=== PATIENT | female | born 1965 | race African-American/Black ===

== ENCOUNTER → 2016-10-14 | Day surgery (SDC) | payer OTHER ==
[~2016-10-14] MED LIST: AMLO10TA2 PO; ASPI325T4 PO; CHOL500015 PO; CITA20TA5 PO; CYAN10005 PO; CYAN25008 PO; CYCL10TA2 PO; ESTR2TAB PO; FURO-69 PO; HYDR-2672 PO; HYDR12.58 PO; IV RINGERS,LACTATED 1000ML 1,000 ML IV SCH; LIDOCAINE 2% PF Vial for OR 5 ML VIAL. ONE; MELO-150 PO; MONT10TA9 PO; OMEP20TA63 PO; PREG150C PO; PROPOFOL 20 ML IV ONE; RAMI10CA28 PO; SOTA80TA PO; TIZA4CAP PO; TRAM50TA PO
[2016-10-14 17:02] VITALS: BP 179/94
== END | disposition home or self-care (01) ==
LOC: ENDOS 15:30 → MERGE 16:00
PROVIDERS: ATTEND Internal Medicine Gastroenterology
DX: Z98.0 Intestinal bypass and anastomosis status (principal); I10 Essential (primary) hypertension; I48.91 Unspecified atrial fibrillation; J45.909 Unspecified asthma, uncomplicated; J44.9 Chronic obstructive pulmonary disease, unspecified; K21.9 Gastro-esophageal reflux disease without esophagitis; F41.9 Anxiety disorder, unspecified; Z85.43 Personal history of malignant neoplasm of ovary; Z90.710 Acquired absence of both cervix and uterus
CPT/HCPCS: 43239; G0500; J2704

== ENCOUNTER → 2016-12-26 | Day surgery (SDC) | payer OTHER ==
[~2016-12-26] MED LIST changes: -ASPI325T4 PO; +ASPI325T8 PO; -CHOL500015 PO; +CHOL500045 PO; -CYAN10005 PO; +CYAN10005 SQ; -HYDR-2672 PO; +HYDR-2766 PO; -MELO-150 PO; +MELO15TA23 PO; +PROPOFOL 0 ML IV ONE; -RAMI10CA28 PO; +RAMI10CA34 PO; -SOTA80TA PO; +SOTA80TA48 PO
[2016-12-26 09:52] VITALS: BP 98/51
--- NOTE | 2016-12-27 05:25 | HP ---
ADMIT DATE: 12/26/2016 HISTORY OF PRESENT ILLNESS: This is a 51-year-old -[place] female whose past medical history is significant for hypertension, gastroesophageal reflux disease as well as fibromyalgia, renal insufficiency, history of uterine cancer, status post hysterectomy and gastric bypass surgery, seen with persistent ulcer. Has been avoiding NSAIDs and other anti-inflammatories for the past 2 months. Upper endoscopy confirmed healing since she has been on Carafate and Prilosec ____. PAST MEDICAL HISTORY: Hypertension, status post gastric bypass surgery, uterine cancer status post hysterectomy as well as fibromyalgia, renal insufficiency. ALLERGIES: INCLUDE ACETAMINOPHEN, LATEX AND PROPOXYPHENE. MEDICATIONS: Include amlodipine, vitamin D3, citalopram, cyclobenzaprine, estradiol, Lasix, hydrocodone, ____, ramipril, Prilosec, sotalol and tramadol. FAMILY AND SOCIAL HISTORY: Significant for colon cancer with 1 sibling, breast cancer with multiple aunts and maternal grandmothers as well as hypertension. REVIEW OF SYSTEMS: As per records. PHYSICAL EXAMINATION: GENERAL: Reveals a well-nourished, well-developed -[place] female. VITAL SIGNS: Temp is 97.5, pulse ____, respiratory rate is 18. HEENT: Reveals a normocephalic, atraumatic head. Pupils and extraocular muscles not tested. Sclerae anicteric. NECK: Supple. LUNGS: Clear. CARDIOVASCULAR: Reveals an S1, S2 without S3, S4 or appreciable murmur. ABDOMEN: Reveals a soft abdomen, normal bowel sounds, without appreciable hepatosplenomegaly. EXTREMITIES: Reveals no cyanosis, clubbing or edema. IMPRESSION: Gastric ulcer. Surveillance exam is recommended today to confirm healing. Risks and benefits of the procedure including the risk of hemorrhage or perforation discussed with the patient who is willing to proceed at this time. TRUDI STRONG MD DR: LIO/meenu JOB#: [id number] / [id number]
== END | disposition home or self-care (01) ==
LOC: ENDOS 08:13
PROVIDERS: ATTEND Internal Medicine Gastroenterology
DX: K25.7 Chronic gastric ulcer without hemorrhage or perforation (principal); Z98.0 Intestinal bypass and anastomosis status; I48.91 Unspecified atrial fibrillation; J44.9 Chronic obstructive pulmonary disease, unspecified; J45.909 Unspecified asthma, uncomplicated; K21.9 Gastro-esophageal reflux disease without esophagitis; Z90.710 Acquired absence of both cervix and uterus; Z85.42 Personal history of malignant neoplasm of other parts of uterus; Z85.43 Personal history of malignant neoplasm of ovary; Z87.39 Personal history of other diseases of the musculoskeletal system and connective tissue; F41.9 Anxiety disorder, unspecified; I12.9 Hypertensive chronic kidney disease with stage 1 through stage 4 chronic kidney disease, or unspecified chronic kidney disease; N18.9 Chronic kidney disease, unspecified; Z88.6 Allergy status to analgesic agent; Z91.040 Latex allergy status; Z91.048 Other nonmedicinal substance allergy status
CPT/HCPCS: 43235; J2704

== ENCOUNTER → 2018-04-05 | Outpatient (CLI) | payer OTHER ==
[2016-12-26 09:52] VITALS: BP 98/51
[~2018-04-05] MED LIST changes: -AMLO10TA2 PO; +AMLO10TA6 PO; +ASPI81TA50 PO; -CITA20TA5 PO; +CITA20TA6 PO; +DULO20CA PO; +FLUT1DIS5 IH; -IV RINGERS,LACTATED 1000ML 1,000 ML IV SCH; -LIDOCAINE 2% PF Vial for OR 5 ML VIAL. ONE; +LOSA100T7 PO; +NAPR-677 PO; -PROPOFOL 0 ML IV ONE; -PROPOFOL 20 ML IV ONE; +PROVENTIL HFA6.7 GM IH; +ROFL500T7 PO
--- NOTE | 2018-04-05 15:30 | EKG ---
[facility] [address] [place] [address] Test Date: 2018-04-05 Test Time: 14:35:41 Pat Name: NICK MCADAMS Department: Room: Gender: F Utility Clerk: ABRAHAM Carrasquillo : 1965 Requested By: RICO JOHNSON Order Number: [id number] Reading MD: Hal Stephens MD Measurements Intervals [place] Rate: 69 P: 41 HI: 168 QRS: 10 QRSD: 78 T: 16 QT: 432 QTc: 465 Interpretive Statements SINUS RHYTHM Electronically Signed On 04-06-2018 10:07:57 CDT by Hal Stephens MD
--- NOTE | 2018-04-05 17:36 | RAD ---
Chest, 2 views, 04/05/2018: HISTORY: Preop evaluation The heart size and pulmonary vascularity are normal. There is mild linear scarring or atelectasis in the left lung laterally. No pulmonary consolidation is seen. There is no evidence of pleural fluid. There is a mild thoracolumbar scoliosis. IMPRESSION: Minimal linear scarring or atelectasis on the left. Electronically signed by: Rayshawn Palumbo MD (04/05/2018 5:32 PM) [facility]
== END | disposition home or self-care (01) ==
LOC: SURGPAT 14:17
PROVIDERS: ATTEND Neurological Surgery
DX: Z01.818 Encounter for other preprocedural examination (principal); M41.85 Other forms of scoliosis, thoracolumbar region; I12.9 Hypertensive chronic kidney disease with stage 1 through stage 4 chronic kidney disease, or unspecified chronic kidney disease; N18.9 Chronic kidney disease, unspecified; J44.9 Chronic obstructive pulmonary disease, unspecified; M17.12 Unilateral primary osteoarthritis, left knee; K21.9 Gastro-esophageal reflux disease without esophagitis; I48.91 Unspecified atrial fibrillation; Z85.43 Personal history of malignant neoplasm of ovary; Z85.42 Personal history of malignant neoplasm of other parts of uterus; Z87.39 Personal history of other diseases of the musculoskeletal system and connective tissue; Z90.710 Acquired absence of both cervix and uterus; Z88.6 Allergy status to analgesic agent; Z88.8 Allergy status to other drugs, medicaments and biological substances
CPT/HCPCS: 71046; 87641; 93005

== ENCOUNTER → 2018-04-06 | Day surgery (SDC) | payer OTHER ==
[~2018-04-06] VITALS: Ht 149.9 cm; Wt 118.8 kg
[~2018-04-06] MED LIST changes: +BACITRACIN 50,000 UNIT in IV NORMAL SALINE 1000ML BAG 1,000 ML IRR ONE; +BUPIVAC MPF-EPI 0.5%-1:200000 30 ML VIAL. ONE; +GELATIN SPONGE SIZE 100. ONE; +HYDROmorphone 2 MG/ML VIAL IV PRN; +IV NORMAL SALINE 1000ML BAG 1,000 ML IV SCH; +IV RINGERS,LACTATED 1000ML 1,000 ML IV SCH; +LIDOCAINE 1% PF 2 ML VIAL. ID PRN; +MIDAZOLAM HCL/PF 2 MG/2 ML VIAL. ONE; +MORPHINE SULFATE 2 MG/ML VIAL. IV PRN; +ONDANSETRON PF 4 MG/2 ML VIAL. IV PRN; +PROCHLORPERAZINE 10 MG/2 ML VIAL. IV PRN; +PROPOFOL 0 ML IV ONE; +PROPOFOL 50 ML IV ONE; +REMIFENTANIL 2 MG VIAL. IV ONE; +ROCURONIUM 50 MG/5 ML VIAL. ONE; +THROMBIN TOPICAL 20,000 UNIT SPRAY.SYRN KIT TP ONE; +fentaNYL PF VIAL 100 MCG/2 ML VIAL IV PRN; +fentaNYL PF VIAL 100 MCG/2 ML VIAL ONE
[2018-04-06 10:56] VITALS: BP 127/70
[2018-04-06 11:32] LABS: BASO % 0 % (0-3); EOS # 0.2 x10^3/uL (0.0-0.7); EOS % 3 % (0-3); HEMATOCRIT 34.3 % (36.0-47.0); HEMOGLOBIN 11.2 g/dL (12.0-15.5); LYMPH # 1.5 x10^3/uL (1.0-4.8); LYMPH % 22 % (24-48); MEAN CORPUSCULAR HEMOGLOBIN 27 pg (25-35); MEAN CORPUSCULAR HGB CONC 33 g/dL (31-37); MEAN CORPUSCULAR VOLUME 82 fL (79-100); MONO # 0.7 x10^3/uL (0.0-1.1); MONO % 9 % (0-9); NEUT # 4.6 x10^3uL (1.8-7.7); NEUT % 66 % (31-73); PLATELET COUNT 365 x10^3/uL (140-400); RED BLOOD COUNT 4.18 x10^6/uL (3.50-5.40); RED CELL DISTRIBUTION WIDTH 16.9 % (11.5-14.5)
[2018-04-06 11:40] LABS: PROTHROMBIN TIME PATIENT 12.8 SEC (11.7-14.0)
[2018-04-06 11:44] LABS: CALCIUM 9.5 mg/dL (8.5-10.1); CREATININE 1.1 mg/dL (0.6-1.0); GFR 62.6; POTASSIUM 4.2 mmol/L (3.5-5.1)
[2018-04-06 11:51] LABS: ALBUMIN 2.9 g/dL (3.4-5.0); ALBUMIN/GLOBULIN RATIO 0.6 (1.0-1.7); TOTAL BILIRUBIN 0.4 mg/dL (0.2-1.0); TOTAL PROTEIN 7.7 g/dL (6.4-8.2)
== END | disposition home or self-care (01) ==
LOC: SURG 10:19
PROVIDERS: ATTEND Neurological Surgery
DX: N88.2 Stricture and stenosis of cervix uteri (principal); Z53.8 Procedure and treatment not carried out for other reasons; Z88.6 Allergy status to analgesic agent; Z88.8 Allergy status to other drugs, medicaments and biological substances; Z91.040 Latex allergy status; Z91.048 Other nonmedicinal substance allergy status
CPT/HCPCS: 36415; 80053; 85025; 85610; J0690; J2704; J3490; J2250; J3010; J7030

== ENCOUNTER 2018-04-13 06:41 | Observation (INO) | payer OTHER ==
[~2018-04-13] VITALS: Ht 149.9 cm; Wt 118.8 kg
[2018-04-13] VITALS (10 sets, daily range): BP systolic 120–157; BP diastolic 74–96
[~2018-04-13 06:41] MED LIST changes: +BUPIVAC MPF-EPI 0.5%-1:200000 30 ML VIAL. INJ ONE; -BUPIVAC MPF-EPI 0.5%-1:200000 30 ML VIAL. ONE; -GELATIN SPONGE SIZE 100. ONE; -HYDROmorphone 2 MG/ML VIAL IV PRN; -IV NORMAL SALINE 1000ML BAG 1,000 ML IV SCH; -IV RINGERS,LACTATED 1000ML 1,000 ML IV SCH; -LIDOCAINE 1% PF 2 ML VIAL. ID PRN; -MIDAZOLAM HCL/PF 2 MG/2 ML VIAL. ONE; -MORPHINE SULFATE 2 MG/ML VIAL. IV PRN; -ONDANSETRON PF 4 MG/2 ML VIAL. IV PRN; -PROCHLORPERAZINE 10 MG/2 ML VIAL. IV PRN; -PROPOFOL 0 ML IV ONE; -PROPOFOL 50 ML IV ONE; -REMIFENTANIL 2 MG VIAL. IV ONE; -ROCURONIUM 50 MG/5 ML VIAL. ONE; -THROMBIN TOPICAL 20,000 UNIT SPRAY.SYRN KIT TP ONE; -fentaNYL PF VIAL 100 MCG/2 ML VIAL IV PRN; -fentaNYL PF VIAL 100 MCG/2 ML VIAL ONE
[2018-04-13] MEDS ORDERED: fentaNYL PF VIAL 100 MCG/2 ML VIAL IV PRN ×2 (07:00→13:30)
[2018-04-13] MEDS ORDERED: HYDROmorphone 2 MG/ML VIAL IV PRN (07:00)
[2018-04-13] MEDS ORDERED: MORPHINE SULFATE 2 MG/ML VIAL. IV PRN (07:00)
[2018-04-13] MEDS ORDERED: LIDOCAINE 1% PF 2 ML VIAL. ID PRN (07:00)
[2018-04-13] MEDS ORDERED: PROCHLORPERAZINE 10 MG/2 ML VIAL. IV PRN (07:00)
[2018-04-13] MEDS ORDERED: IV RINGERS,LACTATED 1000ML 1,000 ML IV SCH (07:00)
[2018-04-13] MEDS ORDERED: GELATIN SPONGE SIZE 100. ONE (07:52)
[2018-04-13] MEDS ORDERED: THROMBIN TOPICAL 20,000 UNIT SPRAY.SYRN KIT TP ONE (07:52)
[2018-04-13] MEDS ORDERED: PROPOFOL 20 ML IV ONE ×2 (07:59→09:36)
[2018-04-13] MEDS ORDERED: PROPOFOL 50 ML IV ONE ×4 (07:59→10:06)
[2018-04-13] MEDS ORDERED: DEXAMETHASONE SOD PHOS 20 MG/5 ML VIAL. ONE (07:59)
[2018-04-13] MEDS ORDERED: MIDAZOLAM HCL/PF 2 MG/2 ML VIAL. ONE (08:00)
[2018-04-13] MEDS ORDERED: ROCURONIUM 50 MG/5 ML VIAL. ONE (08:00)
[2018-04-13] MEDS ORDERED: fentaNYL PF VIAL 100 MCG/2 ML VIAL ONE ×3 (08:00→13:00)
[2018-04-13] MEDS ORDERED: PHENYLEPHRINE 10 MG/ML VIAL. ONE (08:01)
[2018-04-13] MEDS ORDERED: REMIFENTANIL 2 MG VIAL. IV ONE (08:01)
[2018-04-13] MEDS ORDERED: GLYCOPYRROLATE 1 MG/5 ML VIAL. ONE (09:11)
[2018-04-13] MEDS ORDERED: NEOSTIGMINE METHYLSULFATE 5 MG/5 ML SYRINGE. ONE (09:12)
[2018-04-13] MEDS ORDERED: PROPOFOL 100 ML IV ONE ×2 (09:13→10:40)
[2018-04-13] MEDS ORDERED: ePHEDrine PF IN SALINE 50 MG/5 ML DISP.SYRIN IV ONE (09:23)
[2018-04-13] MEDS ORDERED: REMIFENTANIL 1 MG VIAL. IV ONE ×3 (09:30→09:31)
[2018-04-13] MEDS ORDERED: DESFLURANE > 120 MINUTES IH ONE (12:20)
[2018-04-13] MEDS ORDERED: MAG HYDROX/ALUMINUM HYD/SIMETH 30 ML ORAL.SUSP PO PRN (12:30)
[2018-04-13] MEDS ORDERED: NALOXONE 0.4 MG/ML VIAL. IV PRN (12:30)
[2018-04-13] MEDS ORDERED: ONDANSETRON PF 4 MG/2 ML VIAL. IV PRN (12:30)
[2018-04-13] MEDS ORDERED: CALCIUM CARBONATE 500 MG TAB.CHEW PO PRN (12:30)
[2018-04-13] MEDS ORDERED: 0.9 % SODIUM CHLORIDE 10 ML DISP.SYRIN. IV PRN (12:30)
[2018-04-13] MEDS ORDERED: oxyCODONE IR 5 MG TABLET PO PRN (12:30)
[2018-04-13] MEDS ORDERED: ZOLPIDEM 5 MG TABLET. PO PRN (12:30)
[2018-04-13] MEDS ORDERED: MAGNESIUM HYDROXIDE 2,400 MG/30 ML ORAL.SUSP. PO PRN (12:30)
--- NOTE | 2018-04-13 12:44 | PDOC ---
BRIEF OPERATIVE NOTE Date: Apr 13, 2018 Pre-Op Diagnosis cervical disk herniations C4-5 and C5-6 with radiculopathy and weakness Post-Op Diagnosis same Procedure Performed ACDF 4-5, 5-6 Surgeon Monse Anesthesiologist Oscar Anesthesia Type: General Blood Loss 25mL Specimens Obtained cervical disk Findings prominent stenosis, motor potentials decreased on left at beginning of procedure and markedly improved at end of procedure Complications none apparent RICO JOHNSON MD Apr 13, 2018 12:44
[2018-04-13] MEDS ORDERED: NON FORMULARY ITEM (Albuterol Sulfate (Proventil Hfa Inhaler) 1 PUFF) IH PRN (12:45)
--- NOTE | 2018-04-13 13:07 | PDOC ---
Date and Time Patient had a documented episode of malignant hyperthermia in 1994. She has 2 immediate family members that also have had documented episodes. Halothane caffeine contraction test on muscle biopsy positive. Uneventful non triggering anesthetic. ETCO2 and temperature continuously monitored throughout OR. No changes ocurred. Awake and stable in PACU. She can be monitored on postop floor. See orders Current Medications Current Medications Fentanyl Citrate (Fentanyl 2ml Vial) 25 mcg PRN Q5MIN PRN IV MILD PAIN; Start 04/13/18 at 07:00; Stop 04/14/18 at 06:59 Fentanyl Citrate (Fentanyl 2ml Vial) 50 mcg PRN Q5MIN PRN IV MODERATE TO SEVERE PAIN; Start 04/13/18 at 07:00; Stop 04/14/18 at 06:59 Morphine Sulfate (Morphine Sulfate) 1 mg PRN Q10MIN PRN IV SEVERE PAIN; Start 04/13/18 at 07:00; Stop 04/14/18 at 06:59 Ringer's Solution 1,000 ml @ 30 mls/hr Q24H IV ; Start 04/13/18 at 07:00; Stop 04/13/18 at 18:59 Lidocaine HCl (Xylocaine-Mpf 1% 2ml Vial) 2 ml PRN 1X PRN ID IV START; Start 04/13/18 at 07:00; Stop 04/14/18 at 06:59 Hydromorphone HCl (Dilaudid) 0.5 mg PRN Q10MIN PRN IV SEV PAIN, Second choice; Start 04/13/18 at 07:00; Stop 04/14/18 at 06:59 Prochlorperazine Edisylate (Compazine) 5 mg PACU PRN PRN IV NAUSEA, MRX1; Start 04/13/18 at 07:00; Stop 04/14/18 at 06:59 Bacitracin 56686 unit/Sodium Chloride 1,000 ml @ 1,000 mls/hr 1X ONCE IRR Last administered on 04/13/18at 09:33; Start 04/13/18 at 06:00; Stop 04/13/18 at 06:59; Status DC Bupivacaine HCl/ Epinephrine Bitart (Sensorcain-Mpf Epi 0.5%-1:319108) 30 ml 1X ONCE INJ Last administered on 04/13/18at 09:33; Start 04/13/18 at 06:00; Stop 04/13/18 at 06:01; Status DC Cefazolin Sodium/ Dextrose 50 ml @ As Directed STK-MED ONCE IV ; Start 04/13/18 at 07:49; Stop 04/13/18 at 07:50; Status DC Propofol 20 ml @ As Directed STK-MED ONCE IV ; Start 04/13/18 at 07:59; Stop at 08:00; Status DC Dexamethasone Sodium Phosphate (Decadron) 20 mg STK-MED ONCE .ROUTE ; Start 04/13/18 at 07:59; Stop 04/13/18 at 08:00; Status DC Propofol 50 ml @ As Directed STK-MED ONCE IV ; Start 04/13/18 at 07:59; Stop at 08:00; Status DC Fentanyl Citrate (Fentanyl 2ml Vial) 100 mcg STK-MED ONCE .ROUTE ; Start at 08:00; Stop 04/13/18 at 08:02; Status DC Rocuronium Warner (Zemuron) 50 mg STK-MED ONCE .ROUTE ; Start 04/13/18 at 08:00 ; Stop 04/13/18 at 08:02; Status DC Midazolam HCl (Versed) 2 mg STK-MED ONCE .ROUTE ; Start 04/13/18 at 08:00; Stop 04/13/18 at 08:02; Status DC Remifentanil HCl (Ultiva) 2 mg STK-MED ONCE IV ; Start 04/13/18 at 08:01; Stop 04/13/18 at 08:02; Status DC Phenylephrine HCl (Issac-Synephrine Inj) 10 mg STK-MED ONCE .ROUTE ; Start at 08:01; Stop 04/13/18 at 08:02; Status DC Gelatin (Gelfoam Size 100) 1 each STK-MED ONCE .ROUTE Last administered on 04/13/18at 09:33; Start 04/13/18 at 07:52; Stop 04/13/18 at 08:53; Status DC Thrombin 20,000 unit STK-MED ONCE TP Last administered on 04/13/18at 09:33; Start 04/13/18 at 07:52; Stop 04/13/18 at 08:53; Status DC Glycopyrrolate (Robinul) 1 mg STK-MED ONCE .ROUTE ; Start 04/13/18 at 09:11; Stop 04/13/18 at 09:12; Status DC Neostigmine Methylsulfate (Neostigmine Methylsulfate) 5 mg STK-MED ONCE .ROUTE ; Start 04/13/18 at 09:12; Stop 04/13/18 at 09:13; Status DC Ephedrine Sulfate (ePHEDrine PF IN SALINE SYRINGE) 50 mg STK-MED ONCE IV ; Start 04/13/18 at 09:23; Stop 04/13/18 at 09:24; Status DC Remifentanil HCl (Ultiva) 1 mg STK-MED ONCE IV ; Start 04/13/18 at 09:30; Stop 04/13/18 at 09:31; Status DC Remifentanil HCl (Ultiva) 1 mg STK-MED ONCE IV ; Start 04/13/18 at 09:31; Stop 04/13/18 at 09:32; Status DC Remifentanil HCl (Ultiva) 1 mg STK-MED ONCE IV ; Start 04/13/18 at 09:31; Stop 04/13/18 at 09:32; Status DC Propofol 20 ml @ As Directed STK-MED ONCE IV ; Start 04/13/18 at 09:36; Stop at 09:37; Status DC Propofol 50 ml @ As Directed STK-MED ONCE IV ; Start 04/13/18 at 09:36; Stop at 09:37; Status DC Propofol 50 ml @ As Directed STK-MED ONCE IV ; Start 04/13/18 at 10:06; Stop at 10:07; Status DC Propofol 50 ml @ As Directed STK-MED ONCE IV ; Start 04/13/18 at 10:06; Stop at 10:07; Status DC Propofol 100 ml @ As Directed STK-MED ONCE IV ; Start 04/13/18 at 09:13; Stop 04/13/18 at 10:13; Status DC Propofol 100 ml @ As Directed STK-MED ONCE IV ; Start 04/13/18 at 10:40; Stop 04/13/18 at 11:41; Status DC Fentanyl Citrate (Fentanyl 2ml Vial) 100 mcg STK-MED ONCE .ROUTE ; Start at 12:19; Stop 04/13/18 at 12:20; Status DC Desflurane (Suprane) 90 ml STK-MED ONCE IH ; Start 04/13/18 at 12:20; Stop 04/13 at 12:21; Status DC Multivitamins (Thera M Plus) 1 tab DAILY PO ; Start 04/14/18 at 09:00; Status UNV Calcium/Vitamin D (Oscal D 500mg/ 200uts) 1 tab BIDWMEALS PO ; Start 04/13/18 at 17:00; Status UNV Ferrous Sulfate (Feosol) 325 mg BIDWMEALS PO ; Start 04/13/18 at 17:00; Status UNV Al Hydroxide/Mg Hydroxide (Mylanta Plus Xs) 30 ml PRN Q3HRS PRN PO HEARTBURN / GAS; Start 04/13/18 at 12:30; Status UNV Calcium Carbonate/ Glycine (Tums) 500 mg PRN Q3HRS PRN PO INDIGESTION; Start 04/13/18 at 12:30; Status UNV Diphenhydramine HCl (Benadryl) 25 mg PRN Q6HRS PRN PO ITCHING; Start 04/13/18 at 12:30; Status UNV Zolpidem Tartrate (Ambien) 5 mg PRN QHS PRN PO INSOMNIA, MAY REPEAT IN 1HR; Start 04/13/18 at 12:30; Status UNV Naloxone HCl (Narcan) 0.1 mg PRN Q2MIN PRN IV ADMIN; Start 04/13/18 at 12:30; Status UNV Sodium Chloride (Normal Saline Flush) 3 ml QSHIFT PRN IV AFTER MEDS AND BLOOD DRAWS; Start 04/13/18 at 12:30; Status UNV Oxycodone HCl (Roxicodone) 5 mg PRN Q4HRS PRN PO MILD PAIN, 1ST CHOICE; Start 04/13/18 at 12:30; Status UNV Oxycodone HCl (Roxicodone) 10 mg PRN Q4HRS PRN PO MODERATE PAIN, SEVERE PAIN; Start 04/13/18 at 12:30; Status UNV Methocarbamol (Robaxin) 750 mg TID PO ; Start 04/13/18 at 14:00; Status UNV Senna/Docusate Sodium (Senna Plus) 1 tab BID PO ; Start 04/13/18 at 21:00; Status UNV Docusate Sodium (Colace) 100 mg BID PO ; Start 04/13/18 at 21:00; Status UNV Magnesium Hydroxide (Milk Of Magnesia) 2,400 mg PRN Q12HR PRN PO CONSTIPATION; Start 04/13/18 at 12:30; Status UNV Ondansetron HCl (Zofran) 4 mg PRN Q6HRS PRN IV NAUESA, 1ST CHOICE; Start at 12:30; Status UNV Amlodipine Besylate (Norvasc) 10 mg DAILY PO ; Start 04/14/18 at 09:00; Status UNV Furosemide (Lasix) 10 mg DAILY PO ; Start 04/14/18 at 09:00; Status UNV Non-Formulary Medication (Albuterol Sulfate (Proventil Hfa Inhaler)) 1 puff PRN Q4HRS PRN IH FOR ASTHMA; Start 04/13/18 at 12:45; Status UNV Non-Formulary Medication (Cholecalciferol (Vitamin D3) (Vitamin D)) 50,000 unit WEEKLY PO ; Start 04/20/18 at 09:00; Status UNV Non-Formulary Medication (Duloxetine Hcl (Cymbalta)) 20 mg DAILY PO ; Start 04/22 at 09:00; Status UNV Non-Formulary Medication (Fluticasone/ Salmeterol (Advair 500-50 Diskus)) 1 inh BID IH ; Start 04/13/18 at 21:00; Status UNV Non-Formulary Medication (Losartan Potassium ) 100 mg DAILY PO ; Start at 09:00; Status UNV Non-Formulary Medication (Montelukast Sodium (Montelukast Sodium Tablet)) 10 mg HS PO ; Start 04/13/18 at 21:00; Status UNV Non-Formulary Medication (Omeprazole Magnesium (Prilosec Otc)) 1 tab DAILY PO ; Start 04/14/18 at 09:00; Status UNV Non-Formulary Medication (Pregabalin (Lyrica)) 200 mg BID PO ; Start 04/13/18 at 21:00; Status UNV Non-Formulary Medication (Sotalol Hcl (Sotalol)) 120 mg BID PO ; Start 04/13/18 at 21:00; Status UNV Fentanyl Citrate (Fentanyl 2ml Vial) 100 mcg STK-MED ONCE .ROUTE ; Start at 13:00; Stop 04/13/18 at 13:01; Status DC Active Scripts Active Reported Proventil Hfa Inhaler (Albuterol Sulfate) 6.7 Gm Hfa.aer.ad 1 Puff IH PRN Q4HRS PRN Advair 500-50 Diskus (Fluticasone/Salmeterol) 1 Each Disk.w.dev 1 Inh IH BID Daliresp (Roflumilast) 500 Mcg Tablet 500 Mcg PO Aspir-Low (Aspirin) 81 Mg Tablet. 81 Mg PO Cymbalta (Duloxetine Hcl) 20 Mg Capsule. 20 Mg PO DAILY Naproxen Sodium 550 Mg Tablet 550 Mg PO Losartan Potassium 100 Mg Tablet 100 Mg PO DAILY Amlodipine Besylate 10 Mg Tablet 10 Mg PO DAILY Lasix (Furosemide) 20 Mg Tablet 10 Mg PO DAILY Montelukast Sodium Tablet (Montelukast Sodium) 10 Mg Tablet 10 Mg PO HS Prilosec Otc (Omeprazole Magnesium) 20 Mg Tablet. 1 Tab PO DAILY Cyclobenzaprine Hcl 10 Mg Tablet 10 Mg PO TID Vitamin D (Cholecalciferol (Vitamin D3)) 5,000 Unit Tablet 50,000 Unit PO WEEKLY Estradiol 2 Mg Tablet 2 Mg PO Lyrica (Pregabalin) 150 Mg Capsule 200 Mg PO BID 30 Days Sotalol (Sotalol Hcl) 80 Mg Tablet 120 Mg PO BID Vitamin B-12 (Cyanocobalamin (Vitamin B-12)) 1,000 Mcg Tablet 1,000 Mcg SQ Q4WK Hydrocodone-Apap 10-325 (Hydrocodone Bit/Acetaminophen) 1 Each Tablet 1 Tab PO PRN Q6HRS PRN LAST VITALS Vital Signs Date Time Temp Pulse Resp B/P (MAP) Pulse Ox O2 Delivery O2 Flow Rate FiO2 04/13/18 07:33 97.3 76 18 140/82 98 Room Air 97.3 ALEXA HA MD Apr 13, 2018 13:07
[2018-04-13] MEDS: fentaNYL PF VIAL 100 MCG/2 ML VIAL IV PRN ×6 (13:13→23:29)
[2018-04-13] MEDS ORDERED: ALBUTEROL SULFATE 2.5 MG/3 ML NEBU. NEB PRN (13:45)
[2018-04-13] MEDS: METHOCARBAMOL 750 MG TABLET PO SCH ×2 (14:00→21:29)
[2018-04-13] MEDS: FERROUS SULFATE 325 MG TABLET. PO SCH (17:12)
[2018-04-13] MEDS: CALCIUM CARB/VIT D3 500/200 TABLET. PO SCH (17:12)
[2018-04-13] MEDS: diphenhydrAMINE HCL 25 MG CAPSULE PO PRN (17:12)
[2018-04-13] MEDS: BUDESONIDE 0.5 MG/2 ML NEBU. NEB SCH (19:22)
[2018-04-13] MEDS: ALBUTEROL SULFATE 2.5 MG/3 ML NEBU. NEB SCH (19:22)
[2018-04-13] MEDS ORDERED: MONTELUKAST SODIUM 10 MG TABLET. PO SCH (21:00)
[2018-04-13] MEDS ORDERED: NON FORMULARY ITEM (Fluticasone/Salmeterol (Advair 500-50 Diskus) 1 INH) IH SCH (21:00)
[2018-04-13] MEDS: DOCUSATE SODIUM 100 MG CAPSULE. PO SCH (21:29)
[2018-04-13] MEDS: PREGABALIN 50 MG CAPSULE PO SCH (21:29)
[2018-04-13] MEDS: SENNOSIDES/DOCUSATE 8.6/50MG TABLET. PO SCH (21:30)
[2018-04-13] MEDS: SOTALOL 80 MG TABLET. PO SCH (21:33)
[2018-04-14] VITALS (7 sets, daily range): BP systolic 112–163; BP diastolic 64–88
[2018-04-14] MEDS: oxyCODONE IR 5 MG TABLET PO PRN ×4 (04:10→18:06)
[2018-04-14] MEDS: ALBUTEROL SULFATE 2.5 MG/3 ML NEBU. NEB SCH ×3 (06:59→15:42)
[2018-04-14] MEDS: BUDESONIDE 0.5 MG/2 ML NEBU. NEB SCH (06:59)
[2018-04-14] MEDS ORDERED: PANTOPRAZOLE 40 MG TABLET.DR. PO SCH (07:30)
[2018-04-14] MEDS: SENNOSIDES/DOCUSATE 8.6/50MG TABLET. PO SCH (08:34)
[2018-04-14] MEDS: DOCUSATE SODIUM 100 MG CAPSULE. PO SCH (08:34)
[2018-04-14] MEDS: CALCIUM CARB/VIT D3 500/200 TABLET. PO SCH ×2 (08:34→18:06)
[2018-04-14] MEDS: FERROUS SULFATE 325 MG TABLET. PO SCH ×2 (08:34→18:06)
[2018-04-14] MEDS: METHOCARBAMOL 750 MG TABLET PO SCH ×3 (08:34→18:06)
[2018-04-14] MEDS: diphenhydrAMINE HCL 25 MG CAPSULE PO PRN (08:35)
[2018-04-14] MEDS: PREGABALIN 50 MG CAPSULE PO SCH (08:36)
[2018-04-14] MEDS: SOTALOL 80 MG TABLET. PO SCH (08:37)
--- NOTE | 2018-04-14 08:52 | PDOC ---
PROGRESS NOTES Subjective Subjective Reports significant improvement of left shoulder weakness and resolution of upper extremity paresthesias. Objective Objective Vital Signs Date Time Temp Pulse Resp B/P (MAP) Pulse Ox O2 Delivery O2 Flow Rate FiO2 04/14/18 08:41 90 20 152/88 (109) Room Air 04/14/18 07:02 100 2.0 04/14/18 06:07 98.2 98.2 Intake and Output 04/14/18 07:00 Intake Total 2570 ml Output Total 2375 ml Balance 195 ml Intake Oral 1270 ml IV Total 1300 ml Output Urine Total 2350 ml Estimated Blood Loss 25 ml Physical Exam Physical Exam AAOx4, NAD, speech fluent with good phonation, eating solid breakfast, MELENDREZ 5/5, except left shoulder abduction now 4-/5 compared to 2-/5 prior to surgery, sensation intact LT Assessment Assessment POD 1 C4-5, 5-6 ACDF Plan Plan of Care Overall, appears to be recovering well thus far. Mobilize with PT/OT, standard precautions. Home health services likely be beneficial as she will be home alone after couple days. Anticipate d/c soon/today. Comment Review of Relevant I have reviewed the following items samira (where applicable) has been applied. Medications Current Medications Fentanyl Citrate (Fentanyl 2ml Vial) 25 mcg PRN Q5MIN PRN IV MILD PAIN; Start 04/13/18 at 07:00; Stop 04/14/18 at 06:59; Status DC Fentanyl Citrate (Fentanyl 2ml Vial) 50 mcg PRN Q5MIN PRN IV MODERATE TO SEVERE PAIN Last administered on 04/13/18at 13:57; Start 04/13/18 at 07:00; Stop 04/14/18 at 06:59; Status DC Morphine Sulfate (Morphine Sulfate) 1 mg PRN Q10MIN PRN IV SEVERE PAIN; Start 04/13/18 at 07:00; Stop 04/14/18 at 06:59; Status DC Ringer's Solution 1,000 ml @ 30 mls/hr Q24H IV ; Start 04/13/18 at 07:00; Stop 04/13/18 at 18:59; Status DC Lidocaine HCl (Xylocaine-Mpf 1% 2ml Vial) 2 ml PRN 1X PRN ID IV START; Start 04/13/18 at 07:00; Stop 04/14/18 at 06:59; Status DC Hydromorphone HCl (Dilaudid) 0.5 mg PRN Q10MIN PRN IV SEV PAIN, Second choice; Start 04/13/18 at 07:00; Stop 04/14/18 at 06:59; Status DC Prochlorperazine Edisylate (Compazine) 5 mg PACU PRN PRN IV NAUSEA, MRX1; Start 04/13/18 at 07:00; Stop 04/14/18 at 06:59; Status DC Bacitracin 72257 unit/Sodium Chloride 1,000 ml @ 1,000 mls/hr 1X ONCE IRR Last administered on 04/13/18at 09:33; Start 04/13/18 at 06:00; Stop 04/13/18 at 06:59; Status DC Bupivacaine HCl/ Epinephrine Bitart (Sensorcain-Mpf Epi 0.5%-1:074491) 30 ml 1X ONCE INJ Last administered on 04/13/18at 09:33; Start 04/13/18 at 06:00; Stop 04/13/18 at 06:01; Status DC Cefazolin Sodium/ Dextrose 50 ml @ As Directed STK-MED ONCE IV ; Start 04/13/18 at 07:49; Stop 04/13/18 at 07:50; Status DC Propofol 20 ml @ As Directed STK-MED ONCE IV ; Start 04/13/18 at 07:59; Stop at 08:00; Status DC Dexamethasone Sodium Phosphate (Decadron) 20 mg STK-MED ONCE .ROUTE ; Start 04/13/18 at 07:59; Stop 04/13/18 at 08:00; Status DC Propofol 50 ml @ As Directed STK-MED ONCE IV ; Start 04/13/18 at 07:59; Stop at 08:00; Status DC Fentanyl Citrate (Fentanyl 2ml Vial) 100 mcg STK-MED ONCE .ROUTE ; Start at 08:00; Stop 04/13/18 at 08:02; Status DC Rocuronium [place] (Zemuron) 50 mg STK-MED ONCE .ROUTE ; Start 04/13/18 at 08:00 ; Stop 04/13/18 at 08:02; Status DC Midazolam HCl (Versed) 2 mg STK-MED ONCE .ROUTE ; Start 04/13/18 at 08:00; Stop 04/13/18 at 08:02; Status DC Remifentanil HCl (Ultiva) 2 mg STK-MED ONCE IV ; Start 04/13/18 at 08:01; Stop 04/13/18 at 08:02; Status DC Phenylephrine HCl (Issac-Synephrine Inj) 10 mg STK-MED ONCE .ROUTE ; Start at 08:01; Stop 04/13/18 at 08:02; Status DC Gelatin (Gelfoam Size 100) 1 each STK-MED ONCE .ROUTE Last administered on 04/13/18at 09:33; Start 04/13/18 at 07:52; Stop 04/13/18 at 08:53; Status DC Thrombin 20,000 unit STK-MED ONCE TP Last administered on 04/13/18at 09:33; Start 04/13/18 at 07:52; Stop 04/13/18 at 08:53; Status DC Glycopyrrolate (Robinul) 1 mg STK-MED ONCE .ROUTE ; Start 04/13/18 at 09:11; Stop 04/13/18 at 09:12; Status DC Neostigmine Methylsulfate (Neostigmine Methylsulfate) 5 mg STK-MED ONCE .ROUTE ; Start 04/13/18 at 09:12; Stop 04/13/18 at 09:13; Status DC Ephedrine Sulfate (ePHEDrine PF IN SALINE SYRINGE) 50 mg STK-MED ONCE IV ; Start 04/13/18 at 09:23; Stop 04/13/18 at 09:24; Status DC Remifentanil HCl (Ultiva) 1 mg STK-MED ONCE IV ; Start 04/13/18 at 09:30; Stop 04/13/18 at 09:31; Status DC Remifentanil HCl (Ultiva) 1 mg STK-MED ONCE IV ; Start 04/13/18 at 09:31; Stop 04/13/18 at 09:32; Status DC Remifentanil HCl (Ultiva) 1 mg STK-MED ONCE IV ; Start 04/13/18 at 09:31; Stop 04/13/18 at 09:32; Status DC Propofol 20 ml @ As Directed STK-MED ONCE IV ; Start 04/13/18 at 09:36; Stop at 09:37; Status DC Propofol 50 ml @ As Directed STK-MED ONCE IV ; Start 04/13/18 at 09:36; Stop at 09:37; Status DC Propofol 50 ml @ As Directed STK-MED ONCE IV ; Start 04/13/18 at 10:06; Stop at 10:07; Status DC Propofol 50 ml @ As Directed STK-MED ONCE IV ; Start 04/13/18 at 10:06; Stop at 10:07; Status DC Propofol 100 ml @ As Directed STK-MED ONCE IV ; Start 04/13/18 at 09:13; Stop 04/13/18 at 10:13; Status DC Propofol 100 ml @ As Directed STK-MED ONCE IV ; Start 04/13/18 at 10:40; Stop 04/13/18 at 11:41; Status DC Fentanyl Citrate (Fentanyl 2ml Vial) 100 mcg STK-MED ONCE .ROUTE ; Start at 12:19; Stop 04/13/18 at 12:20; Status DC Desflurane (Suprane) 90 ml STK-MED ONCE IH ; Start 04/13/18 at 12:20; Stop 04/13 at 12:21; Status DC Multivitamins (Thera M Plus) 1 tab DAILY PO Last administered on 04/14/18at 08: 34; Start 04/14/18 at 09:00 Calcium/Vitamin D (Oscal D 500mg/ 200uts) 1 tab BIDWMEALS PO Last administered on 04/14/18at 08:34; Start 04/13/18 at 17:00 Ferrous Sulfate (Feosol) 325 mg BIDWMEALS PO Last administered on 04/14/18at 08 :34; Start 04/13/18 at 17:00 Al Hydroxide/Mg Hydroxide (Mylanta Plus Xs) 30 ml PRN Q3HRS PRN PO HEARTBURN / GAS; Start 04/13/18 at 12:30 Calcium Carbonate/ Glycine (Tums) 500 mg PRN Q3HRS PRN PO INDIGESTION; Start 04/13/18 at 12:30 Diphenhydramine HCl (Benadryl) 25 mg PRN Q6HRS PRN PO ITCHING Last administered on 04/14/18at 08:35; Start 04/13/18 at 12:30 Zolpidem Tartrate (Ambien) 5 mg PRN QHS PRN PO INSOMNIA, MAY REPEAT IN 1HR; Start 04/13/18 at 12:30 Naloxone HCl (Narcan) 0.1 mg PRN Q2MIN PRN IV ADMIN; Start 04/13/18 at 12:30 Sodium Chloride (Normal Saline Flush) 3 ml QSHIFT PRN IV AFTER MEDS AND BLOOD DRAWS; Start 04/13/18 at 12:30 Oxycodone HCl (Roxicodone) 5 mg PRN Q4HRS PRN PO MILD PAIN, 1ST CHOICE Last administered on 04/13/18at 17:13; Start 04/13/18 at 12:30 Oxycodone HCl (Roxicodone) 10 mg PRN Q4HRS PRN PO MODERATE PAIN, SEVERE PAIN Last administered on 04/14/18at 04:10; Start 04/13/18 at 12:30 Methocarbamol (Robaxin) 750 mg TID PO Last administered on 04/14/18at 08:34; Start 04/13/18 at 14:00 Senna/Docusate Sodium (Senna Plus) 1 tab BID PO Last administered on at 08:34; Start 04/13/18 at 21:00 Docusate Sodium (Colace) 100 mg BID PO Last administered on 04/14/18at 08:34; Start 04/13/18 at 21:00 Magnesium Hydroxide (Milk Of Magnesia) 2,400 mg PRN Q12HR PRN PO CONSTIPATION; Start 04/13/18 at 12:30 Ondansetron HCl (Zofran) 4 mg PRN Q6HRS PRN IV NAUESA, 1ST CHOICE; Start at 12:30 Amlodipine Besylate (Norvasc) 10 mg DAILY PO Last administered on 04/14/18at 08 :40; Start 04/14/18 at 09:00 Furosemide (Lasix) 10 mg DAILY PO Last administered on 04/14/18at 08:38; Start 04/14/18 at 09:00 Non-Formulary Medication (Albuterol Sulfate (Proventil Hfa Inhaler)) 1 puff PRN Q4HRS PRN IH FOR ASTHMA; Start 04/13/18 at 12:45; Status UNV Non-Formulary Medication (Cholecalciferol (Vitamin D3) (Vitamin D)) 50,000 unit WEEKLY PO ; Start 04/20/18 at 09:00 Duloxetine HCl (Cymbalta) 20 mg DAILY PO Last administered on 04/14/18at 08:34 ; Start 04/14/18 at 09:00 Non-Formulary Medication (Fluticasone/ Salmeterol (Advair 500-50 Diskus)) 1 inh BID IH ; Start 04/13/18 at 21:00; Status UNV Losartan Potassium (Cozaar) 100 mg DAILY PO Last administered on 04/14/18at 08: 39; Start 04/14/18 at 09:00 Montelukast Sodium (Singulair) 10 mg QHS PO Last administered on 04/13/18at 21: 30; Start 04/13/18 at 21:00 Pantoprazole Sodium (Protonix) 40 mg DAILYAC PO Last administered on at 07:09; Start 04/14/18 at 07:30 Pregabalin (Lyrica) 200 mg BID PO Last administered on 04/14/18at 08:36; Start 04/13/18 at 21:00 Sotalol HCl (Betapace) 120 mg BID PO Last administered on 04/14/18at 08:37; Start 04/13/18 at 21:00 Fentanyl Citrate (Fentanyl 2ml Vial) 100 mcg STK-MED ONCE .ROUTE ; Start at 13:00; Stop 04/13/18 at 13:01; Status DC Fentanyl Citrate (Fentanyl 2ml Vial) 25 mcg PRN Q1HR PRN IV Pain; Start at 13:30 Fentanyl Citrate (Fentanyl 2ml Vial) 50 mcg PRN Q1HR PRN IV Pain Last administered on 04/13/18at 23:29; Start 04/13/18 at 13:45 Albuterol Sulfate (Ventolin Neb Soln) 2.5 mg RTQID NEB Last administered on 04/22at 06:59; Start 04/13/18 at 16:00 Albuterol Sulfate (Ventolin Neb Soln) 2.5 mg PRN Q6HRS PRN NEB SHORTNESS OF BREATH; Start 04/13/18 at 13:45 Budesonide (Pulmicort) 0.5 mg RTBID NEB Last administered on 04/14/18at 06:59; Start 04/13/18 at 20:00 Cefazolin Sodium/ Dextrose 50 ml @ 100 mls/hr 1X ONCE IV Last administered on 04/13/18at 09:05; Start 04/13/18 at 14:30; Stop 04/13/18 at 14:59; Status DC Active Scripts Active Reported Proventil Hfa Inhaler (Albuterol Sulfate) 6.7 Gm Hfa.aer.ad 1 Puff IH PRN Q4HRS PRN Advair 500-50 Diskus (Fluticasone/Salmeterol) 1 Each Disk.w.dev 1 Inh IH BID Daliresp (Roflumilast) 500 Mcg Tablet 500 Mcg PO Aspir-Low (Aspirin) 81 Mg Tablet. 81 Mg PO Cymbalta (Duloxetine Hcl) 20 Mg Capsule. 20 Mg PO DAILY Naproxen Sodium 550 Mg Tablet 550 Mg PO Losartan Potassium 100 Mg Tablet 100 Mg PO DAILY Amlodipine Besylate 10 Mg Tablet 10 Mg PO DAILY Lasix (Furosemide) 20 Mg Tablet 10 Mg PO DAILY Montelukast Sodium Tablet (Montelukast Sodium) 10 Mg Tablet 10 Mg PO HS Prilosec Otc (Omeprazole Magnesium) 20 Mg Tablet. 1 Tab PO DAILY Cyclobenzaprine Hcl 10 Mg Tablet 10 Mg PO TID Vitamin D (Cholecalciferol (Vitamin D3)) 5,000 Unit Tablet 50,000 Unit PO WEEKLY Estradiol 2 Mg Tablet 2 Mg PO Lyrica (Pregabalin) 150 Mg Capsule 200 Mg PO BID 30 Days Sotalol (Sotalol Hcl) 80 Mg Tablet 120 Mg PO BID Vitamin B-12 (Cyanocobalamin (Vitamin B-12)) 1,000 Mcg Tablet 1,000 Mcg SQ Q4WK Hydrocodone-Apap 10-325 (Hydrocodone Bit/Acetaminophen) 1 Each Tablet 1 Tab PO PRN Q6HRS PRN Vitals/I & O Vital Sign - Last 24 Hours 04/13/18 04/13/18 04/13/18 04/13/18 12:43 12:43 12:58 13:13 Temp 97.4 97.4 97.4 97.4 Pulse 74 84 Resp 18 18 16 B/P (MAP) 120/57 145/71 Pulse Ox 96 99 99 O2 Delivery Simple Mask Mask Simple Mask Simple Mask O2 Flow Rate 10 10 10 10.0 04/13/18 04/13/18 04/13/18 04/13/18 13:13 13:23 13:28 13:37 Temp 97.3 97.4 97.3 97.4 Pulse 74 74 Resp 16 14 18 16 B/P (MAP) 145/75 130/70 Pulse Ox 98 99 95 96 O2 Delivery Nasal Cannula Room Air Nasal Cannula Nasal Cannula O2 Flow Rate 2 2 2.0 04/13/18 04/13/18 04/13/18 04/13/18 13:43 13:57 13:58 14:13 Temp 97.5 97.5 97.5 97.5 97.5 97.5 Pulse 72 72 70 Resp 16 18 16 16 B/P (MAP) 144/71 144/71 142/68 Pulse Ox 96 95 96 98 O2 Delivery Nasal Cannula Nasal Cannula Nasal Cannula Nasal Cannula O2 Flow Rate 2 2.0 2 2 04/13/18 04/13/18 04/13/18 04/13/18 14:14 14:20 14:20 14:21 Temp 98.3 98.3 Pulse 74 72 B/P (MAP) 120/85 (97) 130/89 (103) Pulse Ox 95 98 O2 Delivery Mask Nasal Cannula Nasal Cannula O2 Flow Rate 2 2.0 2.0 2.0 04/13/18 04/13/18 04/13/18 04/13/18 14:30 14:50 15:20 15:50 Temp 98.0 97.9 98.0 97.9 Pulse 70 72 77 B/P (MAP) 134/96 (109) 149/ 149/91 (110) Pulse Ox 95 94 96 96 O2 Delivery Nasal Cannula Room Air Room Air 04/13/18 04/13/18 04/13/18 04/13/18 15:50 16:50 17:13 17:50 Temp 98.5 98.0 98.5 98.0 Pulse 84 79 B/P (MAP) 154/87 (109) 157/87 (110) Pulse Ox 96 93 94 O2 Delivery Room Air Room Air Room Air Nasal Cannula O2 Flow Rate 2.0 04/13/18 04/13/18 04/13/18 04/13/18 18:15 18:50 19:22 20:00 Temp 98.4 98.3 98.4 98.3 Pulse Ox 93 95 O2 Delivery Nasal Cannula Nasal Cannula O2 Flow Rate 2.0 2.0 04/13/18 04/13/18 04/13/18 04/13/18 20:00 20:01 20:15 21:15 Temp 98.2 98.3 98.2 98.3 Pulse 70 72 Resp 20 20 20 B/P (MAP) 150/90 (110) 152/92 (112) Pulse Ox 94 93 99 O2 Delivery Nasal Cannula Nasal Cannula Nasal Cannula Nasal Cannula O2 Flow Rate 2.0 2.0 2.0 2.0 04/13/18 04/13/18 04/13/18 04/13/18 21:33 23:00 23:29 23:59 Temp 98.2 98.2 Pulse 72 72 Resp 20 20 18 B/P (MAP) 152/92 136/74 (94) Pulse Ox 95 95 95 O2 Delivery Nasal Cannula Nasal Cannula Nasal Cannula O2 Flow Rate 2.0 2.0 2.0 04/14/18 04/14/18 04/14/18 04/14/18 02:39 04:10 05:15 06:07 Temp 98.0 98.2 98.0 98.2 Pulse 77 71 Resp 20 20 20 B/P (MAP) 149/79 (102) 157/76 (103) Pulse Ox 95 99 O2 Delivery Nasal Cannula Nasal Cannula Nasal Cannula Nasal Cannula O2 Flow Rate 2.0 2.0 2.0 2.0 04/14/18 04/14/18 04/14/18 04/14/18 06:08 07:02 08:37 08:39 Pulse 74 90 90 B/P (MAP) 131/76 (94) 152/88 152/88 Pulse Ox 100 O2 Delivery Nasal Cannula O2 Flow Rate 2.0 04/14/18 04/14/18 08:40 08:41 Pulse 90 90 Resp 20 B/P (MAP) 152/88 152/88 (109) O2 Delivery Room Air Intake and Output 04/13/18 04/13/18 04/14/18 15:00 23:00 07:00 Intake Total 1320 ml 700 ml 550 ml Output Total 25 ml 1650 ml 700 ml Balance 1295 ml -950 ml -150 ml RICO JOHNSON MD Apr 14, 2018 08:52
[2018-04-14] MEDS ORDERED: DULoxetine HCL 20 MG CAPSULE.DR PO SCH (09:00)
[2018-04-14] MEDS ORDERED: amLODIPine BESYLATE 10 MG TABLET PO SCH (09:00)
[2018-04-14] MEDS ORDERED: FUROSEMIDE 20 MG TABLET PO SCH (09:00)
[2018-04-14] MEDS ORDERED: MULTIVITAMIN with MINERAL TABLET. PO SCH (09:00)
[2018-04-14] MEDS ORDERED: LOSARTAN POTASSIUM 50 MG TABLET. PO SCH (09:00)
[2018-04-14] MEDS ORDERED: METH-38 PO (17:17)
[2018-04-14] MEDS ORDERED: OXYC5TAB95 PO (17:18)
[2018-04-14] MEDS ORDERED: SENN1TAB8 PO (17:19)
--- NOTE | 2018-04-14 19:08 | PATHOLOGY ---
[facility] Accession Number: [id number] . 01 Material submitted: . CERVICAL DISC . 01 Clinician provided ICD-10: M50.20 . 01 Clinical history: . Herniated cervical disc . 02 Diagnosis: Segments of fibrous and cartilaginous tissue and bone, cervical disc: - Degenerative changes of cartilaginous tissue. . (JPM/at;04/14/2018) QTA/04/14/2018 . 02 Comment: There is no evidence of an acute inflammatory process or malignancy. . 02 Electronically signed: . Leobardo Hayes MD, Pathologist NPI- [id number] . 01 Gross description: . Received in formalin labeled "Griffinforrester, Radha, cervical disc," are multiple segments of guzman rubbery and gritty tissue measuring 2.5 x 3.1 x 0.4 cm and aggregate dimensions, containing small fragments of possible bone. The tissue is filtered and submitted entirely in cassette A1, followi decalcification. (TSD; 04/13/2018) TOB/TOB . 02 Pathologist provided ICD-10: M50.30 . 02 CPT . 154945, [id number] Specimen Comment: A courtesy copy of this report has been sent to Specimen Comment: [phone]. Specimen Comment: Report sent to / DR MCCRACKEN Performed at: 01 [facility] [address], [place] [id number] MD Juanjose Richard MD Phone: [phone] Performed at: 02 [facility] [address] [place], [place] [id number] MD Leobardo Hayes MD Phone: [phone]
[2018-04-20] MEDS ORDERED: NON FORMULARY ITEM (Cholecalciferol (Vitamin D3) (Vitamin D) 50,000 UNIT) PO SCH (09:00)
--- NOTE | 2018-04-20 17:55 | OP ---
DATE OF SURGERY: 04/13/2018 SURGEON: Jovany Johnson MD. GREASE REFINING SUPERVISOR: None. PREOPERATIVE DIAGNOSES: Cervical stenosis with cervical radiculopathy, weakness , and cervical disk herniation. POSTOPERATIVE DIAGNOSES: Cervical stenosis with cervical radiculopathy, weakness, and cervical disk herniation. PROCEDURE: Anterior cervical discectomy and fusion of cervical 4-5 and cervical 5-6 utilizing Amendia anterior instrumentation and structural allograft interbody spacers at 4-5 and 5-6. ANESTHESIA: General. COMPLICATIONS: None intraprocedurally. INDICATIONS FOR THE PROCEDURE: The patient is a 52-year-old female who has developed upper extremity pain and paresthesia with weakness localized to herniated disks at cervical 4-5 and cervical 5-6. Please refer to the patient chart for additional detail. DESCRIPTION OF PROCEDURE: After informed consent was obtained, the patient was brought into the operating room. She was placed under general anesthesia. She was placed in the supine position. Neuromonitoring was instituted and baseline potentials were obtained. A shoulder bump was placed under the shoulders and the head was placed in the midline position in very slight extension. Fluoroscopy was utilized to localize an appropriate incision location. The anterior neck was then prepped and draped in usual sterile fashion. A horizontal incision centered over the region of cervical 4, 5 and 6 and was made with a scalpel. Blunt was carried out to undermine the soft tissues, and the platysma was sharply divided in the plane of the incision. A blunt plane was developed between the trachea and the esophagus medially and the carotid sheath laterally to approach the anterior cervical spine. The prevertebral fascia was taken down with a Kittner and the longus colli muscles were gently cauterized to serve as protection of the adjacent structures from the retractors. Self-retaining retractors were instituted and the appropriate levels were verified with fluoroscopy. Discectomy was performed at cervical 4-5 and cervical 5-6 at both locations by utilizing an 11 blade to incise the annulus and by removing disk material from both locations with a pituitary rongeur. The anterior osteophytes were taken down with a drill as well as a Kerrison rongeur and this bone was utilized as an autograft from the same incision with the structural allograft spacers as a fusion construct. Upon completion of both discectomies, the posterior longitudinal ligament was divided and removed with a Kerrison rongeur. Significant amount of herniated disk material was removed from the epidural space at both levels. Disk material was sent to pathology for permanent section. To further facilitate this discectomy at both locations, pins were instituted in the anterior vertebral bodies with attachment of distractors. Once discectomy was complete at both locations, the thecal sac was noted to be very well decompressed. This was verified with direct visualization as well as gentle palpation with a blunt micronerve hook. It was also noted that upon completion of the discectomy, motor potentials were significantly improved compared to baseline. Structural allograft spacers were instituted at cervical 4-5 and cervical 5-6. These were previously soaked in saline with the autograft powder, which was obtained from the osteophytes with the drill and captured with a Lukens trap and suction. Once the spacers were in place, the distraction pins were removed. Pristine hemostasis was achieved with some use of bipolar electrocautery as well as bone wax and FloSeal and cottonoids. The anterior cervical plate was instituted with 2 screws in each vertebral body at cervical 4 and cervical 5 and cervical 6. These were tightened with good purchase and locked according to the proposal editor's specifications. Fluoroscopy was utilized to verify the appropriate position of the grafts and instrumentation. The retractors were removed prior to the final imaging. Once this was complete, the wound was generously irrigated with antibiotic irrigation. Hemostasis was again achieved with FloSeal, cottonoids and some minimal use of bipolar cautery as well as generous irrigation. The platysma was reapproximated with 2-0 Vicryl in a simple interrupted fashion. Subcutaneous tissues were reapproximated with 2-0 Vicryl in interrupted inverted fashion. Skin was reapproximated with 4-0 Vicryl in a running subcuticular fashion. Mastisol and Steri-Strips were applied. The wound was dressed with Telfa and Tegaderm. At the end of the procedure, all needle and sponge counts were correct x 2. The patient was extubated in the operating room and taken to recovery in stable condition. Neuro monitoring potentials, particularly motor potentials, were significantly improved compared to baseline at the completion of the procedure. There were no intraprocedural complications apparent. JOVANY JOHNSON MD DR: PRINCESS/meenu JOB#: [id number] / [id number] KEISHA
== END 2018-04-14 18:50 | disposition home health service (06) ==
LOC: SURG 06:41 → 4 SOUTHEST 13:05
PROVIDERS: ADMIT Neurological Surgery; ATTEND Neurological Surgery
DX: M48.02 Spinal stenosis, cervical region (principal); M50.122 Cervical disc disorder at C5-C6 level with radiculopathy; M50.121 Cervical disc disorder at C4-C5 level with radiculopathy; N18.9 Chronic kidney disease, unspecified; J44.9 Chronic obstructive pulmonary disease, unspecified; K21.9 Gastro-esophageal reflux disease without esophagitis; I12.9 Hypertensive chronic kidney disease with stage 1 through stage 4 chronic kidney disease, or unspecified chronic kidney disease; M19.90 Unspecified osteoarthritis, unspecified site; I48.91 Unspecified atrial fibrillation
CPT/HCPCS: 20931; 22551; 22552; 22846; 76000; 88304; 88311; 94640; 96374; 96376; 97110; 97116; 97162; 97165; 97530; A7015; C1713; G0378; G0379; G8978; G8979; G8987; G8988; J0690; J1100; J2250; J2704; J2710; J3010; J3490; J7030; J7613; J7626; Q0163

== ENCOUNTER 2019-04-04 00:06 | Inpatient (IN) | payer MEDICARE, OTHER ==
[2019-04-03 23:45] VITALS: BP 85/66
[~2019-04-04] VITALS: Ht 152.4 cm; Wt 127.1 kg
[~2019-04-04 00:06] MED LIST changes: -AMLO10TA6 PO; +AMLO10TA8 PO; -BACITRACIN 50,000 UNIT in IV NORMAL SALINE 1000ML BAG 1,000 ML IRR ONE; -BUPIVAC MPF-EPI 0.5%-1:200000 30 ML VIAL. INJ ONE; +CYAN-25 SQ; -CYAN10005 SQ; -HYDR-2766 PO; +HYDR-2769 PO; +LOSA100T14 PO; -LOSA100T7 PO; +METH-38 PO; +MONT10TA49 PO; -MONT10TA9 PO; +OXYC5TAB4 PO; +SENN-161 PO
[2019-04-04 02:30] VITALS: BP 120/56
[2019-04-04] MEDS ORDERED: ESTR1TAB15 PO (04:28)
[2019-04-04] MEDS ORDERED: BREO ELLIPTA 21 EACH IH (04:28)
[2019-04-04] MEDS ORDERED: FURO40TA4 PO (04:28)
[2019-04-04] MEDS ORDERED: NYST15PO9 TP (04:28)
[2019-04-04] MEDS ORDERED: CHLO500T14 PO (04:28)
[2019-04-04] MEDS ORDERED: DULO60CA6 PO (04:28)
[2019-04-04] MEDS ORDERED: GABA600T7 PO (04:28)
[2019-04-04] MEDS ORDERED: OMEP40CA45 PO (04:28)
[2019-04-04] MEDS ORDERED: TIZA4CAP PO (04:28)
[2019-04-04] MEDS ORDERED: MORP-15 PO (04:28)
[2019-04-04] MEDS ORDERED: ALEN70TA6 PO (04:28)
[2019-04-04] MEDS ORDERED: NALO4SPR NS (04:28)
[2019-04-04] MEDS ORDERED: NYST100054 PO (04:28)
[2019-04-04] MEDS ORDERED: HYDR200T5 PO (04:28)
[2019-04-04] MEDS ORDERED: BUPR1PAT8 TP (04:28)
[2019-04-04] MEDS ORDERED: FERR325T14 PO (04:28)
[2019-04-04] MEDS ORDERED: CALC-98 PO (04:28)
[2019-04-04] MEDS ORDERED: HYDR50CA2 PO (04:28)
[2019-04-04] MEDS ORDERED: LEVO5TAB2 PO (04:28)
[2019-04-04] MEDS ORDERED: ALBUTEROL SULFATE 2.5 MG/3 ML NEBU. NEB PRN (04:45)
[2019-04-04 07:00] VITALS: BP 105/57
[2019-04-04 07:08] LABS: CALCIUM 7.9 mg/dL (8.5-10.1); GFR 14.1; POTASSIUM 3.8 mmol/L (3.5-5.1)
[2019-04-04 07:09] LABS: BASO % 0 % (0-3); EOS # 0.1 x10^3/uL (0.0-0.7); EOS % 1 % (0-3); HEMATOCRIT 32.7 % (36.0-47.0); HEMOGLOBIN 10.3 g/dL (12.0-15.5); LYMPH # 1.1 x10^3/uL (1.0-4.8); LYMPH % 9 % (24-48); MEAN CORPUSCULAR HEMOGLOBIN 28 pg (25-35); MEAN CORPUSCULAR HGB CONC 32 g/dL (31-37); MEAN CORPUSCULAR VOLUME 88 fL (79-100); MONO # 1.2 x10^3/uL (0.0-1.1); MONO % 10 % (0-9); NEUT # 9.3 x10^3/uL (1.8-7.7); NEUT % 79 % (31-73); PLATELET COUNT 233 x10^3/uL (140-400); RED BLOOD COUNT 3.72 x10^6/uL (3.50-5.40); RED CELL DISTRIBUTION WIDTH 18.1 % (11.5-14.5); WHITE BLOOD COUNT 11.8 x10^3/uL (4.0-11.0)
[2019-04-04] MEDS: IPRATRPIUM/ALBUTEROL 0.5/2.5MG 3 ML NEBU. NEB SCH ×4 (08:15→20:24)
[2019-04-04] MEDS ORDERED: INFLUENZA VAX SCREEN BY RX. MC PRN (09:00)
[2019-04-04] MEDS ORDERED: AZITHRMYCN 500MG IVPB FOR OMNI 250 ML IV SCH (09:00)
--- NOTE | 2019-04-04 09:32 | HP ---
ADMIT DATE: 04/04/2019 HISTORY OF PRESENT ILLNESS: The patient is a 53-year-old -Ira[place] female patient who was brought to the Emergency Room with altered mental status, generalized weakness. Her last known normal was 2 days ago. She states that she had nausea, vomiting, had difficulty keeping oral intake. She stated that she feels dehydrated. She takes chronic narcotic medication. On arrival, she was mildly hypotensive that has improved. She takes morphine twice a day as well as breakthrough pain medication. Did complain of left upper chest pain, shortness of breath. Denied any headache or visual changes. She was apparently investigated in the Emergency Room and has had a chest x-ray, which showed that there is a prominent infiltrate at the left hemothorax, other than some sparing of the apex. She also has some infiltrate in the right perihilar region and medial right lung base. No pneumothorax identified. The pericardial cardiac silhouette is somewhat poorly distinguished on the left due to infiltrate, may be degree of volume loss with left hemithorax. Because of altered mental status, the patient has had a CT scan of the head without contrast, which showed there is appearance of some loss of avendaño-white differentiation of the temporal lobes bilaterally. 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 Her other lab work showed a white cell count 17,200, hemoglobin 12, hematocrit 38, MCV 88, and platelet count 306,000. Her blood gases showed a pH of 7.33, a pCO2 of 41, pO2 of 70, and bicarbonate 22. An oxygen saturation of 93% on FiO2 of 28%. Her chemistry showed that her serum sodium was low at 126, potassium 4.2, chloride 90, bicarbonate 21, anion gap of 15, BUN 59, creatinine 4.8, estimated GFR was 11.4. Her glucose was 81, calcium was 8.4. Total bilirubin is normal. AST, ALT, alkaline phosphatase slightly elevated. Her troponin was less than 0.017. Total protein was 6.9, albumin 2.8. Urinalysis was essentially unremarkable, and her D-dimer was high at 1.4-6 mg/dL. Apparently, she was given 2 liters normal saline, was given acyclovir, Zithromax and ceftriaxone. We have consulted Infectious Disease specialist, the neurologist, as well as the air traffic controller center. PAST MEDICAL HISTORY: Significant for hypertension, atrial fibrillation, chronic kidney disease, morbid obesity, obstructive sleep apnea, bronchial asthma, osteoarthritis, fibromyalgia. She had an episode of malignant hyperthermia. She also had severe left neck pain radiating to the left upper extremity on previous admissions. PAST SURGICAL HISTORY: Significant for gastric bypass surgery in 2004. At that time, she lost about 135 pounds. She underwent a , laparoscopy, total abdominal hysterectomy, bilateral salpingo-oophorectomy, back surgery twice. She has also had left knee arthroscopic surgery. ALLERGIES: SHE IS ALLERGIC TO DARVOCET, LATEX, ADHESIVE TAPE, ALL ADHESIVES IN GENERAL. FAMILY HISTORY: She has 4 brothers and 4 sisters, all of her siblings have hypertension. Her father is alive at age of 88 and is known to have hypertension and diabetes. Mother is alive at age of 86 and is known to have hypertension. SOCIAL HISTORY: She is , lives on her own. She has 1 son who lives with her for 1 week and with his father 1 week. She never smoked, does not drink alcohol, or use any recreational drugs. 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 She is currently on disability. PHYSICAL EXAMINATION: GENERAL: On arrival to the hospital, she was somewhat lethargic, hypotensive, pale, but no jaundice, cyanosis, or thyromegaly. No jugular venous distention. No limb edema. VITAL SIGNS: Her heart rate was 75, blood pressure was 85/66, temperature was 97.9, respiratory rate was 22, and oxygen saturation was 91% on 3 liters of oxygen. HEAD, EYES, EARS, NOSE, AND THROAT: Showed normocephalic, atraumatic. NECK: Supple. HEART: Showed normal first and second heart sounds. No gallop or murmur. CHEST: Clear to auscultation. No crepitation or rhonchi. ABDOMEN: Distended, soft, nontender. NEUROLOGIC: She is lethargic, but arousable. All cranial nerves intact. EXTREMITIES: She moves extremities without difficulty. ADMISSION DIAGNOSES: 1. Community-acquired pneumonia. 2. 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 We will continue with IV ceftriaxone, continue with IV Zithromax. Continue with her BiPAP machine as she has morbid obesity with obstructive sleep apnea. We will continue with acyclovir as per Pharmacy to adjust the dose. We have already consulted the Infectious Disease, the air traffic controller center, as well as neurologist. DANNA COBB MD DR: PETERSON/meenu JOB#: [id number] / [id number]
--- NOTE | 2019-04-04 09:37 | NUR ---
PT, OT, ST request for orders Per RN, pt with possible cerebral edema. Please order PT, OT, and bedside swallow if physician agrees. Kathleen Mosqueda, SPT
--- NOTE | 2019-04-04 09:51 | PN ---
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 She was started on ceftriaxone, Zithromax, as well as acyclovir. She received 1 dose. Her creatinine is 4 and I did consult the Pharmacy to adjust the dose of acyclovir. I have consulted Infectious Disease, the neurologist, as well as the pathology technician. When I saw her this morning, she continued to be somewhat lethargic, but arousable. Continued to complain of shortness of breath, but denied any headache, nausea, or vomiting. OBJECTIVE: GENERAL: When I examined her, she was pale, but no jaundice, cyanosis, or thyromegaly. No jugular venous distention. No limb edema. VITAL SIGNS: Her heart rate was 75, blood pressure was 105/57, temperature was 97.4, respiratory rate was 20, and oxygen saturation was 100%. HEAD, EYES, EARS, NOSE, AND THROAT: Showed normocephalic, atraumatic. NECK: Supple. HEART: Showed normal first and second heart sounds. No gallop or murmur. CHEST: Shows central trachea, equal bilateral chest expansion, air entry, vesicular sounds. I could not really appreciate any crepitation or rhonchi. ABDOMEN: Distended, soft, nontender. NEUROLOGIC: She is awake, somewhat lethargic, but arousable. All cranial nerves are intact. He moves extremities without difficulty. LABORATORY DATA: Her lab work this morning showed a white cell count of 11,800, hemoglobin 10, hematocrit 32, MCV 88, and platelet count 233,000. Serum sodium is up from 126 to 130, potassium 3.8, chloride 96, bicarbonate 23, anion gap of 11, BUN 56, creatinine 4, estimated GFR was 49 mL per minute. Her glucose was 80, calcium was 7.9. Beta natriuretic peptide was 1535. ASSESSMENT: The patient was admitted with community-acquired pneumonia, for which she continued to be on IV Zithromax and ceftriaxone; questionable herpes simplex encephalitis and was continued to have IV acyclovir. I will arrange for her to have an MRI. I did consult the neurologist, pathology technician, as well as Infectious Disease and we will decide the further management accordingly. DANNA COBB MD DR: Makayla JOB#: [id number] / [id number]
--- NOTE | 2019-04-04 10:26 | RAD ---
PORTABLE CHEST 1V History: Pneumonia Comparison: April 05, 2018. Findings: Multifocal patchy pulmonary opacities within the left midlung and bilateral lower lungs. No pleural effusion. Normal heart size. Lower cervical postoperative changes. Impression: 1. Multifocal pulmonary opacities, may represent pneumonia given history. Recommend follow-up to ensure resolution. Electronically signed by: Servando Frazier DO (04/04/2019 10:23 AM) [id number]
[2019-04-04] MEDS: cefTRIAXone IV Push 1 GM VIAL. IVP SCH (10:32)
[2019-04-04] MEDS: AZITHROMYCIN 500 MG in IV NORMAL SALINE 250ML 250 ML IV SCH (10:34)
[2019-04-04 11:00] VITALS: BP 126/71
[2019-04-04 11:13] LABS: AMPHETAMINE/METHAMPHETAMINE NEG (NEG); BARBITURATES NEG (NEG); BENZODIAZEPINES NEG (NEG); CANNABINOIDS NEG (NEG); COCAINE NEG (NEG); METHADONE NEG (NEG); OPIATES POS (NEG); PHENCYCLIDINE NEG (NEG)
--- NOTE | 2019-04-04 11:25 | PDOC2 ---
CONSULT Date of Consult Date of Consult DATE: 04/04/19 TIME: 10:56 Reason for Consult Reason for Consult: Acute on chronic renal failure History of Present Illness Reason for Visit: Pt is a 53-year-old -Monegasque female patient who was brought to the Emergency Room with altered mental status,generalized weakness. She had nausea, vomiting, had difficulty keeping oral intake She is on chronic narcotics for pain- morphine twice a day as well for breakthrough pain medication. . On arrival, she was mildly hypotensive that has improved. Did complain of left upper chest pain, shortness of breath. Chest x-ray in ER prominent infiltrate at the left hemothorax, infiltrate in the right perihilar region and medial right lung base. status. CT head done as well, based on findings of CT head and CxR as she was given a dose of acyclovir , Abx and was transferred to [facility] to consult the Infectious Disease, neurologist. She states her mouth is feeling dry. Denies any urinary complaints . No CP or SOB. Denies any NSAID's or any OTC supplements She is on lasix 20 mg QD and Losartan at home Lab work - sodium 126, BUN 59, creatinine 4.8. Current Medications Current Medications Current Medications Info (FLU VACCINE SCREEN per RX) 1 each PRN DAILY PRN UNABLE TO RESPOND; Start 04/04/19 at 09:00 Albuterol/ Ipratropium (Duoneb) 3 ml RTQID NEB Last administered on 04/04/19at 08:15; Start 04/04/19 at 08:00 Albuterol Sulfate (Ventolin Neb Soln) 2.5 mg PRN Q4HRS PRN NEB SHORTNESS OF BREATH; Start 04/04/19 at 04:45 Ceftriaxone Sodium (Rocephin) 1 gm Q24H IVP Last administered on 04/04/19at 10:32; Start 04/04/19 at 10:00 Azithromycin 250 ml @ 250 mls/hr DAILY IV ; Start 04/04/19 at 09:00; Status UNV Azithromycin 500 mg/Sodium Chloride 250 ml @ 250 mls/hr Q24H IV Last administered on 04/04/19at 10:34; Start 04/04/19 at 10:00 Acyclovir Sodium 500 mg/Dextrose 110 ml @ 110 mls/hr Q24H IV ; Start 04/04/19 at 12:00 Active Scripts Active Reported Butrans (Buprenorphine) 1 Each Patch.tdwk 1 Patch TP WEEKLY Narcan (Naloxone HCl) 4 Mg [place] 4 Mg NS PRN PRN Breo Ellipta 200-25 Mcg INH (Fluticasone/Vilanterol) 1 Each Blst.w.dev 1 Puff IH DAILY Tizanidine Hcl 4 Mg Capsule 4 Mg PO TID PRN Cymbalta (Duloxetine Hcl) 60 Mg Capsule.dr 1 Cap PO DAILY Furosemide 40 Mg Tablet 1 Tab PO DAILY Levocetirizine Dihydrochloride 5 Mg Tablet 1 Tab PO QHS Hydroxychloroquine Sulfate 200 Mg Tablet 200 Mg PO DAILY Omeprazole 40 Mg Capsule.dr 1 Cap PO DAILY Chlorzoxazone 500 Mg Tablet 500 Mg PO PRN TID PRN Estradiol 1 Mg Tablet 1 Tab PO DAILY Hydroxyzine Pamoate 50 Mg Capsule 50 Mg PO DAILY Calcium + Vitamin D Tablet (Calcium Carbonate/Vitamin D3) 1 Each Tablet 1 Each PO DAILY Alendronate Sodium 70 Mg Tablet 1 Tab PO WEEKLY Ferrous Sulfate 325 Mg Tablet 1 Tab PO DAILY Nystatin 100,000 Unit/1 Ml Oral.susp 5 Ml PO QID Nystatin 15 Gm Powder 1 Pat TP QID PRN Morphine Sulfate Er (Morphine Sulfate) 15 Mg Tablet.er 1 Tab PO BID Gabapentin 600 Mg Tablet 600 Mg PO BID Senna-Docusate Sodium Tablet (Sennosides/Docusate Sodium) 1 Each Tablet 1 Each PO BID Proventil Hfa Inhaler (Albuterol Sulfate) 6.7 Gm Hfa.aer.ad 1 Puff IH PRN Q4HRS PRN Aspir-Low (Aspirin) 81 Mg Tablet. 81 Mg PO Losartan Potassium 100 Mg Tablet 100 Mg PO DAILY Amlodipine Besylate 10 Mg Tablet 10 Mg PO DAILY Montelukast Sodium Tablet (Montelukast Sodium) 10 Mg Tablet 10 Mg PO HS Vitamin D (Cholecalciferol (Vitamin D3)) 5,000 Unit Tablet 50,000 Unit PO WEEKLY Sotalol (Sotalol Hcl) 80 Mg Tablet 120 Mg PO BID Allergies Allergies: Coded Allergies: acetaminophen (Verified Allergy, Intermediate, RASH, FEVER, 04/05/18) adhesive tape (Verified Allergy, Intermediate, 04/04/19) latex (Verified Allergy, Intermediate, 04/05/18) propoxyphene (Verified Allergy, Intermediate, RASH, FEVER, 04/05/18) baclofen (Verified Adverse Reaction, Severe, HALLUCINATIONS, 04/05/18) ROS Review of System Per HPI Physical Exam Physical Exam GENERAL: NAD HEEN-O2 by NC NECK: Supple. LUNGS CTA, decreased at bases HEART: RRR ABDOMEN: Obese, Non tender NEUROLOGIC: Alert and oriented EXTREMITIES: Edema 1-2+ since last week per patient - Zepeda + , No CVA or SP tenderness SKIN- No rash Vital Signs Vital Signs Date Time Temp Pulse Resp B/P (MAP) Pulse Ox O2 Delivery O2 Flow Rate FiO2 04/04/19 08:16 98 BiPAP/CPAP 04/04/19 07:00 97.4 75 20 105/57 (73) 30.0 97.4 Assessment & Plan NAY - Vasomotor/ ATN 2/2 Dehydration Hx of Vomiting Renal function improving Cr 4.8--> 4.0 E-Lytes and acid base stable, Currently No Indication fro Emergent HD Supportive care,IVF, UA , Strict I/O, Monitor CKD stage 3- baseline in 2017 (last seen in our office ) 1.1 HypoNa- Improving 126--> 130 Hypertension On losartan and Lasix per Home med list Hypotensive at initial presentation Hold both Lasix and Losartan Abnormal CT scan head - Neurology following DW Pt and RN at bedside Labs Labs Laboratory Tests Test 04/04/19 06:35 White Blood Count 11.8 x10^3/uL (4.0-11.0) Red Blood Count 3.72 x10^6/uL (3.50-5.40) Hemoglobin 10.3 g/dL (12.0-15.5) Hematocrit 32.7 % (36.0-47.0) Mean Corpuscular Volume 88 fL (79-100) Mean Corpuscular Hemoglobin 28 pg (25-35) Mean Corpuscular Hemoglobin Concent 32 g/dL (31-37) Red Cell Distribution Width 18.1 % (11.5-14.5) Platelet Count 233 x10^3/uL (140-400) Neutrophils (%) (Auto) 79 % (31-73) Lymphocytes (%) (Auto) 9 % (24-48) Monocytes (%) (Auto) 10 % (0-9) Eosinophils (%) (Auto) 1 % (0-3) Basophils (%) (Auto) 0 % (0-3) Neutrophils # (Auto) 9.3 x10^3/uL (1.8-7.7) Lymphocytes # (Auto) 1.1 x10^3/uL (1.0-4.8) Monocytes # (Auto) 1.2 x10^3/uL (0.0-1.1) Eosinophils # (Auto) 0.1 x10^3/uL (0.0-0.7) Basophils # (Auto) 0.0 x10^3/uL (0.0-0.2) Sodium Level 130 mmol/L (136-145) Potassium Level 3.8 mmol/L (3.5-5.1) Chloride Level 96 mmol/L (98-107) Carbon Dioxide Level 23 mmol/L (21-32) Anion Gap 11 (6-14) Blood Urea Nitrogen 56 mg/dL (7-20) Creatinine 4.0 mg/dL (0.6-1.0) Estimated GFR (Cockcroft-Gault) 14.1 Glucose Level 80 mg/dL (70-99) Calcium Level 7.9 mg/dL (8.5-10.1) OV-Lkm-E-Type Natriuretic Peptide 1535 pg/mL (0-124) Laboratory Tests Test 04/04/19 06:35 White Blood Count 11.8 x10^3/uL (4.0-11.0) Red Blood Count 3.72 x10^6/uL (3.50-5.40) Hemoglobin 10.3 g/dL (12.0-15.5) Hematocrit 32.7 % (36.0-47.0) Mean Corpuscular Volume 88 fL (79-100) Mean Corpuscular Hemoglobin 28 pg (25-35) Mean Corpuscular Hemoglobin Concent 32 g/dL (31-37) Red Cell Distribution Width 18.1 % (11.5-14.5) Platelet Count 233 x10^3/uL (140-400) Neutrophils (%) (Auto) 79 % (31-73) Lymphocytes (%) (Auto) 9 % (24-48) Monocytes (%) (Auto) 10 % (0-9) Eosinophils (%) (Auto) 1 % (0-3) Basophils (%) (Auto) 0 % (0-3) Neutrophils # (Auto) 9.3 x10^3/uL (1.8-7.7) Lymphocytes # (Auto) 1.1 x10^3/uL (1.0-4.8) Monocytes # (Auto) 1.2 x10^3/uL (0.0-1.1) Eosinophils # (Auto) 0.1 x10^3/uL (0.0-0.7) Basophils # (Auto) 0.0 x10^3/uL (0.0-0.2) Sodium Level 130 mmol/L (136-145) Potassium Level 3.8 mmol/L (3.5-5.1) Chloride Level 96 mmol/L (98-107) Carbon Dioxide Level 23 mmol/L (21-32) Anion Gap 11 (6-14) Blood Urea Nitrogen 56 mg/dL (7-20) Creatinine 4.0 mg/dL (0.6-1.0) Estimated GFR (Cockcroft-Gault) 14.1 Glucose Level 80 mg/dL (70-99) Calcium Level 7.9 mg/dL (8.5-10.1) TB-Hcg-D-Type Natriuretic Peptide 1535 pg/mL (0-124) Review All relevant outside records, renal labs, imaging studies, telemetry/EKG's were reviewed. Images Images 1. Multifocal pulmonary opacities, may represent pneumonia given history. Recommend follow-up to ensure resolution. CT head -- CT scan of the head without contrast, which showed there is appearance of some loss of avendaño-white differentiation of the temporal lobes bilaterally. Scanning may be due to underlying edema, sequelae of encephalitis including herpes encephalitis would be in the differential consideration if there is a true finding; sequelae of ischemia considered atypical given the pattern of the involvement SAGE LENZ MD Apr 04, 2019 11:25
[2019-04-04] MEDS ORDERED: ACYCLOVIR SODIUM 500 MG in IV DEXTROSE 5% 100ML 100 ML IV SCH (12:00)
--- NOTE | 2019-04-04 12:29 | CONS ---
DATE OF CONSULTATION: 04/04/2019 PULMONARY CONSULTATION ATTENDING PHYSICIAN: Dr. Garrido. REASON FOR CONSULTATION: Hypoxia, abnormal chest x-ray. HISTORY OF PRESENT ILLNESS: The patient is a 53-year-old female with a BMI of 58 and is morbidly obese. She has history of sleep apnea for which she is on CPAP. She was brought into the Emergency Room with altered mental status and generalized weakness. She has some nausea. She said she had some pain in the left upper arm. She felt like somebody bit her. She has put on 25 pounds in the last 3-4 weeks. She has lower extremity edema. She has increased shortness of breath. She said she did not have a cough, no fever. No chest pain. No dysuria, no focal weakness. I reviewed the patient's chest x-ray, which showed multifocal interstitial infiltrates in the left mid lung as well as in the lower lobes. I have been asked to see her for further evaluation. PAST MEDICAL HISTORY: Significant for history of hypertension, atrial fibrillation, history of CKD, history of morbid obesity, history of obstructive sleep apnea, history of asthma, osteoarthritis, fibromyalgia, history of malignant hyperthermia. SURGERIES: Gastric bypass surgery in 2004, lost 135 pounds, but she has gained 25 pounds in the last 3 weeks. History of and other surgeries as per Dr. Garrido's note. ALLERGIES: ACETAMINOPHEN, BACLOFEN, LATEX, and PROPOXYPHENE. MEDICATIONS: Reviewed as listed in the MRAD including azithromycin and DuoNebs and acyclovir. REVIEW OF SYSTEMS: Twelve-point system obtained. Pertinent positives discussed in my history of present illness, otherwise noncontributory. All systems that were negative were reviewed as well. SOCIAL HISTORY: No recent tobacco use. No recreational drug use. PHYSICAL EXAMINATION: VITAL SIGNS: Reviewed, afebrile, blood pressure 126/71, pulse ox 97% on 3 liters. NECK: Supple. LUNGS: With diminished breath sounds. CARDIOVASCULAR: With a regular rate and rhythm. ABDOMEN: Soft, markedly obese. EXTREMITIES: With pitting edema bilaterally. LABORATORY DATA: Reviewed. White cell count 11.8, hemoglobin 10.3, platelets are 233. BUN 56 and a creatinine of 4.0. ProBNP is 1535. TSH 0.5. IMPRESSION: 1. Acute hypoxic respiratory failure secondary to bilateral infiltrates, etiology could be related to right heart failure versus possible pneumonia. 2. Abnormal chest x-ray with bilateral infiltrates. Clinically, she lacks symptoms of pneumonia. However, we will obtain procalcitonin level. It is certainly possible that it could be right heart failure from her underlying obesity, hypoventilation syndrome. We will do a noncontrast CT chest for further evaluation. 3. No significant tobacco history. 4. Chronic kidney disease could be an acute component. 5. 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 ID has been consulted. 6. Underlying obstructive sleep apnea, on CPAP with good compliance at home. RECOMMENDATIONS: 1. Continue with present oxygen. 2. Antibiotics per Infectious Disease. 3. DuoNeb. 4. Noncontrast CT chest for further evaluation of her parenchymal infiltrates, rule out pneumonia versus CHF. 5. Obtain echocardiogram. 6. DVT prophylaxis. 7. Further recommendations to follow. Discussed with RN. CHANTAL CABALLERO MD DR: LOUIS/meenu JOB#: [id number] / [id number]
--- NOTE | 2019-04-04 12:44 | NUR ---
SS following for discharge planning. SS reviewed pt chart. Pt is from home and is currently requiring oxygen. SS will continue to follow for discharge planning.
--- NOTE | 2019-04-04 13:51 | EEG ---
DATE OF SERVICE: 04/04/2019 EEG NUMBER: [id number]. OBJECTIVE: This is a 53-year-old -[place] female patient with history of mental status changes and confusion for [address] showed bilateral temporal edema. EEG was requested to help rule out seizure. METHODS: Twenty electrodes were applied according to the international 10-20 electrode placement system. EKG monitoring, hyperventilation, intermittent photic stimulation, monopolar and bipolar montages are routinely utilized. The record was obtained on a digital system with video monitoring. FINDINGS: 1. Background: The patient was recorded in the awake, drowsy, and sleep states. The overall background amplitude is 10-25 microvolts. A posterior dominant rhythm of 8 Hz is observed. 2. Abnormalities: No specific epileptiform discharge or electrographic seizure is seen. No diffuse slowing. 3. Activation: Hyperventilation was performed with fair efforts and normal response. Intermittent photic stimulation was performed with photic driving. IMPRESSION: This EEG is within the broad normal limits for the awake, drowsy, and sleep states. No focal, lateralizing, specific epileptiform discharge or electrographic seizure is seen. JO CORNEJO MD DR: AMMON/meenu JOB#: [id number] / [id number]
--- NOTE | 2019-04-04 14:02 | PDOC ---
Infectious Disease Note Vital Sign Vital Signs Vital Signs Date Time Temp Pulse Resp B/P (MAP) Pulse Ox O2 Delivery O2 Flow Rate FiO2 04/04/19 11:00 97.7 76 16 126/71 (89) 97 Nasal Cannula 3.0 97.7 Labs Lab Laboratory Tests Test 04/04/19 06:35 04/04/19 10:50 White Blood Count 11.8 x10^3/uL (4.0-11.0) Red Blood Count 3.72 x10^6/uL (3.50-5.40) Hemoglobin 10.3 g/dL (12.0-15.5) Hematocrit 32.7 % (36.0-47.0) Mean Corpuscular Volume 88 fL (79-100) Mean Corpuscular Hemoglobin 28 pg (25-35) Mean Corpuscular Hemoglobin Concent 32 g/dL (31-37) Red Cell Distribution Width 18.1 % (11.5-14.5) Platelet Count 233 x10^3/uL (140-400) Neutrophils (%) (Auto) 79 % (31-73) Lymphocytes (%) (Auto) 9 % (24-48) Monocytes (%) (Auto) 10 % (0-9) Eosinophils (%) (Auto) 1 % (0-3) Basophils (%) (Auto) 0 % (0-3) Neutrophils # (Auto) 9.3 x10^3/uL (1.8-7.7) Lymphocytes # (Auto) 1.1 x10^3/uL (1.0-4.8) Monocytes # (Auto) 1.2 x10^3/uL (0.0-1.1) Eosinophils # (Auto) 0.1 x10^3/uL (0.0-0.7) Basophils # (Auto) 0.0 x10^3/uL (0.0-0.2) Sodium Level 130 mmol/L (136-145) Potassium Level 3.8 mmol/L (3.5-5.1) Chloride Level 96 mmol/L (98-107) Carbon Dioxide Level 23 mmol/L (21-32) Anion Gap 11 (6-14) Blood Urea Nitrogen 56 mg/dL (7-20) Creatinine 4.0 mg/dL (0.6-1.0) Estimated GFR (Cockcroft-Gault) 14.1 Glucose Level 80 mg/dL (70-99) Calcium Level 7.9 mg/dL (8.5-10.1) EW-Klt-S-Type Natriuretic Peptide 1535 pg/mL (0-124) Thyroid Stimulating Hormone (TSH) 0.560 uIU/mL (0.358-3.74) Urine Opiates Screen Pos (NEG) Urine Methadone Screen Neg (NEG) Urine Barbiturates Neg (NEG) Urine Phencyclidine Screen Neg (NEG) Urine Amphetamine/Methamphetamine Neg (NEG) Urine Benzodiazepines Screen Neg (NEG) Urine Cocaine Screen Neg (NEG) Urine Cannabinoids Screen Neg (NEG) Urine Ethyl Alcohol Neg (NEG) Objective Assessment Acute encephalopathy and abnormal CT head concerning for herpetic encephalitis Multifocal pulmonary infiltrates, pneumonia cannot be ruled out. CT chest pending Leukocytosis - improved Oral ulcer NAY on CKD Hyponatremia (NA 126) Involuntary jerking. 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 The chart was reviewed. The case was discussed. Agree with the plan of care. Attending Co-Sign Attending Co-Sign The patient was seen and interviewed as well as examined at the bedside. The chart was reviewed. The case was discussed. Agree with the plan of care. CATARINA RAZA APRN Apr 04, 2019 14:02 ORLY LINDSEY MD Apr 04, 2019 15:50
[2019-04-04] MEDS: IV NORMAL SALINE 1000ML BAG 1,000 ML IV SCH ×2 (14:44→22:06)
[2019-04-04 15:00] VITALS: BP 97/71
--- NOTE | 2019-04-04 15:43 | RAD ---
EXAM: Left upper extremity venous Doppler sonogram. HISTORY: Pain and swelling. TECHNIQUE: Chaney scale and color Doppler sonographic evaluation of the left upper extremity veins with spectral waveform analysis was performed. FINDINGS: There is normal color flow, normal compressibility and there are normal spectral waveforms in the left upper extremity veins. IMPRESSION: No Doppler evidence of left upper extremity deep venous thrombosis. Electronically signed by: Cait Weiner MD (04/04/2019 3:40 PM) [place] [id number]
--- NOTE | 2019-04-04 15:50 | PDOC2 ---
NEUROLOGY CONSULT Date of Admission Date of Admission DATE: 04/04/19 TIME: 15:35 Reason for Consult Reason for Consult: IMPRESSION: Abnormal HCT finding. Confusion. Generalized weakness Metabolic encephalopathy. AFib. Pneumonia? HTN. Renal failure. Morbid obesity. RECOMMENDATIONS/PLAN: Brain MRI wo contrast. Due to renal failure, contrast not given. Lab: see orders. LP maybe considered pending MRI findings. Treat medical diseases. EEG on 04/04/19: Within normal. HISTORY OF THE PRESENT ILLNESS: This is a 53-y-old AA female patient with above medical diseases has been having mental status changes, confusion and generalized weakness for about 1 week. She was seen in [facility] ER and her HCT was reported questionable bilateral temporal lobe edema, so she was transferred to [facility] for further evaluation. Patient denied recent acute illness. No focalized sensory or motor deficits except generalized weakness. PAST MEDICAL HISTORY: Hypertension, atrial fibrillation, history of CKD, history of morbid obesity, history of obstructive sleep apnea, history of asthma, osteoarthritis, fibromyalgia, history of malignant hyperthermia. PAST SURGERY HISTORY: Gastric bypass surgery in 2004, lost 135 pounds, but she has gained 25 pounds in the last 3 weeks. . ALLERGIES: ACETAMINOPHEN, BACLOFEN, LATEX, and PROPOXYPHENE. MEDICATIONS: Refer to [facility] REVIEW OF SYSTEMS: Constitutional: Morbid obesity.. Head: No traumatic brain or head injury. Skin: No edema, or rash. Ear: No infection, tinnitus. Eyes: No vision loss or color blindness. Nose: No bleeding or purulent discharges. Hearing: No hearing decrease. Neck: No injury. Breast: No history of cancer, masses,or discharges. Cardiac: AFib, HTN. Pulmonary: No COPD. GI: No GI ulcer, GI bleeding. Urinary/genital: UTI. Endocrinologic: Diabetes Mellitus. Skeletomuscular: Generalized weakness. Neurological: see HP. Psychiatric: Denies drug use/abuse. Otherwise, not [id number] review of systems. PHYSICAL EXAMINATION: General appearance is in subacute distress. HEENT: Normocephalic and nontraumatic. Eyes, nose, ears, and throat are unremarkable. Neck is supple. No lymphadenopathy. No crepitus. Cardiovascular: S1, S2, regular rate and rhythm. Pulmonary: decreased to auscultation bilaterally. Abdomen: Bowel sounds are positive. Extremities: No rash, lesions, or edema. No restriction of range of motion NEUROLOGICAL EXAMINATION: Awake. Oriented to time, place and person. PERRL. EOMI. CN: no focal findings. Muscle tone: within normal. Muscle strength: 4 due to obesity. DTR: 0-1 due to obesity. Plantar reflex: Flexor response bilaterally Gait: not examined in bed. Sensory exam: no abnormal findings. No cerebellar signs elicited. F-T-N test accurate. Current Medications Current Medications Current Medications Info (FLU VACCINE SCREEN per RX) 1 each PRN DAILY PRN UNABLE TO RESPOND; Start 04/04/19 at 09:00; Status Cancel Albuterol/ Ipratropium (Duoneb) 3 ml RTQID NEB Last administered on 04/04/19at 08:15; Start 04/04/19 at 08:00 Albuterol Sulfate (Ventolin Neb Soln) 2.5 mg PRN Q4HRS PRN NEB SHORTNESS OF BREATH; Start 04/04/19 at 04:45 Ceftriaxone Sodium (Rocephin) 1 gm Q24H IVP Last administered on 04/04/19at 10:32; Start 04/04/19 at 10:00 Azithromycin 250 ml @ 250 mls/hr DAILY IV ; Start 04/04/19 at 09:00; Status UNV Azithromycin 500 mg/Sodium Chloride 250 ml @ 250 mls/hr Q24H IV Last administered on 04/04/19at 10:34; Start 04/04/19 at 10:00 Acyclovir Sodium 500 mg/Dextrose 110 ml @ 110 mls/hr Q24H IV Last administered on 04/04/19at 14:39; Start 04/04/19 at 12:00 Sodium Chloride 1,000 ml @ 100 mls/hr Q10H IV Last administered on 04/04/19at 14:44; Start 04/04/19 at 11:30 Influenza Virus Vaccine Quadrival (Afluria Quad 2019-20 (3yr Up) Syringe) 0.5 ml ONCE ONCE VAX IM ; Start 04/05/19 at 09:00; Stop 04/05/19 at 09:01 Lactobacillus Rhamnosus (Culturelle) 1 cap BID PO ; Start 04/04/19 at 21:00 Active Scripts Active Reported Butrans (Buprenorphine) 1 Each Patch.tdwk 1 Patch TP WEEKLY Narcan (Naloxone HCl) 4 Mg [place]and 4 Mg NS PRN PRN Breo Ellipta 200-25 Mcg INH (Fluticasone/Vilanterol) 1 Each Blst.w.dev 1 Puff IH DAILY Tizanidine Hcl 4 Mg Capsule 4 Mg PO TID PRN Cymbalta (Duloxetine Hcl) 60 Mg Capsule.dr 1 Cap PO DAILY Furosemide 40 Mg Tablet 1 Tab PO DAILY Levocetirizine Dihydrochloride 5 Mg Tablet 1 Tab PO QHS Hydroxychloroquine Sulfate 200 Mg Tablet 200 Mg PO DAILY Omeprazole 40 Mg Capsule.dr 1 Cap PO DAILY Chlorzoxazone 500 Mg Tablet 500 Mg PO PRN TID PRN Estradiol 1 Mg Tablet 1 Tab PO DAILY Hydroxyzine Pamoate 50 Mg Capsule 50 Mg PO DAILY Calcium + Vitamin D Tablet (Calcium Carbonate/Vitamin D3) 1 Each Tablet 1 Each PO DAILY Alendronate Sodium 70 Mg Tablet 1 Tab PO WEEKLY Ferrous Sulfate 325 Mg Tablet 1 Tab PO DAILY Nystatin 100,000 Unit/1 Ml Oral.susp 5 Ml PO QID Nystatin 15 Gm Powder 1 Pat TP QID PRN Morphine Sulfate Er (Morphine Sulfate) 15 Mg Tablet.er 1 Tab PO BID Gabapentin 600 Mg Tablet 600 Mg PO BID Senna-Docusate Sodium Tablet (Sennosides/Docusate Sodium) 1 Each Tablet 1 Each PO BID Proventil Hfa Inhaler (Albuterol Sulfate) 6.7 Gm Hfa.aer.ad 1 Puff IH PRN Q4HRS PRN Aspir-Low (Aspirin) 81 Mg Tablet. 81 Mg PO Losartan Potassium 100 Mg Tablet 100 Mg PO DAILY Amlodipine Besylate 10 Mg Tablet 10 Mg PO DAILY Montelukast Sodium Tablet (Montelukast Sodium) 10 Mg Tablet 10 Mg PO HS Vitamin D (Cholecalciferol (Vitamin D3)) 5,000 Unit Tablet 50,000 Unit PO WEEKLY Sotalol (Sotalol Hcl) 80 Mg Tablet 120 Mg PO BID Allergies Allergies: Allergies Coded Allergies Type Severity Reaction Last Updated Verified acetaminophen Allergy Intermediate RASH, FEVER 04/05/18 Yes adhesive tape Allergy Intermediate 04/04/19 Yes latex Allergy Intermediate 04/05/18 Yes propoxyphene Allergy Intermediate RASH, FEVER 04/05/18 Yes baclofen Adverse Reaction Severe HALLUCINATIONS 04/05/18 Yes ROS Review of System The patient denies any associated fevers, chills, headache, ear pain, rhinorrhea, sore throat, stiff neck, productive cough, chest pain, shortness of breath, back or flank pain, abdominal pain, nausea, vomiting, diarrhea, constipation, dysuria, rash, numbness, weakness, tingling, incontinence, difficulty ambulating, or diaphoresis. Physical Exam Physical Exam General: Well developed, well nourished, no acute distress, well appearing HEENT: Pupils equally round and reactive to light, EOMI, no discharge, normal conjunctiva Neck: Supple, no nuchal rigidity, no JVD, trachea midline, no tenderness Cardiac: RRR, no murmurs, no gallops, no rubs Chest/Lungs: CTAB, no wheeze, no rhonchi, no crackles Abdomen: soft, non-distended, no guarding, no peritoneal signs, non-tender Back: No tenderness Extremities: no edema, pulses intact, non-tender,capillary refill <3 sec bilateral upper and lower extremities, Neuro: Alert and oriented x 4, no focal deficits, normal speech Vitals Vitals: Vital Signs Date Time Temp Pulse Resp B/P (MAP) Pulse Ox O2 Delivery O2 Flow Rate FiO2 04/04/19 15:00 97.8 81 18 97/71 (80) 94 Nasal Cannula 3.0 97.8 Labs Labs Laboratory Tests Test 04/04/19 06:35 04/04/19 10:50 White Blood Count 11.8 x10^3/uL (4.0-11.0) Red Blood Count 3.72 x10^6/uL (3.50-5.40) Hemoglobin 10.3 g/dL (12.0-15.5) Hematocrit 32.7 % (36.0-47.0) Mean Corpuscular Volume 88 fL (79-100) Mean Corpuscular Hemoglobin 28 pg (25-35) Mean Corpuscular Hemoglobin Concent 32 g/dL (31-37) Red Cell Distribution Width 18.1 % (11.5-14.5) Platelet Count 233 x10^3/uL (140-400) Neutrophils (%) (Auto) 79 % (31-73) Lymphocytes (%) (Auto) 9 % (24-48) Monocytes (%) (Auto) 10 % (0-9) Eosinophils (%) (Auto) 1 % (0-3) Basophils (%) (Auto) 0 % (0-3) Neutrophils # (Auto) 9.3 x10^3/uL (1.8-7.7) Lymphocytes # (Auto) 1.1 x10^3/uL (1.0-4.8) Monocytes # (Auto) 1.2 x10^3/uL (0.0-1.1) Eosinophils # (Auto) 0.1 x10^3/uL (0.0-0.7) Basophils # (Auto) 0.0 x10^3/uL (0.0-0.2) Sodium Level 130 mmol/L (136-145) Potassium Level 3.8 mmol/L (3.5-5.1) Chloride Level 96 mmol/L (98-107) Carbon Dioxide Level 23 mmol/L (21-32) Anion Gap 11 (6-14) Blood Urea Nitrogen 56 mg/dL (7-20) Creatinine 4.0 mg/dL (0.6-1.0) Estimated GFR (Cockcroft-Gault) 14.1 Glucose Level 80 mg/dL (70-99) Calcium Level 7.9 mg/dL (8.5-10.1) GX-Kur-L-Type Natriuretic Peptide 1535 pg/mL (0-124) Thyroid Stimulating Hormone (TSH) 0.560 uIU/mL (0.358-3.74) Urine Opiates Screen Pos (NEG) Urine Methadone Screen Neg (NEG) Urine Barbiturates Neg (NEG) Urine Phencyclidine Screen Neg (NEG) Urine Amphetamine/Methamphetamine Neg (NEG) Urine Benzodiazepines Screen Neg (NEG) Urine Cocaine Screen Neg (NEG) Urine Cannabinoids Screen Neg (NEG) Urine Ethyl Alcohol Neg (NEG) Laboratory Tests Test 04/04/19 06:35 04/04/19 10:50 White Blood Count 11.8 x10^3/uL (4.0-11.0) Red Blood Count 3.72 x10^6/uL (3.50-5.40) Hemoglobin 10.3 g/dL (12.0-15.5) Hematocrit 32.7 % (36.0-47.0) Mean Corpuscular Volume 88 fL (79-100) Mean Corpuscular Hemoglobin 28 pg (25-35) Mean Corpuscular Hemoglobin Concent 32 g/dL (31-37) Red Cell Distribution Width 18.1 % (11.5-14.5) Platelet Count 233 x10^3/uL (140-400) Neutrophils (%) (Auto) 79 % (31-73) Lymphocytes (%) (Auto) 9 % (24-48) Monocytes (%) (Auto) 10 % (0-9) Eosinophils (%) (Auto) 1 % (0-3) Basophils (%) (Auto) 0 % (0-3) Neutrophils # (Auto) 9.3 x10^3/uL (1.8-7.7) Lymphocytes # (Auto) 1.1 x10^3/uL (1.0-4.8) Monocytes # (Auto) 1.2 x10^3/uL (0.0-1.1) Eosinophils # (Auto) 0.1 x10^3/uL (0.0-0.7) Basophils # (Auto) 0.0 x10^3/uL (0.0-0.2) Sodium Level 130 mmol/L (136-145) Potassium Level 3.8 mmol/L (3.5-5.1) Chloride Level 96 mmol/L (98-107) Carbon Dioxide Level 23 mmol/L (21-32) Anion Gap 11 (6-14) Blood Urea Nitrogen 56 mg/dL (7-20) Creatinine 4.0 mg/dL (0.6-1.0) Estimated GFR (Cockcroft-Gault) 14.1 Glucose Level 80 mg/dL (70-99) Calcium Level 7.9 mg/dL (8.5-10.1) CY-Jhb-H-Type Natriuretic Peptide 1535 pg/mL (0-124) Thyroid Stimulating Hormone (TSH) 0.560 uIU/mL (0.358-3.74) Urine Opiates Screen Pos (NEG) Urine Methadone Screen Neg (NEG) Urine Barbiturates Neg (NEG) Urine Phencyclidine Screen Neg (NEG) Urine Amphetamine/Methamphetamine Neg (NEG) Urine Benzodiazepines Screen Neg (NEG) Urine Cocaine Screen Neg (NEG) Urine Cannabinoids Screen Neg (NEG) Urine Ethyl Alcohol Neg (NEG) JO CORNEJO MD Apr 04, 2019 15:50
[2019-04-04] MEDS: MICAFUNGIN 100 MG in IV DEXTROSE 5% 100ML 100 ML IV SCH (16:04)
[2019-04-04 16:30] LABS: BILIRUBIN,URINE NEGATIVE (NEG); CLARITY,URINE CLEAR; COLOR,URINE YELLOW; NITRITE,URINE NEGATIVE (NEG); PROTEIN,URINE NEGATIVE (NEG-TRACE)
[2019-04-04 16:39] LABS: BACTERIA,URINE FEW /HPF (0-FEW); SQUAMOUS EPITHELIAL CELL,UR OCC /LPF
--- NOTE | 2019-04-04 17:22 | RAD ---
Examination: CT chest without contrast HISTORY: History of congestive heart failure, pneumonia COMPARISON: None available TECHNIQUE: Axial CT images of chest were performed without contrast. Coronal and sagittal reformats are performed. Exposure: One or more of the following individualized dose reduction techniques were utilized for this examination: 1. Automated exposure control 2. Adjustment of the mA and/or kV according to patient size 3. Use of iterative reconstruction technique FINDINGS: The central airways are patent. The heart size grossly appears unremarkable. The caliber of the aorta grossly appears unremarkable. Examination limited lack of IV contrast. There are patchy airspace opacities identified in the left upper lobe of the lung and in the right lower lobe of the lung with air bronchograms particularly in the right lower lobe of the lung likely pneumonia. Few patchy airspace opacities identified in the left lower lobe of the lung. No evidence of pleural effusion or pneumothorax. The noncontrasted liver, spleen, adrenals grossly appears unremarkable. Surgical changes identified in the stomach. Mild degenerative changes thoracic spine. IMPRESSION: Patchy airspace opacities identified in the left upper lobe of the lung, left lower lobe of the lung with consolidation changes identified in the right lower lobe of lung likely pneumonia. Follow-up to resolution. Electronically signed by: Landon Moe MD (04/04/2019 5:19 PM) [id number]
--- NOTE | 2019-04-04 17:50 | RAD ---
MRI of the brain without contrast 04/04/2019 Clinical History: Altered mental status. Technique: Unenhanced T1-weighted sagittal and axial, T2-weighted axial and coronal and FLAIR, gradient echo and diffusion-weighted axial images of the brain were obtained. Findings: Comparison is made to patient's CT scan of the head dated 03/24/2018. Patient reportedly had an CT scan of the head performed earlier today at outside institution which is unavailable for comparison. Images from the study are degraded by patient motion. There is mild generalized parenchymal atrophy. Patchy, confluent and multiple small focal areas of increased signal intensity are seen within the periventricular and subcortical white matter of both cerebral hemispheres on the FLAIR and T2-weighted images consistent most likely with areas of small vessel ischemic disease. No acute parenchymal abnormality is seen. No extra-axial fluid collection is seen. There is no MRI evidence of acute ischemia/infarction. Mild mucosal thickening in seen scattered throughout the paranasal sinuses. Normal flow voids are seen within the major vascular structures surrounding the brain parenchyma. Impression: No acute parenchymal abnormality is seen. Electronically signed by: Sunny Harrington MD (04/04/2019 5:47 PM) [facility]
--- NOTE | 2019-04-04 17:59 | CONS ---
DATE OF CONSULTATION: Tim Mills NP dictating for Dr. Orly Lindsey, Infectious Disease. She had EEG earlier today and a brain MRI is pending. HISTORY OF PRESENT ILLNESS: The patient recalls not feeling well for the past 3 weeks and over the last couple of days, she has felt that her thinking was not quite straight. She was having visual hallucinations and forgetfulness. Her son apparently felt that she was behaving not herself. She says her vision seemed blurry and bright lights are. She feels weak, especially in her legs and unable to walk. She noticed having involuntary jerking of all her extremities intermittently. She denies headache, neck stiffness, fevers or chills. She has a productive cough. Denies shortness of air or chest discomfort. She is requiring supplemental oxygen of 2 liters. She complains of chronic lower back pain, a little bit worse than usual, along with left arm pain. She has been having some urinary urgency with little urine output amounts. Denies nausea, vomiting, diarrhea or cramps. She feels a little constipated. She believes she may have been bitten by some sort of bugs on her thigh, right hand, and left arm causing a small rash and itching that seems to be going away. She has had a history of syphilis with treatment in the past. She reports painful vaginal lesions like pimples off and on. She has a history of chickenpox. Denies history of shingles. PAST MEDICAL HISTORY: Chronic kidney disease, morbid obesity, sleep apnea and uses a CPAP uterine cancer, history of uterine cancer, hypertension, osteoarthritis, fibromyalgia episode of malignant hyperthermia. PAST SURGICAL HISTORY: Hysterectomy, anterior cervical diskectomy and fusion of cervical C4-C5 and C5-C6 in 04/2018, gastric bypass surgery in 2004, , laparoscopy, total abdominal hysterectomy, bilateral salpingo-oophorectomy, back surgery, left knee arthroscopic surgery, history of atrial fibrillation. SOCIAL HISTORY: The patient lives at home with her son. Nonsmoker. She is and disabled. 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 ALLERGIES: ACETAMINOPHEN, ADHESIVE TAPE, BACLOFEN, LATEX AND PROPOXYPHENE. CURRENT MEDICATIONS: Ceftriaxone, azithromycin, acyclovir, albuterol, DuoNeb, probiotics. REVIEW OF SYSTEMS: Per HPI, otherwise all other review of systems are negative. PHYSICAL EXAMINATION: VITAL SIGNS: Temperature is 97.7, blood pressure 126/71, heart rate 76, respiratory rate 16, pulse oximetry 97% on 3 liters oxygen, BMI 58. GENERAL: The patient is propped up in bed, alert, and eating. HEENT: Pupils equally round, reactive. Normal conjunctivae. Oropharynx pink and moist. Small ulcer, lateral left side of tongue. NECK: Supple, no nuchal rigidity. LUNGS: Clear to auscultation. HEART: S1 and S2. ABDOMEN: Obese, soft, nontender with bowel sounds present. GENITOURINARY: Zepeda in place. Vulva excoriated with vaginal thick white discharge. No lesions noted. EXTREMITIES: Trace edema in lower extremities bilaterally. No cyanosis. SKIN: Warm to touch. No signs of rash. NEUROLOGIC: Alert, answering questions appropriately, moving all extremities. The lower extremities are weak. Extraocular movements intact. LABORATORY DATA: Today's WBC 11.8 from 17.2, hemoglobin 10.3, platelets 233,000. Sodium 130, potassium 3.8, creatinine 4.0, BUN 56, glucose 80, TSH 0.560. Urine toxicology positive for opiates. Urinalysis positive for wbc's, occasional squamous epithelial cells and few bacteria. Blood cultures from [facility] 04/03/2019, pending. CT head per HPI. Brain MRI pending. Left upper extremity venous Doppler sonogram showed no evidence of DVT. Today's chest x-ray showed multifocal pulmonary opacities. CT chest pending. IMPRESSION: 1. Acute encephalopathy and abnormal CT head concerning for herpetic encephalitis. 2. Multifocal pulmonary infiltrates, pneumonia cannot be ruled out. CT chest pending. 3. Leukocytosis, improved. 4. Oral ulcer. 5. Vulvovaginitis. 6. Acute kidney injury on chronic kidney disease. 7. Hyponatremia. 8. Involuntary jerking. 9. Morbid obesity. 10. Hypertension. 11. History of syphilis with treatment. 12. History of atrial fibrillation. PLAN: 1. Continue the ceftriaxone and azithromycin for community-acquired pneumonia. 2. Continue the acyclovir, renally dosed. 3. We will check a RPR titer, add micafungin x 2 doses and nystatin cream. May need lumbar puncture. Awaiting Neurology evaluation and MRI results. Thank you, Dr. Garrido, for asking us to participate in this patient's care. Should you have further questions or concerns, please call. The patient seen and examined, and plan of care implemented by Dr. Orly Lindsey. ORLY LINDSEY MD DR: TONNY/meenu JOB#: [id number] / [id number]
[2019-04-04 19:15] VITALS: BP 106/58
[2019-04-04] MEDS: LACTOBACILLUS RHAMNOSUS GG 1 CAPSULE. PO SCH (20:30)
[2019-04-04] MEDS: NYSTATIN 100,000 UNIT/GM TOPICAL CREAM 15GM TUBE. TP SCH (20:30)
--- NOTE | 2019-04-04 22:46 | CONS ---
DATE OF CONSULTATION: 04/04/2019 REFERRING PHYSICIAN: Dr. Garrido. REASON FOR CONSULTATION: Questionable herpes encephalitis. HISTORY OF PRESENT ILLNESS: The patient is a 53-year-old -[place] female who was brought to [facility] Emergency Room via EMS yesterday for evaluation of altered mental status and generalized weakness. She was found to have elevated WBC count of 17,200, creatinine 4.8, BUN 56, and a sodium level of 126. Urinalysis was unremarkable for infection. Blood cultures were ordered. A chest x-ray showed pulmonary infiltrates and a CT head showed some loss of avendaño-white differentiation of the temporal lobes bilaterally concerning for herpetic encephalitis. She was dosed with ceftriaxone and azithromycin as well as acyclovir, and transferred to [facility] for further evaluation. She had an EGD done earlier in [facility] ORLY LINDSEY MD DR: COLLEEN/meenu JOB#: [id number] / [id number]
[2019-04-04 22:50] VITALS: BP 125/58
[2019-04-05 03:15] VITALS: BP 119/63
[2019-04-05 05:20] LABS: ALBUMIN 2.5 g/dL (3.4-5.0); ALBUMIN/GLOBULIN RATIO 0.6 (1.0-1.7); CALCIUM 8.1 mg/dL (8.5-10.1); CREATININE 2.3 mg/dL (0.6-1.0); GFR 26.6; POTASSIUM 4.2 mmol/L (3.5-5.1); TOTAL BILIRUBIN 0.3 mg/dL (0.2-1.0); TOTAL PROTEIN 6.9 g/dL (6.4-8.2)
[2019-04-05 05:27] LABS: HEMATOCRIT 31.4 % (36.0-47.0); HEMOGLOBIN 10.3 g/dL (12.0-15.5); RED BLOOD COUNT 3.66 x10^6/uL (3.50-5.40); RED CELL DISTRIBUTION WIDTH 18.2 % (11.5-14.5); WHITE BLOOD COUNT 7.5 x10^3/uL (4.0-11.0)
[2019-04-05 07:00] VITALS: BP 138/69
[2019-04-05] MEDS: IV NORMAL SALINE 1000ML BAG 1,000 ML IV SCH ×2 (07:30→17:25)
[2019-04-05] MEDS: IPRATRPIUM/ALBUTEROL 0.5/2.5MG 3 ML NEBU. NEB SCH ×4 (08:15→19:42)
[2019-04-05] MEDS: LACTOBACILLUS RHAMNOSUS GG 1 CAPSULE. PO SCH ×2 (08:30→21:20)
[2019-04-05] MEDS: NYSTATIN 100,000 UNIT/GM TOPICAL CREAM 15GM TUBE. TP SCH ×2 (08:30→21:19)
[2019-04-05] MEDS: AZITHROMYCIN 500 MG in IV NORMAL SALINE 250ML 250 ML IV SCH (08:30)
[2019-04-05] MEDS: cefTRIAXone IV Push 1 GM VIAL. IVP SCH (08:31)
[2019-04-05] MEDS ORDERED: FLU VAX QS 2019-20 (36MOS+)/PF 0.5 ML SYRINGE. VAX IM ONE (09:00)
--- NOTE | 2019-04-05 09:28 | CARD ---
MR#: [id number] Date of Study: 04/04/2019 Ordering Physician: CHANTAL CABALLERO, Referring Physician: CHANTAL CABALLERO, Tech: Emily Ware APPROVED REPORT EXAM: Two-dimensional and M-mode echocardiogram with Doppler and color Doppler. Other Information Quality : AverageHR: 80bpm Technically limited study due to body habitus. INDICATION Congestive Heart Failure 2D DIMENSIONS RVDd3.3 (2.9-3.5cm)Left Atrium(2D)2.9 (1.6-4.0cm) IVSd2.3 (0.7-1.1cm)Aortic Root(2D)2.6 (2.0-3.7cm) LVDd3.7 (3.9-5.9cm)LVOT Diameter1.9 (1.8-2.4cm) PWd0.9 (0.7-1.1cm)LVDs2.2 (2.5-4.0cm) FS (%) 39.4 %SV40.7 ml LVEF(%)70.8 (>50%) Aortic Valve AoV Peak Umer.177.3cm/sAoV VTI37.0cm AO Peak GR.12.6mmHgLVOT VTI 27.80cm AO Mean GR.7mmHg Mitral Valve MV E Wodxzsen48.7cm/sMV DECEL [id number] MV A Tfseqvdb44.3cm/sE/A Ratio1.3 TDI Lateral E' P. V10.81cm/sMedial E' P. V11.26cm/s E/Lateral E'8.4E/Medial E'8.1 Tricuspid Valve TR P. Yajnpdhp517ac/sRAP [id number] TR Peak Gr.[id number] Pulmonary Vein S1 Bxyuxyoh53.2cm/sS2 Geyhpqiv09.59cm/s D2 Leycorgh87.6cm/sPVa [id number] LEFT VENTRICLE The left ventricle is normal size. There is normal left ventricular wall thickness. The left ventricu lar systolic function is normal. The Ejection Fraction is 60-65%. There is normal LV segmental wall m otion. The left ventricular diastolic function and filling is normal for age. RIGHT VENTRICLE The right ventricle is normal size. There is normal right ventricular wall thickness. The right ventr icular systolic function is normal. ATRIA The left atrium size is normal. The right atrium size is normal. The interatrial septum is intact wit h no evidence for an atrial septal defect or patent foramen ovale as noted on 2-D or Doppler imaging. AORTIC VALVE The aortic valve is normal in structure and function. Doppler and Color Flow revealed no significant aortic regurgitation. There is no significant aortic valvular stenosis. MITRAL VALVE The mitral valve is normal in structure and function. There is no evidence of mitral valve prolapse. There is no mitral valve stenosis. Doppler and Color Flow revealed no mitral valve regurgitation note d. TRICUSPID VALVE The tricuspid valve is normal in structure and function. Doppler and Color Flow revealed trace tricus pid regurgitation with an estimated PAP of 40 mmHg. There is no tricuspid valve prolapse or vegetatio n. There is no tricuspid valve stenosis. PULMONIC VALVE The pulmonary valve is normal in structure and function. Doppler and Color Flow revealed no pulmonic valvular regurgitation. GREAT VESSELS The aortic root is normal in size. The IVC is normal in size and collapses >50% with inspiration. PERICARDIAL EFFUSION There is no evidence of significant pericardial effusion. Critical Notification Critical Value: No <Conclusion> The left ventricular systolic function is normal. The Ejection Fraction is 60-65%. There is normal LV segmental wall motion. Trace tricuspid regurgitation with an estimated PAP of 40 mmHg. There is no evidence of significant pericardial effusion. Signed by : Pedro Pablo Sethi, Electronically Approved : 04/05/2019 09:27:42
--- NOTE | 2019-04-05 09:41 | CONS ---
DATE OF CONSULTATION: 04/04/2019 Tim Mills NP dictating for Dr. Orly Lindsey, Infectious Disease. REFERRING PHYSICIAN: Dr. Garrido. REASON FOR CONSULTATION: Questionable herpes encephalitis. HISTORY OF PRESENT ILLNESS: The patient is a 53-year-old -[place] female who was brought to [facility] Emergency Room via EMS yesterday for evaluation of altered mental status and generalized weakness. She was found to have elevated WBC count of 17,200, creatinine 4.8, BUN 56, and a sodium level of 126. Urinalysis was unremarkable for infection. Blood cultures were ordered. A chest x-ray showed pulmonary infiltrates and a CT head showed some loss of avendaño-white differentiation of the temporal lobes bilaterally concerning for herpetic encephalitis. She was dosed with ceftriaxone and azithromycin as well as acyclovir, and transferred to [facility] for further evaluation. She had EEG earlier today and a brain MRI is pending. The patient recalls not feeling well for the past 3 weeks and over the last couple of days, she has felt that her thinking was not quite straight. She was having visual hallucinations and forgetfulness. Her son apparently felt that she was behaving not herself. She says her vision seemed blurry and bright lights are. She feels weak, especially in her legs and unable to walk. She noticed having involuntary jerking of all her extremities intermittently. She denies headache, neck stiffness, fevers or chills. She has a productive cough. Denies shortness of air or chest discomfort. She is requiring supplemental oxygen of 2 liters. She complains of chronic lower back pain, a little bit worse than usual, along with left arm pain. She has been having some urinary urgency with little urine output amounts. Denies nausea, vomiting, diarrhea or cramps. She feels a little constipated. She believes she may have been bitten by some sort of bugs on her thigh, right hand, and left arm causing a small rash and itching that seems to be going away. She has had a history of syphilis with treatment in the past. She reports painful vaginal lesions like pimples off and on. She has a history of chickenpox. Denies history of shingles. PAST MEDICAL HISTORY: Chronic kidney disease, morbid obesity, sleep apnea and uses a CPAP uterine cancer, history of uterine cancer, hypertension, osteoarthritis, fibromyalgia episode of malignant hyperthermia. PAST SURGICAL HISTORY: Hysterectomy, anterior cervical diskectomy and fusion of cervical C4-C5 and C5-C6 in 04/2018, gastric bypass surgery in 2004, , laparoscopy, total abdominal hysterectomy, bilateral salpingo-oophorectomy, back surgery, left knee arthroscopic surgery, history of atrial fibrillation. SOCIAL HISTORY: The patient lives at home with her son. Nonsmoker. She is and disabled. 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 ALLERGIES: ACETAMINOPHEN, ADHESIVE TAPE, BACLOFEN, LATEX AND PROPOXYPHENE. CURRENT MEDICATIONS: Ceftriaxone, azithromycin, acyclovir, albuterol, DuoNeb, probiotics. REVIEW OF SYSTEMS: Per HPI, otherwise all other review of systems are negative. PHYSICAL EXAMINATION: VITAL SIGNS: Temperature is 97.7, blood pressure 126/71, heart rate 76, respiratory rate 16, pulse oximetry 97% on 3 liters oxygen, BMI 58. GENERAL: The patient is propped up in bed, alert, and eating. HEENT: Pupils equally round, reactive. Normal conjunctivae. Oropharynx pink and moist. Small ulcer, lateral left side of tongue. NECK: Supple, no nuchal rigidity. LUNGS: Clear to auscultation. HEART: S1 and S2. ABDOMEN: Obese, soft, nontender with bowel sounds present. GENITOURINARY: Zepeda in place. Vulva excoriated with vaginal thick white discharge. No lesions noted. EXTREMITIES: Trace edema in lower extremities bilaterally. No cyanosis. SKIN: Warm to touch. No signs of rash. NEUROLOGIC: Alert, answering questions appropriately, moving all extremities. The lower extremities are weak. Extraocular movements intact. LABORATORY DATA: Today's WBC 11.8 from 17.2, hemoglobin 10.3, platelets 233,000. Sodium 130, potassium 3.8, creatinine 4.0, BUN 56, glucose 80, TSH 0.560. Urine toxicology positive for opiates. Urinalysis positive for wbc's, occasional squamous epithelial cells and few bacteria. [facility] cultures from [facility] 04/03/2019, pending. CT head per HPI. Brain MRI pending. Left upper extremity venous Doppler sonogram showed no evidence of DVT. Today's chest x-ray showed multifocal pulmonary opacities. CT chest pending. IMPRESSION: 1. Acute encephalopathy and abnormal CT head concerning for herpetic encephalitis. 2. Multifocal pulmonary infiltrates, pneumonia cannot be ruled out. CT chest pending. 3. Leukocytosis, improved. 4. Oral ulcer. 5. Vulvovaginitis. 6. Acute kidney injury on chronic kidney disease. 7. Hyponatremia. 8. Involuntary jerking. 9. Morbid obesity. 10. Hypertension. 11. History of syphilis with treatment. 12. History of atrial fibrillation. PLAN: 1. Continue the ceftriaxone and azithromycin for community-acquired pneumonia. 2. Continue the acyclovir, renally dosed. 3. We will check a RPR titer, add micafungin x 2 doses and nystatin cream. May need lumbar puncture. Awaiting Neurology evaluation and MRI results. Thank you, Dr. Garrido, for asking us to participate in this patient's care. Should you have further questions or concerns, please call. The patient seen and examined, and plan of care implemented by Dr. Orly Lindsey. ORLY LINDSEY MD DR: COLLEEN/meenu JOB#: [id number] / [id number]
--- NOTE | 2019-04-05 09:46 | PDOC ---
SUBJECTIVE ROS Stable, No complaints this am OBJECTIVE Vital Signs Vital Signs Date Time Temp Pulse Resp B/P (MAP) Pulse Ox O2 Delivery O2 Flow Rate FiO2 04/05/19 08:15 98 Nasal Cannula 2.0 04/05/19 07:00 97.8 95 20 138/69 (92) 97.8 I & 0 Intake and Output 04/05/19 06:59 Intake Total 100 ml Output Total 2150 ml Balance -2050 ml Intake Oral 100 ml Output Urine Total 2150 ml PHYSICAL EXAM Physical Exam GENERAL: NAD HEEN-O2 by NC NECK: Supple. LUNGS CTA, decreased at bases HEART: RRR ABDOMEN: Obese, Non tender NEUROLOGIC: Alert and oriented EXTREMITIES: Edema 1+ since last week per patient - Zepeda + , No CVA or SP tenderness SKIN- No rash DIAGNOSIS/ASSESSMENT Assessment & Plan NAY - Vasomotor/ ATN 2/2 Dehydration Hx of Vomiting Renal function improving E-Lytes and acid base stable, Currently No Indication fro Emergent HD Supportive care,UA , Strict I/O, Monitor UA WBC's +, No Nitrites per primary CKD stage 3- baseline in 2017 (last seen in our office ) 1.1 HypoNa- Improving 126--> 130 Hypertension On losartan and Lasix per Home med list Hypotensive at initial presentation Hold both Lasix and Losartan Abnormal CT scan head - Neurology following COMMENT/RELEVANT DATA Meds Current Medications Medications (Trade) Dose Ordered Sig/Afshin Start Time Stop Time Status Last Admin Dose Admin Acyclovir Sodium 500 mg/Dextrose 110 ml @ 110 mls/hr Q24H 04/04/19 12:00 04/04/19 14:39 110 MLS/HR Albuterol Sulfate (Ventolin Neb Soln) 2.5 mg PRN Q4HRS PRN 04/04/19 04:45 Albuterol/ Ipratropium (Duoneb) 3 ml RTQID 04/04/19 08:00 04/05/19 08:15 3 ML Azithromycin 250 ml @ 250 mls/hr DAILY 04/04/19 09:00 UNV Azithromycin 500 mg/Sodium Chloride 250 ml @ 250 mls/hr Q24H 04/04/19 10:00 04/05/19 08:30 250 MLS/HR Ceftriaxone Sodium (Rocephin) 1 gm Q24H 04/04/19 10:00 04/05/19 08:31 1 GM Influenza Virus Vaccine Quadrival (Afluria Quad 2019-20 (3yr Up) Syringe) 0.5 ml ONCE ONCE 04/05/19 09:00 04/05/19 09:01 DC Info (FLU VACCINE SCREEN per RX) 1 each PRN DAILY PRN 04/04/19 09:00 Cancel Lactobacillus Rhamnosus (Culturelle) 1 cap BID 04/04/19 21:00 04/05/19 08:30 1 CAP Micafungin Sodium 100 mg/Dextrose 100 ml @ 100 mls/hr Q24H 04/04/19 16:00 04/06/19 15:59 04/04/19 16:04 100 MLS/HR Nystatin (Mycostatin) 1 gene BID 04/04/19 21:00 04/05/19 08:30 1 GENE Sodium Chloride 1,000 ml @ 100 mls/hr Q10H 04/04/19 11:30 04/04/19 22:06 100 MLS/HR Lab Laboratory Tests Test 04/04/19 10:50 04/04/19 15:00 04/05/19 03:30 04/05/19 04:30 Urine Color Yellow Urine Clarity Clear Urine pH 5.0 Urine Specific [place] 1.010 Urine Protein Negative mg/dL (NEG-TRACE) Urine Glucose (UA) Negative mg/dL (NEG) Urine Ketones (Stick) Negative mg/dL (NEG) Urine Blood Moderate (NEG) Urine Nitrite Negative (NEG) Urine Bilirubin Negative (NEG) Urine Urobilinogen Dipstick 1.0 mg/dL (0.2 mg/dL) Urine Leukocyte Esterase Trace (NEG) Urine RBC 3-5 /HPF (0-2) Urine WBC 11-20 /HPF (0-4) Urine Squamous Epithelial Cells Occ /LPF Urine Bacteria Few /HPF (0-FEW) Urine Mucus Mod /LPF Urine Opiates Screen Pos (NEG) Urine Methadone Screen Neg (NEG) Urine Barbiturates Neg (NEG) Urine Phencyclidine Screen Neg (NEG) Urine Amphetamine/Methamphetamine Neg (NEG) Urine Benzodiazepines Screen Neg (NEG) Urine Cocaine Screen Neg (NEG) Urine Cannabinoids Screen Neg (NEG) Urine Ethyl Alcohol Neg (NEG) Vitamin B12 Level > 2000 pg/mL (247-911) Rapid Plasma Reagin Non reactive (Non Reactive) Sodium Level 135 mmol/L (136-145) Potassium Level 4.2 mmol/L (3.5-5.1) Chloride Level 100 mmol/L (98-107) Carbon Dioxide Level 17 mmol/L (21-32) Anion Gap 18 (6-14) Blood Urea Nitrogen 45 mg/dL (7-20) Creatinine 2.3 mg/dL (0.6-1.0) Estimated GFR (Cockcroft-Gault) 26.6 BUN/Creatinine Ratio 20 (6-20) Glucose Level 76 mg/dL (70-99) Calcium Level 8.1 mg/dL (8.5-10.1) Total Bilirubin 0.3 mg/dL (0.2-1.0) Aspartate Amino Transf (AST/SGOT) 34 U/L (15-37) Alanine Aminotransferase (ALT/SGPT) 20 U/L (14-59) Alkaline Phosphatase 123 U/L (46-116) Total Protein 6.9 g/dL (6.4-8.2) Albumin 2.5 g/dL (3.4-5.0) Albumin/Globulin Ratio 0.6 (1.0-1.7) White Blood Count 7.5 x10^3/uL (4.0-11.0) Red Blood Count 3.66 x10^6/uL (3.50-5.40) Hemoglobin 10.3 g/dL (12.0-15.5) Hematocrit 31.4 % (36.0-47.0) Mean Corpuscular Volume 86 fL (79-100) Mean Corpuscular Hemoglobin 28 pg (25-35) Mean Corpuscular Hemoglobin Concent 33 g/dL (31-37) Red Cell Distribution Width 18.2 % (11.5-14.5) Platelet Count 302 x10^3/uL (140-400) Results All relevant outside records, renal labs, imaging studies, telemetry/EKG's were reviewed. Other CT chest- Patchy airspace opacities identified in the left upper lobe of the lung, left lower lobe of the lung with consolidation changes identified in the right lower lobe of lung likely pneumonia. Follow-up to resolution. SAGE LENZ MD Apr 05, 2019 09:46
--- NOTE | 2019-04-05 09:50 | PDOC ---
PULMONARY PROGRESS NOTES Subjective feels better cough with yellow sputum Vitals Vital Signs Date Time Temp Pulse Resp B/P (MAP) Pulse Ox O2 Delivery O2 Flow Rate FiO2 04/05/19 08:15 98 Nasal Cannula 2.0 04/05/19 07:00 97.8 95 20 138/69 (92) 97.8 ROS: No Chest Pain, No Increase Cough General: Alert, No acute distress Lungs: Other (few rhonchi ant) Cardiovascular: S1 Abdomen: Soft, Non-tender, Other (obese) Neuro Exam: Alert Extremities: Other (trace edema) Labs Laboratory Tests Test 04/04/19 06:35 04/04/19 10:50 04/04/19 15:00 04/05/19 03:30 White Blood Count 11.8 x10^3/uL (4.0-11.0) Red Blood Count 3.72 x10^6/uL (3.50-5.40) Hemoglobin 10.3 g/dL (12.0-15.5) Hematocrit 32.7 % (36.0-47.0) Mean Corpuscular Volume 88 fL (79-100) Mean Corpuscular Hemoglobin 28 pg (25-35) Mean Corpuscular Hemoglobin Concent 32 g/dL (31-37) Red Cell Distribution Width 18.1 % (11.5-14.5) Platelet Count 233 x10^3/uL (140-400) Neutrophils (%) (Auto) 79 % (31-73) Lymphocytes (%) (Auto) 9 % (24-48) Monocytes (%) (Auto) 10 % (0-9) Eosinophils (%) (Auto) 1 % (0-3) Basophils (%) (Auto) 0 % (0-3) Neutrophils # (Auto) 9.3 x10^3/uL (1.8-7.7) Lymphocytes # (Auto) 1.1 x10^3/uL (1.0-4.8) Monocytes # (Auto) 1.2 x10^3/uL (0.0-1.1) Eosinophils # (Auto) 0.1 x10^3/uL (0.0-0.7) Basophils # (Auto) 0.0 x10^3/uL (0.0-0.2) Sodium Level 130 mmol/L (136-145) 135 mmol/L (136-145) Potassium Level 3.8 mmol/L (3.5-5.1) 4.2 mmol/L (3.5-5.1) Chloride Level 96 mmol/L (98-107) 100 mmol/L (98-107) Carbon Dioxide Level 23 mmol/L (21-32) 17 mmol/L (21-32) Anion Gap 11 (6-14) 18 (6-14) Blood Urea Nitrogen 56 mg/dL (7-20) 45 mg/dL (7-20) Creatinine 4.0 mg/dL (0.6-1.0) 2.3 mg/dL (0.6-1.0) Estimated GFR (Cockcroft-Gault) 14.1 26.6 Glucose Level 80 mg/dL (70-99) 76 mg/dL (70-99) Calcium Level 7.9 mg/dL (8.5-10.1) 8.1 mg/dL (8.5-10.1) YD-Ofw-Q-Type Natriuretic Peptide 1535 pg/mL (0-124) Thyroid Stimulating Hormone (TSH) 0.560 uIU/mL (0.358-3.74) Urine Color Yellow Urine Clarity Clear Urine pH 5.0 Urine Specific [place] 1.010 Urine Protein Negative mg/dL (NEG-TRACE) Urine Glucose (UA) Negative mg/dL (NEG) Urine Ketones (Stick) Negative mg/dL (NEG) Urine Blood Moderate (NEG) Urine Nitrite Negative (NEG) Urine Bilirubin Negative (NEG) Urine Urobilinogen Dipstick 1.0 mg/dL (0.2 mg/dL) Urine Leukocyte Esterase Trace (NEG) Urine RBC 3-5 /HPF (0-2) Urine WBC 11-20 /HPF (0-4) Urine Squamous Epithelial Cells Occ /LPF Urine Bacteria Few /HPF (0-FEW) Urine Mucus Mod /LPF Urine Opiates Screen Pos (NEG) Urine Methadone Screen Neg (NEG) Urine Barbiturates Neg (NEG) Urine Phencyclidine Screen Neg (NEG) Urine Amphetamine/Methamphetamine Neg (NEG) Urine Benzodiazepines Screen Neg (NEG) Urine Cocaine Screen Neg (NEG) Urine Cannabinoids Screen Neg (NEG) Urine Ethyl Alcohol Neg (NEG) Vitamin B12 Level > 2000 pg/mL (247-911) Rapid Plasma Reagin Non reactive (Non Reactive) BUN/Creatinine Ratio 20 (6-20) Total Bilirubin 0.3 mg/dL (0.2-1.0) Aspartate Amino Transf (AST/SGOT) 34 U/L (15-37) Alanine Aminotransferase (ALT/SGPT) 20 U/L (14-59) Alkaline Phosphatase 123 U/L (46-116) Total Protein 6.9 g/dL (6.4-8.2) Albumin 2.5 g/dL (3.4-5.0) Albumin/Globulin Ratio 0.6 (1.0-1.7) Test 04/05/19 04:30 White Blood Count 7.5 x10^3/uL (4.0-11.0) Red Blood Count 3.66 x10^6/uL (3.50-5.40) Hemoglobin 10.3 g/dL (12.0-15.5) Hematocrit 31.4 % (36.0-47.0) Mean Corpuscular Volume 86 fL (79-100) Mean Corpuscular Hemoglobin 28 pg (25-35) Mean Corpuscular Hemoglobin Concent 33 g/dL (31-37) Red Cell Distribution Width 18.2 % (11.5-14.5) Platelet Count 302 x10^3/uL (140-400) Laboratory Tests Test 04/04/19 10:50 04/04/19 15:00 04/05/19 03:30 04/05/19 04:30 Urine Color Yellow Urine Clarity Clear Urine pH 5.0 Urine Specific [place] 1.010 Urine Protein Negative mg/dL (NEG-TRACE) Urine Glucose (UA) Negative mg/dL (NEG) Urine Ketones (Stick) Negative mg/dL (NEG) Urine Blood Moderate (NEG) Urine Nitrite Negative (NEG) Urine Bilirubin Negative (NEG) Urine Urobilinogen Dipstick 1.0 mg/dL (0.2 mg/dL) Urine Leukocyte Esterase Trace (NEG) Urine RBC 3-5 /HPF (0-2) Urine WBC 11-20 /HPF (0-4) Urine Squamous Epithelial Cells Occ /LPF Urine Bacteria Few /HPF (0-FEW) Urine Mucus Mod /LPF Urine Opiates Screen Pos (NEG) Urine Methadone Screen Neg (NEG) Urine Barbiturates Neg (NEG) Urine Phencyclidine Screen Neg (NEG) Urine Amphetamine/Methamphetamine Neg (NEG) Urine Benzodiazepines Screen Neg (NEG) Urine Cocaine Screen Neg (NEG) Urine Cannabinoids Screen Neg (NEG) Urine Ethyl Alcohol Neg (NEG) Vitamin B12 Level > 2000 pg/mL (247-911) Rapid Plasma Reagin Non reactive (Non Reactive) Sodium Level 135 mmol/L (136-145) Potassium Level 4.2 mmol/L (3.5-5.1) Chloride Level 100 mmol/L (98-107) Carbon Dioxide Level 17 mmol/L (21-32) Anion Gap 18 (6-14) Blood Urea Nitrogen 45 mg/dL (7-20) Creatinine 2.3 mg/dL (0.6-1.0) Estimated GFR (Cockcroft-Gault) 26.6 BUN/Creatinine Ratio 20 (6-20) Glucose Level 76 mg/dL (70-99) Calcium Level 8.1 mg/dL (8.5-10.1) Total Bilirubin 0.3 mg/dL (0.2-1.0) Aspartate Amino Transf (AST/SGOT) 34 U/L (15-37) Alanine Aminotransferase (ALT/SGPT) 20 U/L (14-59) Alkaline Phosphatase 123 U/L (46-116) Total Protein 6.9 g/dL (6.4-8.2) Albumin 2.5 g/dL (3.4-5.0) Albumin/Globulin Ratio 0.6 (1.0-1.7) White Blood Count 7.5 x10^3/uL (4.0-11.0) Red Blood Count 3.66 x10^6/uL (3.50-5.40) Hemoglobin 10.3 g/dL (12.0-15.5) Hematocrit 31.4 % (36.0-47.0) Mean Corpuscular Volume 86 fL (79-100) Mean Corpuscular Hemoglobin 28 pg (25-35) Mean Corpuscular Hemoglobin Concent 33 g/dL (31-37) Red Cell Distribution Width 18.2 % (11.5-14.5) Platelet Count 302 x10^3/uL (140-400) Medications Active Scripts Medications Dose Route/Sig Max Daily Dose Days Date Category Butrans (Buprenorphine) 1 Each Patch.tdwk 1 Patch TP WEEKLY 04/04/19 Reported Narcan (Naloxone HCl) 4 Mg [place] 4 Mg NS PRN PRN 04/04/19 Reported Breo Ellipta 200-25 Mcg INH (Fluticasone/Vilanterol) 1 Each Blst.w.dev 1 Puff IH DAILY 04/04/19 Reported Tizanidine Hcl 4 Mg Capsule 4 Mg PO TID PRN 04/04/19 Reported Cymbalta (Duloxetine Hcl) 60 Mg Capsule.dr 1 Cap PO DAILY 04/04/19 Reported Furosemide 40 Mg Tablet 1 Tab PO DAILY 04/04/19 Reported Levocetirizine Dihydrochloride 5 Mg Tablet 1 Tab PO QHS 04/04/19 Reported Hydroxychloroquine Sulfate 200 Mg Tablet 200 Mg PO DAILY 04/04/19 Reported Omeprazole 40 Mg Capsule.dr 1 Cap PO DAILY 04/04/19 Reported Chlorzoxazone 500 Mg Tablet 500 Mg PO PRN TID PRN 04/04/19 Reported Estradiol 1 Mg Tablet 1 Tab PO DAILY 04/04/19 Reported Hydroxyzine Pamoate 50 Mg Capsule 50 Mg PO DAILY 04/04/19 Reported Calcium + Vitamin D Tablet (Calcium Carbonate/Vitamin D3) 1 Each Tablet 1 Each PO DAILY 04/04/19 Reported Alendronate Sodium 70 Mg Tablet 1 Tab PO WEEKLY 04/04/19 Reported Ferrous Sulfate 325 Mg Tablet 1 Tab PO DAILY 04/04/19 Reported Nystatin 100,000 Unit/1 Ml Oral.susp 5 Ml PO QID 04/04/19 Reported Nystatin 15 Gm Powder 1 Pat TP QID PRN 04/04/19 Reported Morphine Sulfate Er (Morphine Sulfate) 15 Mg Tablet.er 1 Tab PO BID 04/04/19 Reported Gabapentin 600 Mg Tablet 600 Mg PO BID 04/04/19 Reported Senna-Docusate Sodium Tablet (Sennosides/Docusate Sodium) 1 Each Tablet 1 Each PO BID 04/14/18 Reported Proventil Hfa Inhaler (Albuterol Sulfate) 6.7 Gm Hfa.aer.ad 1 Puff IH PRN Q4HRS PRN 04/05/18 Reported Aspir-Low (Aspirin) 81 Mg Tablet. 81 Mg PO 04/05/18 Reported Losartan Potassium 100 Mg Tablet 100 Mg PO DAILY 04/05/18 Reported Amlodipine Besylate 10 Mg Tablet 10 Mg PO DAILY 10/14/16 Reported Montelukast Sodium Tablet (Montelukast Sodium) 10 Mg Tablet 10 Mg PO HS 10/14/16 Reported Vitamin D (Cholecalciferol (Vitamin D3)) 5,000 Unit Tablet 50,000 Unit PO WEEKLY 10/30/15 Reported Sotalol (Sotalol Hcl) 80 Mg Tablet 120 Mg PO BID 10/30/[address] CHEST MULTI-LOBAR PNEUMONIA Impression . 1. Acute hypoxic respiratory failure secondary to bilateral infiltrates due to pneumonia. 2. Abnormal ct chest c/w multi-lobar pneumonia 3. No significant tobacco history. 4. Chronic kidney disease could be an acute component. 5. 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 ID following 6. Underlying obstructive sleep apnea, on CPAP with good compliance at home. Plan . 1. Continue with present oxygen. 2. Antibiotics per Infectious Disease. 3. DuoNeb. 4. Noncontrast CT reviewed. c/w pneumonia/ multi-lobar 5. echocardiogram with normal EF 6. DVT prophylaxis. 7. Discussed with RN. 8. Home CPAP [facility] CHANTAL CABALLERO MD Apr 05, 2019 09:50
--- NOTE | 2019-04-05 09:52 | PDOC ---
PROGRESS NOTES Subjective Subjective awake and less confused Objective Objective Vital Signs Date Time Temp Pulse Resp B/P (MAP) Pulse Ox O2 Delivery O2 Flow Rate FiO2 04/05/19 08:15 98 Nasal Cannula 2.0 04/05/19 07:00 97.8 95 20 138/69 (92) 97.8 Intake and Output 04/05/19 07:00 Intake Total 100 ml Output Total 2150 ml Balance -2050 ml Intake Oral 100 ml Output Urine Total 2150 ml Physical Exam Abdomen: Normal bowel sounds, Soft Heart: Regular rate, Normal S1, Normal S2 Extremities: No clubbing HEENT: Atraumatic Lungs: Normal air movement Neck: Supple Neuro: Normal speech Psych/Mental Status: Mood NL Skin: No breakdown Assessment Assessment IMPRESSION: 1. Acute encephalopathy and abnormal CT head concerning for herpetic encephalitis. 2. Multifocal pulmonary infiltrates, pneumonia cannot be ruled out. CT chest pending. 3. Leukocytosis, improved. 4. Oral ulcer. 5. Vulvovaginitis. 6. Acute kidney injury on chronic kidney disease. 7. Hyponatremia. 8. Involuntary jerking. 9. Morbid obesity. 10. Hypertension. 11. History of syphilis with treatment. 12. History of atrial fibrillation. PLAN:MRI -neg RPR neg cr 2.3 trending down clinically improving. 1. Continue the ceftriaxone and azithromycin for community-acquired pneumonia. 2. Continue the acyclovir, renally dosed. 3. We will check a RPR titer, add micafungin x 2 doses and nystatin cream. May need lumbar puncture. Awaiting Neurology evaluation and MRI results. Comment Review of Relevant I have reviewed the following items samira (where applicable) has been applied. Labs Laboratory Tests Test 04/04/19 10:50 04/04/19 15:00 04/05/19 03:30 04/05/19 04:30 Urine Color Yellow Urine Clarity Clear Urine pH 5.0 Urine Specific Damon 1.010 Urine Protein Negative mg/dL (NEG-TRACE) Urine Glucose (UA) Negative mg/dL (NEG) Urine Ketones (Stick) Negative mg/dL (NEG) Urine Blood Moderate (NEG) Urine Nitrite Negative (NEG) Urine Bilirubin Negative (NEG) Urine Urobilinogen Dipstick 1.0 mg/dL (0.2 mg/dL) Urine Leukocyte Esterase Trace (NEG) Urine RBC 3-5 /HPF (0-2) Urine WBC 11-20 /HPF (0-4) Urine Squamous Epithelial Cells Occ /LPF Urine Bacteria Few /HPF (0-FEW) Urine Mucus Mod /LPF Urine Opiates Screen Pos (NEG) Urine Methadone Screen Neg (NEG) Urine Barbiturates Neg (NEG) Urine Phencyclidine Screen Neg (NEG) Urine Amphetamine/Methamphetamine Neg (NEG) Urine Benzodiazepines Screen Neg (NEG) Urine Cocaine Screen Neg (NEG) Urine Cannabinoids Screen Neg (NEG) Urine Ethyl Alcohol Neg (NEG) Vitamin B12 Level > 2000 pg/mL (247-911) Rapid Plasma Reagin Non reactive (Non Reactive) Sodium Level 135 mmol/L (136-145) Potassium Level 4.2 mmol/L (3.5-5.1) Chloride Level 100 mmol/L (98-107) Carbon Dioxide Level 17 mmol/L (21-32) Anion Gap 18 (6-14) Blood Urea Nitrogen 45 mg/dL (7-20) Creatinine 2.3 mg/dL (0.6-1.0) Estimated GFR (Cockcroft-Gault) 26.6 BUN/Creatinine Ratio 20 (6-20) Glucose Level 76 mg/dL (70-99) Calcium Level 8.1 mg/dL (8.5-10.1) Total Bilirubin 0.3 mg/dL (0.2-1.0) Aspartate Amino Transf (AST/SGOT) 34 U/L (15-37) Alanine Aminotransferase (ALT/SGPT) 20 U/L (14-59) Alkaline Phosphatase 123 U/L (46-116) Total Protein 6.9 g/dL (6.4-8.2) Albumin 2.5 g/dL (3.4-5.0) Albumin/Globulin Ratio 0.6 (1.0-1.7) White Blood Count 7.5 x10^3/uL (4.0-11.0) Red Blood Count 3.66 x10^6/uL (3.50-5.40) Hemoglobin 10.3 g/dL (12.0-15.5) Hematocrit 31.4 % (36.0-47.0) Mean Corpuscular Volume 86 fL (79-100) Mean Corpuscular Hemoglobin 28 pg (25-35) Mean Corpuscular Hemoglobin Concent 33 g/dL (31-37) Red Cell Distribution Width 18.2 % (11.5-14.5) Platelet Count 302 x10^3/uL (140-400) Medications Current Medications Acyclovir Sodium 500 mg/Dextrose 110 ml @ 110 mls/hr Q24H IV Last administered on 04/04/19at 14:39; Start 04/04/19 at 12:00 Azithromycin 500 mg/Sodium Chloride 250 ml @ 250 mls/hr Q24H IV Last administered on 04/05/19at 08:30; Start 04/04/19 at 10:00 Ceftriaxone Sodium (Rocephin) 1 gm Q24H IVP Last administered on 04/05/19 08:31; Start 04/04/19 at 10:00 Influenza Virus Vaccine Quadrival (Afluria Quad 2019-20 (3yr Up) Syringe) 0.5 ml ONCE ONCE VAX IM ; Start 04/05/19 at 09:00; Stop 04/05/19 at 09:01; Status DC Lactobacillus Rhamnosus (Culturelle) 1 cap BID PO Last administered on 04/05/19at 08:30; Start 04/04/19 at 21:00 Micafungin Sodium 100 mg/Dextrose 100 ml @ 100 mls/hr Q24H IV Last administered on 04/04/19at 16:04; Start 04/04/19 at 16:00; Stop 04/06/19 at 15:59 Nystatin (Mycostatin) 1 gene BID TP Last administered on 04/05/19 08:30; Start 04/04/19 at 21:00 Sodium Chloride 1,000 ml @ 100 mls/hr Q10H IV Last administered on 04/04/19at 22:06; Start 04/04/19 at 11:30 Vitals/I & O Vital Sign - Last 24 Hours 04/04/19 04/04/19 04/04/19 04/04/19 11:00 15:00 16:04 19:15 Temp 97.7 97.8 98.0 97.7 97.8 98.0 Pulse 76 81 78 Resp 16 18 20 B/P (MAP) 126/71 (89) 97/71 (80) 106/58 (74) Pulse Ox 97 94 93 98 O2 Delivery Nasal Cannula Nasal Cannula Nasal Cannula BiPAP/CPAP O2 Flow Rate 3.0 3.0 2.0 9/30/04/04/19 04/04/19 04/04/19 20:00 20:23 21:46 22:50 Temp 98.0 98.0 Pulse 20 Resp 20 B/P (MAP) 125/58 (80) Pulse Ox 98 97 O2 Delivery Bi-pap BiPAP/CPAP BiPAP/CPAP BiPAP/CPAP 04/04/19 04/05/19 04/05/19 04/05/19 23:55 01:57 03:05 03:15 Temp 97.1 97.1 Pulse 82 Resp 20 B/P (MAP) 119/63 (81) Pulse Ox 98 O2 Delivery BiPAP/CPAP BiPAP/CPAP BiPAP/CPAP BiPAP/CPAP 04/05/19 04/05/19 04/05/19 07:00 07:50 08:15 Temp 97.8 97.8 Pulse 95 Resp 20 B/P (MAP) 138/69 (92) Pulse Ox 98 98 O2 Delivery Nasal Cannula Bi-pap Nasal Cannula O2 Flow Rate 2.0 3.0 2.0 Intake and Output 04/04/19 04/04/19 04/05/19 15:00 23:00 07:00 Intake Total 0 ml 100 ml Output Total 575 ml 225 ml 1350 ml Balance -575 ml -225 ml -1250 ml SHIRIN XIONG MD Apr 05, 2019 09:52
[2019-04-05] MEDS ORDERED: NYSTATIN TOPICAL POWDER 15GM BOTTLE. TP PRN (10:00)
--- NOTE | 2019-04-05 10:24 | PDOC ---
Infectious Disease Note Subjective Subjective Feeling better Thinking more clearer O2 down to 1.5 L Denies F/C/SOA/HORN ROS ROS per HPI Vital Sign Vital Signs Vital Signs Date Time Temp Pulse Resp B/P (MAP) Pulse Ox O2 Delivery O2 Flow Rate FiO2 04/05/19 08:15 98 Nasal Cannula 2.0 04/05/19 07:00 97.8 95 20 138/69 (92) 97.8 Physical Exam PHYSICAL EXAM GENERAL: Propped up in bed, alert, smiling, looks better HEENT: Pupils equally round, reactive. Normal conjunctivae. Oropharynx pink and moist. Small ulcer, lateral left side of tongue. NECK: Supple, no nuchal rigidity. LUNGS: Clear to auscultation. HEART: S1 and S2. ABDOMEN: Obese, soft, nontender with bowel sounds present. GENITOURINARY: Zepeda in place. Vulva excoriated with thick white vaginal discharge. No lesions noted. EXTREMITIES: Trace edema in lower extremities bilaterally. No cyanosis. SKIN: Warm to touch. No signs of rash. NEUROLOGIC: Alert, answering questions appropriately, moving all extremities. The lower extremities are weak. Extraocular movements intact. Labs Lab Laboratory Tests Test 04/04/19 10:50 04/04/19 15:00 04/05/19 03:30 04/05/19 04:30 Urine Color Yellow Urine Clarity Clear Urine pH 5.0 Urine Specific Powers 1.010 Urine Protein Negative mg/dL (NEG-TRACE) Urine Glucose (UA) Negative mg/dL (NEG) Urine Ketones (Stick) Negative mg/dL (NEG) Urine Blood Moderate (NEG) Urine Nitrite Negative (NEG) Urine Bilirubin Negative (NEG) Urine Urobilinogen Dipstick 1.0 mg/dL (0.2 mg/dL) Urine Leukocyte Esterase Trace (NEG) Urine RBC 3-5 /HPF (0-2) Urine WBC 11-20 /HPF (0-4) Urine Squamous Epithelial Cells Occ /LPF Urine Bacteria Few /HPF (0-FEW) Urine Mucus Mod /LPF Urine Opiates Screen Pos (NEG) Urine Methadone Screen Neg (NEG) Urine Barbiturates Neg (NEG) Urine Phencyclidine Screen Neg (NEG) Urine Amphetamine/Methamphetamine Neg (NEG) Urine Benzodiazepines Screen Neg (NEG) Urine Cocaine Screen Neg (NEG) Urine Cannabinoids Screen Neg (NEG) Urine Ethyl Alcohol Neg (NEG) Vitamin B12 Level > 2000 pg/mL (247-911) Rapid Plasma Reagin Non reactive (Non Reactive) Sodium Level 135 mmol/L (136-145) Potassium Level 4.2 mmol/L (3.5-5.1) Chloride Level 100 mmol/L (98-107) Carbon Dioxide Level 17 mmol/L (21-32) Anion Gap 18 (6-14) Blood Urea Nitrogen 45 mg/dL (7-20) Creatinine 2.3 mg/dL (0.6-1.0) Estimated GFR (Cockcroft-Gault) 26.6 BUN/Creatinine Ratio 20 (6-20) Glucose Level 76 mg/dL (70-99) Calcium Level 8.1 mg/dL (8.5-10.1) Total Bilirubin 0.3 mg/dL (0.2-1.0) Aspartate Amino Transf (AST/SGOT) 34 U/L (15-37) Alanine Aminotransferase (ALT/SGPT) 20 U/L (14-59) Alkaline Phosphatase 123 U/L (46-116) Total Protein 6.9 g/dL (6.4-8.2) Albumin 2.5 g/dL (3.4-5.0) Albumin/Globulin Ratio 0.6 (1.0-1.7) White Blood Count 7.5 x10^3/uL (4.0-11.0) Red Blood Count 3.66 x10^6/uL (3.50-5.40) Hemoglobin 10.3 g/dL (12.0-15.5) Hematocrit 31.4 % (36.0-47.0) Mean Corpuscular Volume 86 fL (79-100) Mean Corpuscular Hemoglobin 28 pg (25-35) Mean Corpuscular Hemoglobin Concent 33 g/dL (31-37) Red Cell Distribution Width 18.2 % (11.5-14.5) Platelet Count 302 x10^3/uL (140-400) Brain MRI There is mild generalized parenchymal atrophy. Patchy, confluent and multiple small focal areas of increased signal intensity are seen within the periventricular and subcortical white matter of both cerebral hemispheres on the FLAIR and T2-weighted images consistent most likely with areas of small vessel ischemic disease. No acute parenchymal abnormality is seen. No extra-axial fluid collection is seen. There is no MRI evidence of acute ischemia/infarction. Mild mucosal thickening in seen scattered throughout the paranasal sinuses. Normal flow voids are seen within the major vascular structures surrounding the brain parenchyma. Impression: No acute parenchymal abnormality is seen. Chest CT IMPRESSION: Patchy airspace opacities identified in the left upper lobe of the lung, left lower lobe of the lung with consolidation changes identified in the right lower lobe of lung likely pneumonia. Follow-up to resolution. Objective Assessment Acute encephalopathy and abnormal CT head concerning for herpetic encephalitis, improving. MRI negative EEG neg Multifocal pulmonary infiltrates, CT chest c/w pneumonia Leukocytosis - improved Oral ulcer Vulvovaginitis NAY on CKD, improving Hyponatremia (NA 126), improving Involuntary jerking. EEG done Morbid obesity Hypertension History of syphilis with treatment. RPR nonreactive, 04/04 History of atrial fibrillation. Plan Plan of Care cont Rocephin to po soon Azithromycin times one more in am D/c Acyclovir Micafungin total 2 doses Nystatin cream perineal area f/u am labs Supportive care D/w nursing Better. ambulated to restroom. in chair and better. Thoughts are more clear Attending Co-Sign Attending Co-Sign The patient was seen and interviewed as well as examined at the bedside. The dee lin was reviewed. The case was discussed. Agree with the plan of care. CATARINA RAZA APRN Apr 05, 2019 10:23 ORLY LINDSEY MD Apr 05, 2019 16:49
[2019-04-05] MEDS: SENNOSIDES/DOCUSATE 8.6/50MG TABLET. PO SCH ×2 (10:30→21:20)
[2019-04-05] MEDS: NYSTATIN 100,000 UNITS/ML 5 ML ORAL.SUSP. PO SCH ×4 (10:30→21:25)
[2019-04-05] MEDS: BUDESONIDE 0.5 MG/2 ML NEBU. NEB SCH ×2 (10:30→19:42)
[2019-04-05 11:00] VITALS: BP 151/75
--- NOTE | 2019-04-05 13:35 | PDOC ---
PROGRESS NOTES Assessment Assessment Abnormal HCT finding, but no acute abnormality on MRI. Confusion. Generalized weakness Metabolic encephalopathy. AFib. Pneumonia? HTN. Renal failure. Morbid obesity. RECOMMENDATIONS/PLAN:. Treat medical diseases. OT/PT. EEG on 04/04/19: Within normal. Brain MRI on 04/04/19: No acute abnormal findings. HISTORY OF THE PRESENT ILLNESS: This is a 53-y-old AA female patient with above medical diseases has been having mental status changes, confusion and generalized weakness for about 1 week. She was seen in [facility] ER and her HCT was reported questionable bilateral temporal lobe edema, so she was transferred to [facility] for further evaluation. Patient denied recent acute illness. No focalized sensory or motor deficits except generalized weakness. PAST MEDICAL HISTORY: Hypertension, atrial fibrillation, history of CKD, history of morbid obesity, history of obstructive sleep apnea, history of asthma, osteoarthritis, fibromyalgia, history of malignant hyperthermia. PAST SURGERY HISTORY: Gastric bypass surgery in 2004, lost 135 pounds, but she has gained 25 pounds in the last 3 weeks. . ALLERGIES: ACETAMINOPHEN, BACLOFEN, LATEX, and PROPOXYPHENE. MEDICATIONS: Refer to [facility]VIEW OF SYSTEMS: Constitutional: Morbid obesity.. Head: No traumatic brain or head injury. Skin: No edema, or rash. Ear: No infection, tinnitus. Eyes: No vision loss or color blindness. Nose: No bleeding or purulent discharges. Hearing: No hearing decrease. Neck: No injury. Breast: No history of cancer, masses,or discharges. Cardiac: AFib, HTN. Pulmonary: No COPD. GI: No GI ulcer, GI bleeding. Urinary/genital: UTI. Endocrinologic: Diabetes Mellitus. Skeletomuscular: Generalized weakness. Neurological: see HP. Psychiatric: Denies drug use/abuse. Otherwise, not [id number] review of systems. PHYSICAL EXAMINATION: General appearance is in subacute distress. HEENT: Normocephalic and nontraumatic. Eyes, nose, ears, and throat are unremarkable. Neck is supple. No lymphadenopathy. No crepitus. Cardiovascular: S1, S2, regular rate and rhythm. Pulmonary: decreased to auscultation bilaterally. Abdomen: Bowel sounds are positive. Extremities: No rash, lesions, or edema. No restriction of range of motion NEUROLOGICAL EXAMINATION: Awake. Oriented to time, place and person. PERRL. EOMI. CN: no focal findings. Muscle tone: within normal. Muscle strength: 4 due to obesity. DTR: 0-1 due to obesity. Plantar reflex: Flexor response bilaterally Gait: not examined in bed. Sensory exam: no abnormal findings. No cerebellar signs elicited. F-T-N test accurate. Objective Objective Vital Signs Date Time Temp Pulse Resp B/P (MAP) Pulse Ox O2 Delivery O2 Flow Rate FiO2 04/05/19 11:00 98.7 90 20 151/75 (100) 96 Nasal Cannula 2.0 98.7 Intake and Output 04/05/19 07:00 Intake Total 100 ml Output Total 2150 ml Balance -2050 ml Intake Oral 100 ml Output Urine Total 2150 ml Vitals Signs Vitals VS - Last 72 Hours, by Label Date Time Temp Pulse Resp B/P (MAP) Pulse Ox O2 Delivery O2 Flow Rate FiO2 04/05/19 11:00 98.7 90 20 151/75 (100) 96 Nasal Cannula 2.0 98.7 04/05/19 08:15 98 Nasal Cannula 2.0 04/05/19 07:50 Bi-pap 3.0 04/05/19 07:00 97.8 95 20 138/69 (92) 98 Nasal Cannula 2.0 97.8 04/05/19 03:15 97.1 82 20 119/63 (81) 98 BiPAP/CPAP 97.1 04/05/19 03:05 BiPAP/CPAP 04/05/19 01:57 BiPAP/CPAP 04/04/19 23:55 BiPAP/CPAP 04/04/19 22:50 98.0 20 20 125/58 (80) 97 BiPAP/CPAP 98.0 04/04/19 21:46 BiPAP/CPAP 04/04/19 20:23 98 BiPAP/CPAP 04/04/19 20:00 Bi-pap 04/04/19 19:15 98.0 78 20 106/58 (74) 98 BiPAP/CPAP 98.0 04/04/19 16:04 93 Nasal Cannula 2.0 04/04/19 15:00 97.8 81 18 97/71 (80) 94 Nasal Cannula 3.0 97.8 04/04/19 11:00 97.7 76 16 126/71 (89) 97 Nasal Cannula 3.0 97.7 04/04/19 08:16 98 BiPAP/CPAP 04/04/19 08:00 Nasal Cannula 3.0 04/04/19 07:00 97.4 75 20 105/57 (73) 100 Nasal Cannula 30.0 97.4 Laboratory Laboratory Laboratory Tests Test 04/04/19 15:00 04/05/19 03:30 04/05/19 04:30 Vitamin B12 Level > 2000 pg/mL (247-911) Rapid Plasma Reagin Non reactive (Non Reactive) Sodium Level 135 mmol/L (136-145) Potassium Level 4.2 mmol/L (3.5-5.1) Chloride Level 100 mmol/L (98-107) Carbon Dioxide Level 17 mmol/L (21-32) Anion Gap 18 (6-14) Blood Urea Nitrogen 45 mg/dL (7-20) Creatinine 2.3 mg/dL (0.6-1.0) Estimated GFR (Cockcroft-Gault) 26.6 BUN/Creatinine Ratio 20 (6-20) Glucose Level 76 mg/dL (70-99) Calcium Level 8.1 mg/dL (8.5-10.1) Total Bilirubin 0.3 mg/dL (0.2-1.0) Aspartate Amino Transf (AST/SGOT) 34 U/L (15-37) Alanine Aminotransferase (ALT/SGPT) 20 U/L (14-59) Alkaline Phosphatase 123 U/L (46-116) Total Protein 6.9 g/dL (6.4-8.2) Albumin 2.5 g/dL (3.4-5.0) Albumin/Globulin Ratio 0.6 (1.0-1.7) White Blood Count 7.5 x10^3/uL (4.0-11.0) Red Blood Count 3.66 x10^6/uL (3.50-5.40) Hemoglobin 10.3 g/dL (12.0-15.5) Hematocrit 31.4 % (36.0-47.0) Mean Corpuscular Volume 86 fL (79-100) Mean Corpuscular Hemoglobin 28 pg (25-35) Mean Corpuscular Hemoglobin Concent 33 g/dL (31-37) Red Cell Distribution Width 18.2 % (11.5-14.5) Platelet Count 302 x10^3/uL (140-400) Medication Medications Current Medications Amlodipine Besylate (Norvasc) 10 mg DAILY PO ; Start 04/05/19 at 10:30 Aspirin (Ecotrin) 81 mg DAILY PO ; Start 04/05/19 at 10:30 Budesonide (Pulmicort) 0.5 mg RTBID NEB ; Start 04/05/19 at 10:30 Ergocalciferol (Vitamin D2) 50,000 unit WEEKLY PO ; Start 04/12/19 at 09:00 Estradiol (Estrace) 1 mg DAILY PO ; Start 04/05/19 at 10:30 Influenza Virus Vaccine Quadrival (Afluria Quad 2019-20 (3yr Up) Syringe) 0.5 ml ONCE ONCE VAX IM ; Start 04/05/19 at 09:00; Stop 04/05/19 at 09:01; Status DC Lactobacillus Rhamnosus (Culturelle) 1 cap BID PO Last administered on 04/05/19at 08:30; Start 04/04/19 at 21:00 Micafungin Sodium 100 mg/Dextrose 100 ml @ 100 mls/hr Q24H IV Last administered on 04/04/19at 16:04; Start 04/04/19 at 16:00; Stop 04/06/19 at 15:59 Montelukast Sodium (Singulair) 10 mg HS PO ; Start 04/05/19 at 21:00 Nystatin (Mycostatin) 1 gene BID TP Last administered on 04/05/19at 08:30; Start 04/04/19 at 21:00 Nystatin (Nystatin Oral Susp) 5 ml QID PO ; Start 04/05/19 at 10:30 Nystatin (Nystop) 1 gene PRN QID PRN TP irritation; Start 04/05/19 at 10:00 Senna/Docusate Sodium (Senna Plus) 1 tab BID PO ; Start 04/05/19 at 10:30 Comment Review of Relevant I have reviewed the following items samira (where applicable) has been applied. JO CORNEJO MD Apr 05, 2019 13:35
[2019-04-05 15:00] VITALS: BP 138/70
[2019-04-05] MEDS: ASPIRIN ENTERIC COATED 81 MG TABLET.DR. PO SCH (17:23)
[2019-04-05] MEDS: amLODIPine BESYLATE 10 MG TABLET PO SCH (17:24)
[2019-04-05] MEDS: ESTRADIOL 1 MG TABLET. PO SCH (17:24)
[2019-04-05] MEDS: MICAFUNGIN 100 MG in IV DEXTROSE 5% 100ML 100 ML IV SCH (17:25)
[2019-04-05 19:20] VITALS: BP 132/72
[2019-04-05] MEDS: MONTELUKAST SODIUM 10 MG TABLET. PO SCH (21:20)
[2019-04-05 22:50] VITALS: BP 124/59
[2019-04-06 03:20] VITALS: BP 138/79
[2019-04-06] MEDS: IV NORMAL SALINE 1000ML BAG 1,000 ML IV SCH (03:30)
[2019-04-06 04:15] LABS: BASO % 1 % (0-3); EOS # 0.1 x10^3/uL (0.0-0.7); EOS % 1 % (0-3); HEMATOCRIT 34.1 % (36.0-47.0); HEMOGLOBIN 11.1 g/dL (12.0-15.5); LYMPH # 1.2 x10^3/uL (1.0-4.8); LYMPH % 14 % (24-48); MEAN CORPUSCULAR HEMOGLOBIN 28 pg (25-35); MEAN CORPUSCULAR HGB CONC 33 g/dL (31-37); MEAN CORPUSCULAR VOLUME 86 fL (79-100); MONO # 0.9 x10^3/uL (0.0-1.1); MONO % 11 % (0-9); NEUT # 6.1 x10^3/uL (1.8-7.7); NEUT % 73 % (31-73); PLATELET COUNT 340 x10^3/uL (140-400); RED BLOOD COUNT 3.99 x10^6/uL (3.50-5.40); RED CELL DISTRIBUTION WIDTH 18.5 % (11.5-14.5); WHITE BLOOD COUNT 8.3 x10^3/uL (4.0-11.0)
[2019-04-06 04:41] LABS: CALCIUM 8.6 mg/dL (8.5-10.1); GFR 69.7; POTASSIUM 3.7 mmol/L (3.5-5.1)
[2019-04-06] MEDS: ONDANSETRON PF 4 MG/2 ML VIAL. IVP PRN (06:38)
[2019-04-06 07:00] VITALS: BP 137/85
[2019-04-06] MEDS: IPRATRPIUM/ALBUTEROL 0.5/2.5MG 3 ML NEBU. NEB SCH ×4 (07:57→19:44)
[2019-04-06] MEDS: BUDESONIDE 0.5 MG/2 ML NEBU. NEB SCH ×3 (07:58→19:44)
--- NOTE | 2019-04-06 08:55 | PDOC ---
Infectious Disease Note Subjective Subjective c/o diarrhea and burning type abdominal pain Denies F/C/N/V O2 down to 1.5 L Denies F/C/SOA/HORN ROS ROS per HPI Vital Sign Vital Signs Vital Signs Date Time Temp Pulse Resp B/P (MAP) Pulse Ox O2 Delivery O2 Flow Rate FiO2 04/06/19 07:00 97.9 98 18 137/85 (102) 99 Nasal Cannula 2.0 97.9 Physical Exam PHYSICAL EXAM GENERAL: Sitting on the commode, alert, NAD HEENT: Pupils equally round, reactive. Normal conjunctivae. Oropharynx pink and moist. Small ulcer, lateral left side of tongue. NECK: Supple, no nuchal rigidity. LUNGS: Clear to auscultation. HEART: S1 and S2. ABDOMEN: Obese, soft, nontender with bowel sounds present. EXTREMITIES: Trace edema in lower extremities bilaterally. No cyanosis. SKIN: Warm to touch. No signs of rash. NEUROLOGIC: Alert, answering questions appropriately, moving all extremities. Improved LE strength Labs Lab Laboratory Tests Test 04/06/19 04:00 White Blood Count 8.3 x10^3/uL (4.0-11.0) Red Blood Count 3.99 x10^6/uL (3.50-5.40) Hemoglobin 11.1 g/dL (12.0-15.5) Hematocrit 34.1 % (36.0-47.0) Mean Corpuscular Volume 86 fL (79-100) Mean Corpuscular Hemoglobin 28 pg (25-35) Mean Corpuscular Hemoglobin Concent 33 g/dL (31-37) Red Cell Distribution Width 18.5 % (11.5-14.5) Platelet Count 340 x10^3/uL (140-400) Neutrophils (%) (Auto) 73 % (31-73) Lymphocytes (%) (Auto) 14 % (24-48) Monocytes (%) (Auto) 11 % (0-9) Eosinophils (%) (Auto) 1 % (0-3) Basophils (%) (Auto) 1 % (0-3) Neutrophils # (Auto) 6.1 x10^3/uL (1.8-7.7) Lymphocytes # (Auto) 1.2 x10^3/uL (1.0-4.8) Monocytes # (Auto) 0.9 x10^3/uL (0.0-1.1) Eosinophils # (Auto) 0.1 x10^3/uL (0.0-0.7) Basophils # (Auto) 0.0 x10^3/uL (0.0-0.2) Sodium Level 145 mmol/L (136-145) Potassium Level 3.7 mmol/L (3.5-5.1) Chloride Level 109 mmol/L (98-107) Carbon Dioxide Level 25 mmol/L (21-32) Anion Gap 11 (6-14) Blood Urea Nitrogen 20 mg/dL (7-20) Creatinine 1.0 mg/dL (0.6-1.0) Estimated GFR (Cockcroft-Gault) 69.7 Glucose Level 98 mg/dL (70-99) Calcium Level 8.6 mg/dL (8.5-10.1) Objective Assessment Acute encephalopathy and abnormal CT head concerning for herpetic encephalitis, improving. MRI negative Multifocal pulmonary infiltrates, CT chest c/w pneumonia Leukocytosis - improved Oral ulcer Vulvovaginitis Diarrhea NAY on CKD, improving Hyponatremia (NA 126), improving Involuntary jerking. EEG done Morbid obesity Hypertension History of syphilis with treatment. RPR nonreactive, 04/04 History of atrial fibrillation. Plan Plan of Care cont Rocephin to po soon Azithromycin x 3 doses, last dose today Off Acyclovir Micafungin total 2 doses Nystatin cream perineal area f/u am labs Supportive care D/w nursing Will d/c rocephin and f/u lab results D/w nursing Attending Co-Sign Attending Co-Sign The patient was seen and interviewed as well as examined at the bedside. The chart was reviewed. The case was discussed. Agree with the plan of care. CATARINA RAZA APRN Apr 06, 2019 08:55 ORLY LINDSEY MD Apr 06, 2019 15:16
[2019-04-06] MEDS: SENNOSIDES/DOCUSATE 8.6/50MG TABLET. PO SCH ×2 (09:00→21:00)
[2019-04-06] MEDS: ESTRADIOL 1 MG TABLET. PO SCH (09:02)
[2019-04-06] MEDS: LACTOBACILLUS RHAMNOSUS GG 1 CAPSULE. PO SCH ×2 (09:02→21:28)
[2019-04-06] MEDS: amLODIPine BESYLATE 10 MG TABLET PO SCH (09:02)
[2019-04-06] MEDS: ASPIRIN ENTERIC COATED 81 MG TABLET.DR. PO SCH (09:02)
[2019-04-06] MEDS: NYSTATIN 100,000 UNITS/ML 5 ML ORAL.SUSP. PO SCH ×4 (09:03→21:26)
[2019-04-06] MEDS: NYSTATIN 100,000 UNIT/GM TOPICAL CREAM 15GM TUBE. TP SCH ×2 (09:03→21:32)
[2019-04-06] MEDS ORDERED: AZITHROMYCIN 250 MG TABLET. PO ONE (10:00)
--- NOTE | 2019-04-06 10:00 | PDOC ---
PROGRESS NOTES Subjective Subjective feels much better today Objective Objective Vital Signs Date Time Temp Pulse Resp B/P (MAP) Pulse Ox O2 Delivery O2 Flow Rate FiO2 04/06/19 09:02 98 137/85 04/06/19 07:00 97.9 18 99 Nasal Cannula 2.0 97.9 Intake and Output 04/06/19 07:00 Intake Total 1400 ml Output Total 3400 ml Balance -2000 ml Intake Oral 1400 ml Output Urine Total 3400 ml # Bowel Movements 7 Physical Exam Abdomen: Normal bowel sounds, Soft Heart: Regular rate, Normal S1, Normal S2 Extremities: No clubbing HEENT: Atraumatic Lungs: Normal air movement Neck: Supple Neuro: Normal speech Psych/Mental Status: Mood NL Skin: No breakdown Assessment Assessment IMPRESSION: 1. ?Acute encephalopathy and abnormal CT head concerning for herpetic encephalitis.MRI neg 2. Multifocal pulmonary infiltrates, pneumonia cannot be ruled out. CT chest multi lobar pneumonia pneumonia 3. Leukocytosis, improved. 4. Oral ulcer. 5. Vulvovaginitis. 6. Acute kidney injury on chronic kidney disease. 7. Hyponatremia. 8. Involuntary jerking. 9. Morbid obesity. 10. Hypertension. 11. History of syphilis with treatment. 12. History of atrial fibrillation. PLAN:MRI -neg RPR neg cr1.0 trending down clinically improving. wbc normal. spoke with Pulmonary ID manging antibiotics Comment Review of Relevant I have reviewed the following items samira (where applicable) has been applied. Labs Laboratory Tests Test 04/06/19 04:00 White Blood Count 8.3 x10^3/uL (4.0-11.0) Red Blood Count 3.99 x10^6/uL (3.50-5.40) Hemoglobin 11.1 g/dL (12.0-15.5) Hematocrit 34.1 % (36.0-47.0) Mean Corpuscular Volume 86 fL (79-100) Mean Corpuscular Hemoglobin 28 pg (25-35) Mean Corpuscular Hemoglobin Concent 33 g/dL (31-37) Red Cell Distribution Width 18.5 % (11.5-14.5) Platelet Count 340 x10^3/uL (140-400) Neutrophils (%) (Auto) 73 % (31-73) Lymphocytes (%) (Auto) 14 % (24-48) Monocytes (%) (Auto) 11 % (0-9) Eosinophils (%) (Auto) 1 % (0-3) Basophils (%) (Auto) 1 % (0-3) Neutrophils # (Auto) 6.1 x10^3/uL (1.8-7.7) Lymphocytes # (Auto) 1.2 x10^3/uL (1.0-4.8) Monocytes # (Auto) 0.9 x10^3/uL (0.0-1.1) Eosinophils # (Auto) 0.1 x10^3/uL (0.0-0.7) Basophils # (Auto) 0.0 x10^3/uL (0.0-0.2) Sodium Level 145 mmol/L (136-145) Potassium Level 3.7 mmol/L (3.5-5.1) Chloride Level 109 mmol/L (98-107) Carbon Dioxide Level 25 mmol/L (21-32) Anion Gap 11 (6-14) Blood Urea Nitrogen 20 mg/dL (7-20) Creatinine 1.0 mg/dL (0.6-1.0) Estimated GFR (Cockcroft-Gault) 69.7 Glucose Level 98 mg/dL (70-99) Calcium Level 8.6 mg/dL (8.5-10.1) Medications Current Medications Amlodipine Besylate (Norvasc) 10 mg DAILY PO Last administered on 04/06/19at 09:02; Start 04/05/19 at 10:30 Aspirin (Ecotrin) 81 mg DAILY PO Last administered on 04/06/19at 09:02; Start 04/05/19 at 10:30 Azithromycin (Zithromax) 500 mg 1X ONCE PO ; Start 04/06/19 at 10:00; Stop 04/06/19 at 10:01 Budesonide (Pulmicort) 0.5 mg RTBID NEB Last administered on 04/05/19at 19:42; Start 04/05/19 at 10:30 Ergocalciferol (Vitamin D2) 50,000 unit WEEKLY PO ; Start 04/12/19 at 09:00 Estradiol (Estrace) 1 mg DAILY PO Last administered on 04/06/19at 09:02; Start 04/05/19 at 10:30 Loperamide HCl (Imodium) 2 mg PRN Q15MIN PRN PO DIARRHEA; Start 04/06/19 at 10:00; Status UNV Montelukast Sodium (Singulair) 10 mg HS PO Last administered on 04/05/19at 21:20; Start 04/05/19 at 21:00 Nystatin (Nystatin Oral Susp) 5 ml QID PO Last administered on 04/06/19at 09:03; Start 04/05/19 at 10:30 Nystatin (Nystop) 1 gene PRN QID PRN TP irritation; Start 04/05/19 at 10:00 Ondansetron HCl (Zofran) 4 mg PRN Q6HRS PRN IVP NAUSEA/VOMITING 1ST CHOICE Last administered on 04/06/19at 06:38; Start 04/06/19 at 06:30 Senna/Docusate Sodium (Senna Plus) 1 tab BID PO Last administered on 04/05/19at 21:20; Start 04/05/19 at 10:30 Vitals/I & O Vital Sign - Last 24 Hours 04/05/19 04/05/19 04/05/19 04/05/19 11:00 15:00 15:20 17:24 Temp 98.7 98.3 98.7 98.3 Pulse 90 96 96 Resp 20 22 B/P (MAP) 151/75 (100) 138/70 (92) 138/70 Pulse Ox 96 95 96 O2 Delivery Nasal Cannula Nasal Cannula Nasal Cannula O2 Flow Rate 2.0 2.0 2.0 04/05/19 04/05/19 04/05/19 04/05/19 19:20 19:42 20:00 22:50 Temp 97.8 98.8 97.8 98.8 Pulse 87 93 Resp 18 20 B/P (MAP) 132/72 (92) 124/59 (80) Pulse Ox 93 96 93 O2 Delivery Nasal Cannula Nasal Cannula Room Air Nasal Cannula O2 Flow Rate 2.0 2.0 2.0 2.0 04/06/19 04/06/19 04/06/19 04/06/19 00:05 02:35 03:20 05:05 Temp 98.7 98.7 Pulse 92 Resp 22 B/P (MAP) 138/79 (98) Pulse Ox 98 O2 Delivery BiPAP/CPAP BiPAP/CPAP BiPAP/CPAP BiPAP/CPAP 04/06/19 04/06/19 07:00 09:02 Temp 97.9 97.9 Pulse 98 98 Resp 18 B/P (MAP) 137/85 (102) 137/85 Pulse Ox 99 O2 Delivery Nasal Cannula O2 Flow Rate 2.0 Intake and Output 04/05/19 04/05/19 04/06/19 15:00 23:00 07:00 Intake Total 600 ml 800 ml Output Total 2350 ml 750 ml 300 ml Balance -1750 ml -750 ml 500 ml SHIRIN XIONG MD Apr 06, 2019 10:00
--- NOTE | 2019-04-06 10:00 | PDOC ---
PULMONARY PROGRESS NOTES Subjective feels better cough with yellow sputum, loose stools today Vitals Vital Signs Date Time Temp Pulse Resp B/P (MAP) Pulse Ox O2 Delivery O2 Flow Rate FiO2 04/06/19 09:02 98 137/85 04/06/19 07:00 97.9 18 99 Nasal Cannula 2.0 97.9 ROS: No Chest Pain, No Increase Cough General: Alert, No acute distress Lungs: Other (few rhonchi ant) Cardiovascular: S1 Abdomen: Soft, Non-tender, Other (obese) Neuro Exam: Alert Extremities: Other (trace edema) Labs Laboratory Tests Test 04/04/19 10:50 04/04/19 15:00 04/05/19 03:30 04/05/19 04:30 Urine Color Yellow Urine Clarity Clear Urine pH 5.0 Urine Specific [place] 1.010 Urine Protein Negative mg/dL (NEG-TRACE) Urine Glucose (UA) Negative mg/dL (NEG) Urine Ketones (Stick) Negative mg/dL (NEG) Urine Blood Moderate (NEG) Urine Nitrite Negative (NEG) Urine Bilirubin Negative (NEG) Urine Urobilinogen Dipstick 1.0 mg/dL (0.2 mg/dL) Urine Leukocyte Esterase Trace (NEG) Urine RBC 3-5 /HPF (0-2) Urine WBC 11-20 /HPF (0-4) Urine Squamous Epithelial Cells Occ /LPF Urine Bacteria Few /HPF (0-FEW) Urine Mucus Mod /LPF Urine Opiates Screen Pos (NEG) Urine Methadone Screen Neg (NEG) Urine Barbiturates Neg (NEG) Urine Phencyclidine Screen Neg (NEG) Urine Amphetamine/Methamphetamine Neg (NEG) Urine Benzodiazepines Screen Neg (NEG) Urine Cocaine Screen Neg (NEG) Urine Cannabinoids Screen Neg (NEG) Urine Ethyl Alcohol Neg (NEG) Vitamin B12 Level > 2000 pg/mL (247-911) Rapid Plasma Reagin Non reactive (Non Reactive) Sodium Level 135 mmol/L (136-145) Potassium Level 4.2 mmol/L (3.5-5.1) Chloride Level 100 mmol/L (98-107) Carbon Dioxide Level 17 mmol/L (21-32) Anion Gap 18 (6-14) Blood Urea Nitrogen 45 mg/dL (7-20) Creatinine 2.3 mg/dL (0.6-1.0) Estimated GFR (Cockcroft-Gault) 26.6 BUN/Creatinine Ratio 20 (6-20) Glucose Level 76 mg/dL (70-99) Calcium Level 8.1 mg/dL (8.5-10.1) Total Bilirubin 0.3 mg/dL (0.2-1.0) Aspartate Amino Transf (AST/SGOT) 34 U/L (15-37) Alanine Aminotransferase (ALT/SGPT) 20 U/L (14-59) Alkaline Phosphatase 123 U/L (46-116) Total Protein 6.9 g/dL (6.4-8.2) Albumin 2.5 g/dL (3.4-5.0) Albumin/Globulin Ratio 0.6 (1.0-1.7) White Blood Count 7.5 x10^3/uL (4.0-11.0) Red Blood Count 3.66 x10^6/uL (3.50-5.40) Hemoglobin 10.3 g/dL (12.0-15.5) Hematocrit 31.4 % (36.0-47.0) Mean Corpuscular Volume 86 fL (79-100) Mean Corpuscular Hemoglobin 28 pg (25-35) Mean Corpuscular Hemoglobin Concent 33 g/dL (31-37) Red Cell Distribution Width 18.2 % (11.5-14.5) Platelet Count 302 x10^3/uL (140-400) Test 04/06/19 04:00 White Blood Count 8.3 x10^3/uL (4.0-11.0) Red Blood Count 3.99 x10^6/uL (3.50-5.40) Hemoglobin 11.1 g/dL (12.0-15.5) Hematocrit 34.1 % (36.0-47.0) Mean Corpuscular Volume 86 fL (79-100) Mean Corpuscular Hemoglobin 28 pg (25-35) Mean Corpuscular Hemoglobin Concent 33 g/dL (31-37) Red Cell Distribution Width 18.5 % (11.5-14.5) Platelet Count 340 x10^3/uL (140-400) Neutrophils (%) (Auto) 73 % (31-73) Lymphocytes (%) (Auto) 14 % (24-48) Monocytes (%) (Auto) 11 % (0-9) Eosinophils (%) (Auto) 1 % (0-3) Basophils (%) (Auto) 1 % (0-3) Neutrophils # (Auto) 6.1 x10^3/uL (1.8-7.7) Lymphocytes # (Auto) 1.2 x10^3/uL (1.0-4.8) Monocytes # (Auto) 0.9 x10^3/uL (0.0-1.1) Eosinophils # (Auto) 0.1 x10^3/uL (0.0-0.7) Basophils # (Auto) 0.0 x10^3/uL (0.0-0.2) Sodium Level 145 mmol/L (136-145) Potassium Level 3.7 mmol/L (3.5-5.1) Chloride Level 109 mmol/L (98-107) Carbon Dioxide Level 25 mmol/L (21-32) Anion Gap 11 (6-14) Blood Urea Nitrogen 20 mg/dL (7-20) Creatinine 1.0 mg/dL (0.6-1.0) Estimated GFR (Cockcroft-Gault) 69.7 Glucose Level 98 mg/dL (70-99) Calcium Level 8.6 mg/dL (8.5-10.1) Laboratory Tests Test 04/06/19 04:00 White Blood Count 8.3 x10^3/uL (4.0-11.0) Red Blood Count 3.99 x10^6/uL (3.50-5.40) Hemoglobin 11.1 g/dL (12.0-15.5) Hematocrit 34.1 % (36.0-47.0) Mean Corpuscular Volume 86 fL (79-100) Mean Corpuscular Hemoglobin 28 pg (25-35) Mean Corpuscular Hemoglobin Concent 33 g/dL (31-37) Red Cell Distribution Width 18.5 % (11.5-14.5) Platelet Count 340 x10^3/uL (140-400) Neutrophils (%) (Auto) 73 % (31-73) Lymphocytes (%) (Auto) 14 % (24-48) Monocytes (%) (Auto) 11 % (0-9) Eosinophils (%) (Auto) 1 % (0-3) Basophils (%) (Auto) 1 % (0-3) Neutrophils # (Auto) 6.1 x10^3/uL (1.8-7.7) Lymphocytes # (Auto) 1.2 x10^3/uL (1.0-4.8) Monocytes # (Auto) 0.9 x10^3/uL (0.0-1.1) Eosinophils # (Auto) 0.1 x10^3/uL (0.0-0.7) Basophils # (Auto) 0.0 x10^3/uL (0.0-0.2) Sodium Level 145 mmol/L (136-145) Potassium Level 3.7 mmol/L (3.5-5.1) Chloride Level 109 mmol/L (98-107) Carbon Dioxide Level 25 mmol/L (21-32) Anion Gap 11 (6-14) Blood Urea Nitrogen 20 mg/dL (7-20) Creatinine 1.0 mg/dL (0.6-1.0) Estimated GFR (Cockcroft-Gault) 69.7 Glucose Level 98 mg/dL (70-99) Calcium Level 8.6 mg/dL (8.5-10.1) Medications Active Scripts Medications Dose Route/Sig Max Daily Dose Days Date Category Butrans (Buprenorphine) 1 Each Patch.tdwk 1 Patch TP WEEKLY 04/04/19 Reported Narcan (Naloxone HCl) 4 Mg [place] 4 Mg NS PRN PRN 04/04/19 Reported Breo Ellipta 200-25 Mcg INH (Fluticasone/Vilanterol) 1 Each Blst.w.dev 1 Puff IH DAILY 04/04/19 Reported Tizanidine Hcl 4 Mg Capsule 4 Mg PO TID PRN 04/04/19 Reported Cymbalta (Duloxetine Hcl) 60 Mg Capsule.dr 1 Cap PO DAILY 04/04/19 Reported Furosemide 40 Mg Tablet 1 Tab PO DAILY 04/04/19 Reported Levocetirizine Dihydrochloride 5 Mg Tablet 1 Tab PO QHS 04/04/19 Reported Hydroxychloroquine Sulfate 200 Mg Tablet 200 Mg PO DAILY 04/04/19 Reported Omeprazole 40 Mg Capsule.dr 1 Cap PO DAILY 04/04/19 Reported Chlorzoxazone 500 Mg Tablet 500 Mg PO PRN TID PRN 04/04/19 Reported Estradiol 1 Mg Tablet 1 Tab PO DAILY 04/04/19 Reported Hydroxyzine Pamoate 50 Mg Capsule 50 Mg PO DAILY 04/04/19 Reported Calcium + Vitamin D Tablet (Calcium Carbonate/Vitamin D3) 1 Each Tablet 1 Each PO DAILY 04/04/19 Reported Alendronate Sodium 70 Mg Tablet 1 Tab PO WEEKLY 04/04/19 Reported Ferrous Sulfate 325 Mg Tablet 1 Tab PO DAILY 04/04/19 Reported Nystatin 100,000 Unit/1 Ml Oral.susp 5 Ml PO QID 04/04/19 Reported Nystatin 15 Gm Powder 1 Pat TP QID PRN 04/04/19 Reported Morphine Sulfate Er (Morphine Sulfate) 15 Mg Tablet.er 1 Tab PO BID 04/04/19 Reported Gabapentin 600 Mg Tablet 600 Mg PO BID 04/04/19 Reported Senna-Docusate Sodium Tablet (Sennosides/Docusate Sodium) 1 Each Tablet 1 Each PO BID 04/14/18 Reported Proventil Hfa Inhaler (Albuterol Sulfate) 6.7 Gm Hfa.aer.ad 1 Puff IH PRN Q4HRS PRN 04/05/18 Reported Aspir-Low (Aspirin) 81 Mg Tablet.dr 81 Mg PO 04/05/18 Reported Losartan Potassium 100 Mg Tablet 100 Mg PO DAILY 04/05/18 Reported Amlodipine Besylate 10 Mg Tablet 10 Mg PO DAILY 10/14/16 Reported Montelukast Sodium Tablet (Montelukast Sodium) 10 Mg Tablet 10 Mg PO HS 10/14/16 Reported Vitamin D (Cholecalciferol (Vitamin D3)) 5,000 Unit Tablet 50,000 Unit PO WEEKLY 10/30/15 Reported Sotalol (Sotalol Hcl) 80 Mg Tablet 120 Mg PO BID 10/30/[address] CHEST MULTI-LOBAR PNEUMONIA Impression . 1. Acute hypoxic respiratory failure secondary to bilateral infiltrates due to pneumonia. 2. Abnormal ct chest c/w multi-lobar pneumonia 3. No significant tobacco history. 4. Chronic kidney disease could be an acute component. 5. 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 ID following 6. Underlying obstructive sleep apnea, on CPAP with good compliance at home. 7. Abx associated loose stools Plan . 1. Continue with present oxygen. 2. Antibiotics per Infectious Disease./ loose stools 3. DuoNeb. 4. Noncontrast CT reviewed. c/w pneumonia/ multi-lobar 5. echocardiogram with normal EF 6. DVT prophylaxis. 7. Discussed with RN. 8. Home CPAP qhs d/w CHANTAL Crockett MD Apr 06, 2019 10:00
[2019-04-06] MEDS ORDERED: tiZANidine 4 MG TABLET. PO PRN (10:15)
[2019-04-06] MEDS: LOSARTAN POTASSIUM 50 MG TABLET. PO SCH (10:26)
[2019-04-06] MEDS: LOPERAMIDE 2 MG CAPSULE PO PRN ×2 (10:26→16:15)
[2019-04-06] MEDS: HYDROXYCHLOROQUINE 200 MG TABLET PO SCH (10:27)
[2019-04-06] MEDS: GABAPENTIN 300 MG CAPSULE. PO SCH ×2 (10:28→21:28)
[2019-04-06] MEDS: SOTALOL 80 MG TABLET. PO SCH ×2 (10:28→21:29)
[2019-04-06] MEDS: DULoxetine HCL 30 MG CAPSULE.DR PO SCH (10:28)
[2019-04-06] MEDS: cefTRIAXone IV Push 1 GM VIAL. IVP SCH (10:32)
--- NOTE | 2019-04-06 10:39 | PDOC ---
SUBJECTIVE ROS Stable, OBJECTIVE Vital Signs Vital Signs Date Time Temp Pulse Resp B/P (MAP) Pulse Ox O2 Delivery O2 Flow Rate FiO2 04/06/19 09:02 98 137/85 04/06/19 07:00 97.9 18 99 Nasal Cannula 2.0 97.9 I & 0 Intake and Output 04/06/19 07:00 Intake Total 1400 ml Output Total 3400 ml Balance -2000 ml Intake Oral 1400 ml Output Urine Total 3400 ml # Bowel Movements 7 PHYSICAL EXAM Physical Exam GENERAL: NAD HEEN-O2 by NC NECK: Supple. LUNGS CTA, decreased at bases HEART: RRR ABDOMEN: Obese, Non tender NEUROLOGIC: Alert and oriented EXTREMITIES: Edema 1+ since last week per patient - Zepeda + , No CVA or SP tenderness SKIN- No rash DIAGNOSIS/ASSESSMENT Assessment & Plan NAY - Vasomotor/ ATN 2/2 Dehydration Hx of Vomiting Renal function back to baseline E-Lytes and acid base stable, CKD stage 3- baseline in 2017 (last seen in our office ) 1.1 HypoNa- Normal Na Hypertension On losartan and Lasix per Home med list Hypotensive at initial presentation restart Losartan Abnormal CT scan head - Neurology following Will sign off Fu with our office Post dc (Non urh=grnt Follow up appt) COMMENT/RELEVANT DATA Meds Current Medications Medications (Trade) Dose Ordered Sig/Afshin Start Time Stop Time Status Last Admin Dose Admin Acyclovir Sodium 500 mg/Dextrose 110 ml @ 110 mls/hr Q24H 04/04/19 12:00 04/05/19 16:48 DC 04/04/19 14:39 110 MLS/HR Albuterol Sulfate (Ventolin Neb Soln) 2.5 mg PRN Q4HRS PRN 04/04/19 04:45 Albuterol/ Ipratropium (Duoneb) 3 ml RTQID 04/04/19 08:00 04/05/19 19:42 3 ML Amlodipine Besylate (Norvasc) 10 mg DAILY 04/05/19 10:30 04/06/19 09:02 10 MG Aspirin (Ecotrin) 81 mg DAILY 04/05/19 10:30 04/06/19 09:02 81 MG Azithromycin (Zithromax) 500 mg 1X ONCE 04/06/19 10:00 04/06/19 10:01 DC Azithromycin 500 mg/Sodium Chloride 250 ml @ 250 mls/hr Q24H 04/04/19 10:00 04/05/19 16:48 DC 04/05/19 08:30 250 MLS/HR Budesonide (Pulmicort) 0.5 mg RTBID 04/05/19 10:30 04/05/19 19:42 0.5 MG Ceftriaxone Sodium (Rocephin) 1 gm Q24H 04/04/19 10:00 04/05/19 08:31 1 GM Duloxetine HCl (Cymbalta) 60 mg DAILY 04/06/19 11:00 Ergocalciferol (Vitamin D2) 50,000 unit WEEKLY 04/12/19 09:00 Estradiol (Estrace) 1 mg DAILY 04/05/19 10:30 04/06/19 09:02 1 MG Gabapentin (Neurontin) 600 mg BID 04/06/19 11:00 Hydroxychloroquine Sulfate (Plaquenil) 200 mg DAILY 04/06/19 11:00 Influenza Virus Vaccine Quadrival (Afluria Quad 2019-20 (3yr Up) Syringe) 0.5 ml ONCE ONCE 04/05/19 09:00 04/05/19 09:01 DC Info (FLU VACCINE SCREEN per RX) 1 each PRN DAILY PRN 04/04/19 09:00 Cancel Lactobacillus Rhamnosus (Culturelle) 1 cap BID 04/04/19 21:00 04/06/19 09:02 1 CAP Loperamide HCl (Imodium) 2 mg PRN Q15MIN PRN 04/06/19 10:00 Losartan Potassium (Cozaar) 100 mg DAILY 04/06/19 11:00 Micafungin Sodium 100 mg/Dextrose 100 ml @ 100 mls/hr Q24H 04/04/19 16:00 04/06/19 15:59 04/05/19 17:25 100 MLS/HR Montelukast Sodium (Singulair) 10 mg HS 04/05/19 21:00 04/05/19 21:20 10 MG Morphine Sulfate (Ms Contin) 15 mg BID 04/06/19 11:00 Nystatin (Mycostatin) 1 gene BID 04/04/19 21:00 04/06/19 09:03 1 GENE Nystatin (Nystatin Oral Susp) 5 ml QID 04/05/19 10:30 04/06/19 09:03 5 ML Nystatin (Nystop) 1 gene PRN QID PRN 04/05/19 10:00 Ondansetron HCl (Zofran) 4 mg PRN Q6HRS PRN 04/06/19 06:30 04/06/19 06:38 4 MG Pantoprazole Sodium (Protonix) 40 mg DAILYAC 04/06/19 11:00 Senna/Docusate Sodium (Senna Plus) 1 tab BID 04/05/19 10:30 04/05/19 21:20 1 TAB Sodium Chloride 1,000 ml @ 100 mls/hr Q10H 04/04/19 11:30 04/05/19 17:25 100 MLS/HR Sotalol HCl (Betapace) 120 mg BID 04/06/19 11:00 Tizanidine HCl (Zanaflex) 4 mg PRN Q8HRS PRN 04/06/19 10:15 Lab Laboratory Tests Test 04/06/19 04:00 White Blood Count 8.3 x10^3/uL (4.0-11.0) Red Blood Count 3.99 x10^6/uL (3.50-5.40) Hemoglobin 11.1 g/dL (12.0-15.5) Hematocrit 34.1 % (36.0-47.0) Mean Corpuscular Volume 86 fL (79-100) Mean Corpuscular Hemoglobin 28 pg (25-35) Mean Corpuscular Hemoglobin Concent 33 g/dL (31-37) Red Cell Distribution Width 18.5 % (11.5-14.5) Platelet Count 340 x10^3/uL (140-400) Neutrophils (%) (Auto) 73 % (31-73) Lymphocytes (%) (Auto) 14 % (24-48) Monocytes (%) (Auto) 11 % (0-9) Eosinophils (%) (Auto) 1 % (0-3) Basophils (%) (Auto) 1 % (0-3) Neutrophils # (Auto) 6.1 x10^3/uL (1.8-7.7) Lymphocytes # (Auto) 1.2 x10^3/uL (1.0-4.8) Monocytes # (Auto) 0.9 x10^3/uL (0.0-1.1) Eosinophils # (Auto) 0.1 x10^3/uL (0.0-0.7) Basophils # (Auto) 0.0 x10^3/uL (0.0-0.2) Sodium Level 145 mmol/L (136-145) Potassium Level 3.7 mmol/L (3.5-5.1) Chloride Level 109 mmol/L (98-107) Carbon Dioxide Level 25 mmol/L (21-32) Anion Gap 11 (6-14) Blood Urea Nitrogen 20 mg/dL (7-20) Creatinine 1.0 mg/dL (0.6-1.0) Estimated GFR (Cockcroft-Gault) 69.7 Glucose Level 98 mg/dL (70-99) Calcium Level 8.6 mg/dL (8.5-10.1) Results All relevant outside records, renal labs, imaging studies, telemetry/EKG's were reviewed. SAGE LENZ MD Apr 06, 2019 10:39
[2019-04-06 11:00] VITALS: BP 153/85
[2019-04-06] MEDS: MORPHINE ER 15 MG TABLET.ER PO SCH ×2 (11:00→21:27)
[2019-04-06] MEDS: PANTOPRAZOLE 40 MG TABLET.DR. PO SCH (11:00)
--- NOTE | 2019-04-06 13:34 | NUR ---
SS following up with discharge planning. PT/OT recommended halfway unit. SS met with pt to discuss halfway unit and discharge planning. Pt informed SS that her [place] insurance termed on 04/04/2019 and that she started a new insurance on 04/05/2019. Pt reported that she did not know the name of the insurance and though it may be a Medicaid plan. Pt then informed pt's RN that she though she might have [employer] Gold or Plus. Case management and registration informed of pt's report. Pt reported that she lives in [place] and if she has to go far for rehabilitation then she wants to return to home with home healthcare. SS will await confirmation of pt's insurance and will proceed accordingly.
--- NOTE | 2019-04-06 14:23 | CONS ---
DATE OF CONSULTATION: 04/06/2019 REQUESTING PHYSICIAN: I saw her at the request of Dr. Marin. LOCATION: She is in room 244. HISTORY OF PRESENT ILLNESS: This is a 53-year-old right-handed female on disability, used to work as a CHIEF ADMINISTRATIVE OFFICER, at bedside with biology laboratory assistant. The patient was admitted on 04/04/2019 through the Emergency Room with altered mental status and generalized weakness. She was apparently doing well 2 days prior. She had nausea, vomiting, and difficulty keeping her oral intake, felt dehydrated. The patient takes hydrocodone 7.5/325 mg on an as-needed basis for chronic lower back pain. She was noted in the Emergency Room with mild hypotension. She also takes morphine twice daily for pain control. She complained of no chest pain or shortness of breath. Chest x-ray showed prominent pulmonary infiltrate in the left hemithorax. She also had some infiltrate in the right perihilar region and medial right lung base without any pneumothorax. Because of her altered mental status, she had a CT scan of the brain, which failed to reveal any acute abnormality. MRI scan of the brain also was within normal limits. The patient had CT of the chest done, which revealed patchy airspace opacities identified in the left lower lobe of the lung with consolidation changes identified in the right lower lobe of lung, likely pneumonia. Doppler study of left upper extremity was negative for deep vein thrombosis. The patient admits chronic lower back pain and also admits left shoulder area pain. Her main complaint being loose stools. The patient is being checked for C. diff colitis. The patient is receiving IV antibiotics at present time. She is being followed by Physical Therapy and Occupational Therapy. She walked for about 40 feet with a roller walker. The patient lives in a high-rise apartment with her son. No steps for her to manage. PHYSICAL EXAMINATION: Today revealed a middle-aged female. She is obese, alert, oriented to time, place, person, and circumstance, and follows commands appropriately, moves all 4 extremities voluntarily where she had 4+/5 grade muscle strength. Deep tendon reflexes are decreased overall with absent knee and left ankle jerk, right ankle jerk is 1+. She had equal perception of touch and pinprick sensation bilaterally. She had crepitus on range of motion of her knee joints with mild knee joint effusion. She had painful range of motion of both hip joints. She had some pain on range of motion of left shoulder and tenderness to palpation over left shoulder anterior aspect and also over thoracic and lumbar paraspinal muscles. Straight leg raising test is negative bilaterally. Her skin is intact at this time. She is using oxygen by nasal cannula. She is independent with getting up from chair and she walked using a roller walker without any difficulty. ASSESSMENT: A middle-aged female with chronic lower back pain, status post previous lumbar spine fusion. No clinical evidence of ongoing lumbar radiculopathy. Clinical evidence of degenerative joint disease of knees; tendinitis of the left shoulder; recent hospitalization for pneumonia; altered mental status, improved; known hypertension; atrial fibrillation; chronic kidney disease; morbid obesity; obstructive sleep apnea; asthmatic bronchitis; osteoarthritis; fibromyalgia; episode of malignant hyperthermia; and also severe neck pain radiating to left upper extremity on a previous admission, but she denies any neck pain at present time. The patient is also status post ; laparoscopy; total abdominal hysterectomy; bilateral salpingo-oophorectomy; back surgery twice, done at [facility]; and left knee arthroscopic surgery; KNOWN ALLERGIC TO DARVOCET, LATEX, ADHESIVE TAPE. RECOMMENDATIONS: Agree with the plan for physical therapy and occupational therapy to use physical modality to her back and left shoulder. To consider injecting painful left shoulder and lower back area on an as-needed basis. Dr. Marin, I appreciate asking me to participate in the care of this interesting patient. I will be glad to see her for followup with you on an as-needed basis. CARINA BRUCE MD DR: YADY/meenu JOB#: [id number] / [id number]
[2019-04-06 15:00] VITALS: BP 163/82
--- NOTE | 2019-04-06 15:25 | PDOC ---
PROGRESS NOTES Assessment Assessment Abnormal HCT finding, but no acute abnormality on MRI. Confusion. Generalized weakness Metabolic encephalopathy. AFib. Pneumonia? HTN. Renal failure. Morbid obesity. No evidence of acute CVA or HSV encephalitis. RECOMMENDATIONS/PLAN:. Treat medical diseases. OT/PT. Weight reduction. EEG on 04/04/19: Within normal. Brain MRI on 04/04/19: No acute abnormal findings. HISTORY OF THE PRESENT ILLNESS: This is a 53-y-old AA female patient with above medical diseases has been having mental status changes, confusion and generalized weakness for about 1 week. She was seen in [facility] ER and her HCT was reported questionable bilateral temporal lobe edema, so she was transferred to [facility] for further evaluation. Patient denied recent acute illness. No focalized sensory or motor deficits except generalized weakness. PAST MEDICAL HISTORY: Hypertension, atrial fibrillation, history of CKD, history of morbid obesity, history of obstructive sleep apnea, history of asthma, osteoarthritis, fibromyalgia, history of malignant hyperthermia. PAST SURGERY HISTORY: Gastric bypass surgery in 2004, lost 135 pounds, but she has gained 25 pounds in the last 3 weeks. . ALLERGIES: ACETAMINOPHEN, BACLOFEN, LATEX, and PROPOXYPHENE. MEDICATIONS: Refer to MAR REVIEW OF SYSTEMS: Constitutional: Morbid obesity.. Head: No traumatic brain or head injury. Skin: No edema, or rash. Ear: No infection, tinnitus. Eyes: No vision loss or color blindness. Nose: No bleeding or purulent discharges. Hearing: No hearing decrease. Neck: No injury. Breast: No history of cancer, masses,or discharges. Cardiac: AFib, HTN. Pulmonary: No COPD. GI: No GI ulcer, GI bleeding. Urinary/genital: UTI. Endocrinologic: Diabetes Mellitus. Skeletomuscular: Generalized weakness. Neurological: see HP. Psychiatric: Denies drug use/abuse. Otherwise, not [id number] review of systems. PHYSICAL EXAMINATION: General appearance is in no acute distress. HEENT: Normocephalic and nontraumatic. Eyes, nose, ears, and throat are unremarkable. Neck is supple. No lymphadenopathy. No crepitus. Cardiovascular: S1, S2, regular rate and rhythm. Pulmonary: decreased to auscultation bilaterally. Abdomen: Bowel sounds are positive. Extremities: No rash, lesions, or edema. No restriction of range of motion NEUROLOGICAL EXAMINATION: Awake. Oriented to time, place and person. PERRL. EOMI. CN: no focal findings. Muscle tone: within normal. Muscle strength: 4+ due to obesity. DTR: 0-1 due to obesity. Plantar reflex: Flexor response bilaterally Gait: at her baseline normal. Sensory exam: no abnormal findings. No cerebellar signs elicited. F-T-N test accurate. Objective Objective Vital Signs Date Time Temp Pulse Resp B/P (MAP) Pulse Ox O2 Delivery O2 Flow Rate FiO2 04/06/19 11:55 Nasal Cannula 2.0 04/06/19 11:00 98.0 91 18 153/85 (107) 94 98.0 Intake and Output 04/06/19 07:00 Intake Total 1400 ml Output Total 3400 ml Balance -2000 ml Intake Oral 1400 ml Output Urine Total 3400 ml # Bowel Movements 7 Vitals Signs Vitals VS - Last 72 Hours, by Label Date Time Temp Pulse Resp B/P (MAP) Pulse Ox O2 Delivery O2 Flow Rate FiO2 04/06/19 11:55 Nasal Cannula 2.0 04/06/19 11:00 98.0 91 18 153/85 (107) 94 2.0 98.0 04/06/19 10:28 98 137/85 04/06/19 10:26 98 137/85 04/06/19 09:02 98 137/85 04/06/19 08:00 Room Air 04/06/19 07:00 97.9 98 18 137/85 (102) 99 Nasal Cannula 2.0 97.9 04/06/19 05:05 BiPAP/CPAP 04/06/19 03:20 98.7 92 22 138/79 (98) 98 BiPAP/CPAP 98.7 04/06/19 02:35 BiPAP/CPAP 04/06/19 00:05 BiPAP/CPAP 04/05/19 22:50 98.8 93 20 124/59 (80) 93 Nasal Cannula 2.0 98.8 04/05/19 20:00 Room Air 2.0 04/05/19 19:42 96 Nasal Cannula 2.0 04/05/19 19:20 97.8 87 18 132/72 (92) 93 Nasal Cannula 2.0 97.8 04/05/19 17:24 96 138/70 04/05/19 15:20 96 Nasal Cannula 2.0 04/05/19 15:00 98.3 96 22 138/70 (92) 95 Nasal Cannula 2.0 98.3 04/05/19 11:00 98.7 90 20 151/75 (100) 96 Nasal Cannula 2.0 98.7 04/05/19 08:15 98 Nasal Cannula 2.0 04/05/19 07:50 Bi-pap 3.0 04/05/19 07:00 97.8 95 20 138/69 (92) 98 Nasal Cannula 2.0 97.8 Laboratory Laboratory Laboratory Tests Test 04/06/19 04:00 White Blood Count 8.3 x10^3/uL (4.0-11.0) Red Blood Count 3.99 x10^6/uL (3.50-5.40) Hemoglobin 11.1 g/dL (12.0-15.5) Hematocrit 34.1 % (36.0-47.0) Mean Corpuscular Volume 86 fL (79-100) Mean Corpuscular Hemoglobin 28 pg (25-35) Mean Corpuscular Hemoglobin Concent 33 g/dL (31-37) Red Cell Distribution Width 18.5 % (11.5-14.5) Platelet Count 340 x10^3/uL (140-400) Neutrophils (%) (Auto) 73 % (31-73) Lymphocytes (%) (Auto) 14 % (24-48) Monocytes (%) (Auto) 11 % (0-9) Eosinophils (%) (Auto) 1 % (0-3) Basophils (%) (Auto) 1 % (0-3) Neutrophils # (Auto) 6.1 x10^3/uL (1.8-7.7) Lymphocytes # (Auto) 1.2 x10^3/uL (1.0-4.8) Monocytes # (Auto) 0.9 x10^3/uL (0.0-1.1) Eosinophils # (Auto) 0.1 x10^3/uL (0.0-0.7) Basophils # (Auto) 0.0 x10^3/uL (0.0-0.2) Sodium Level 145 mmol/L (136-145) Potassium Level 3.7 mmol/L (3.5-5.1) Chloride Level 109 mmol/L (98-107) Carbon Dioxide Level 25 mmol/L (21-32) Anion Gap 11 (6-14) Blood Urea Nitrogen 20 mg/dL (7-20) Creatinine 1.0 mg/dL (0.6-1.0) Estimated GFR (Cockcroft-Gault) 69.7 Glucose Level 98 mg/dL (70-99) Calcium Level 8.6 mg/dL (8.5-10.1) Medication Medications Current Medications Azithromycin (Zithromax) 500 mg 1X ONCE PO Last administered on 04/06/19 10:27; Start 04/06/19 at 10:00; Stop 04/06/19 at 10:01; Status DC Diclofenac Sodium (Voltaren) 1 gene BID TP ; Start 04/06/19 at 14:00 Duloxetine HCl (Cymbalta) 60 mg DAILY PO Last administered on 04/06/19 10:28; Start 04/06/19 at 11:00 Ergocalciferol (Vitamin D2) 50,000 unit WEEKLY PO ; Start 04/12/19 at 09:00 Gabapentin (Neurontin) 600 mg BID PO Last administered on 04/06/19at 10:28; Start 04/06/19 at 11:00 Hydroxychloroquine Sulfate (Plaquenil) 200 mg DAILY PO Last administered on 04/06/19 10:27; Start 04/06/19 at 11:00 Loperamide HCl (Imodium) 2 mg PRN Q15MIN PRN PO DIARRHEA Last administered on 04/06/19 10:26; Start 04/06/19 at 10:00 Losartan Potassium (Cozaar) 100 mg DAILY PO Last administered on 04/06/19 10:26; Start 04/06/19 at 11:00 Montelukast Sodium (Singulair) 10 mg HS PO Last administered on 04/05/19at 21:20; Start 04/05/19 at 21:00 Morphine Sulfate (Ms Contin) 15 mg BID PO ; Start 04/06/19 at 11:00 Ondansetron HCl (Zofran) 4 mg PRN Q6HRS PRN IVP NAUSEA/VOMITING 1ST CHOICE Last administered on 04/06/19at 06:38; Start 04/06/19 at 06:30 Pantoprazole Sodium (Protonix) 40 mg DAILYAC PO ; Start 04/06/19 at 11:00 Sotalol HCl (Betapace) 120 mg BID PO Last administered on 04/06/19at 10:28; Start 04/06/19 at 11:00 Tizanidine HCl (Zanaflex) 4 mg PRN Q8HRS PRN PO MUSCLE SPASMS; Start 04/06/19 at 10:15 Comment Review of Relevant I have reviewed the following items samira (where applicable) has been applied. JO CORNEJO MD Apr 06, 2019 15:25
[2019-04-06] MEDS: DICLOFENAC SODIUM 1% TOPICAL GEL 100GM TUBE. TP SCH ×2 (16:14→21:32)
[2019-04-06 19:00] VITALS: BP 138/78
[2019-04-06] MEDS: MONTELUKAST SODIUM 10 MG TABLET. PO SCH (21:27)
[2019-04-06 23:00] VITALS: BP 154/96
[2019-04-07 03:00] VITALS: BP 140/77
[2019-04-07] MEDS: ONDANSETRON PF 4 MG/2 ML VIAL. IVP PRN (04:55)
[2019-04-07 07:00] VITALS: BP 147/86
[2019-04-07] MEDS: IPRATRPIUM/ALBUTEROL 0.5/2.5MG 3 ML NEBU. NEB SCH ×4 (08:01→21:29)
[2019-04-07] MEDS: BUDESONIDE 0.5 MG/2 ML NEBU. NEB SCH ×2 (08:01→21:29)
[2019-04-07] MEDS: SENNOSIDES/DOCUSATE 8.6/50MG TABLET. PO SCH ×2 (09:00→21:00)
[2019-04-07] MEDS: DICLOFENAC SODIUM 1% TOPICAL GEL 100GM TUBE. TP SCH ×2 (09:00→21:26)
[2019-04-07] MEDS: NYSTATIN 100,000 UNITS/ML 5 ML ORAL.SUSP. PO SCH ×4 (09:00→21:23)
--- NOTE | 2019-04-07 09:17 | PDOC ---
Infectious Disease Note Subjective Subjective Diarrhea settled down Now having trouble falling asleep Walked some Denies F/C/N/V/SOA O2 down to 1.5 L ROS ROS per HPI Vital Sign Vital Signs Vital Signs Date Time Temp Pulse Resp B/P (MAP) Pulse Ox O2 Delivery O2 Flow Rate FiO2 04/07/19 08:10 95 Nasal Cannula 2.0 04/07/19 07:00 98.4 90 20 147/86 (106) 98.4 Physical Exam PHYSICAL EXAM GENERAL: Sitting in the chair, alert, NAD HEENT: Pupils equally round, reactive. Normal conjunctivae. Oropharynx pink and moist. Small ulcer, lateral left side of tongue. NECK: Supple, no nuchal rigidity. LUNGS: Clear to auscultation. HEART: S1 and S2. ABDOMEN: Obese, soft, nontender with bowel sounds present. EXTREMITIES: Trace edema in lower extremities bilaterally. No cyanosis. SKIN: Warm to touch. No signs of rash. NEUROLOGIC: Alert, answering questions appropriately, moving all extremities. Labs Lab Laboratory Tests Test 04/06/19 09:40 Clostridium difficile Toxin B Gene Negative (Negative) Objective Assessment Acute encephalopathy and abnormal CT head concerning for herpetic encephalitis, improving. MRI negative Multifocal pulmonary infiltrates, CT chest c/w pneumonia Leukocytosis - improved Oral ulcer Vulvovaginitis Diarrhea c. diff neg, 04/06 NAY on CKD, improving Hyponatremia (NA 126), improving Involuntary jerking. EEG done Morbid obesity Hypertension History of syphilis with treatment. RPR nonreactive, 04/04 History of atrial fibrillation. Plan Plan of Care Now off antibiotics PT/OT Supportive care D/w nursing ID to sign off Attending Co-Sign Attending Co-Sign The patient was seen and interviewed as well as examined at the bedside. The chart was reviewed. The case was discussed. Agree with the plan of care. CATARINA RAZA APRN Apr 07, 2019 09:17 ORLY LINDSEY MD Apr 07, 2019 17:24
[2019-04-07] MEDS: LACTOBACILLUS RHAMNOSUS GG 1 CAPSULE. PO SCH ×2 (09:21→21:24)
[2019-04-07] MEDS: amLODIPine BESYLATE 10 MG TABLET PO SCH (09:21)
[2019-04-07] MEDS: GABAPENTIN 300 MG CAPSULE. PO SCH ×2 (09:22→19:56)
[2019-04-07] MEDS: PANTOPRAZOLE 40 MG TABLET.DR. PO SCH (09:22)
[2019-04-07] MEDS: SOTALOL 80 MG TABLET. PO SCH ×2 (09:22→21:24)
[2019-04-07] MEDS: DULoxetine HCL 30 MG CAPSULE.DR PO SCH (09:22)
[2019-04-07] MEDS: ESTRADIOL 1 MG TABLET. PO SCH (09:22)
[2019-04-07] MEDS: LOSARTAN POTASSIUM 50 MG TABLET. PO SCH (09:22)
[2019-04-07] MEDS: ASPIRIN ENTERIC COATED 81 MG TABLET.DR. PO SCH (09:22)
[2019-04-07] MEDS: MORPHINE ER 15 MG TABLET.ER PO SCH ×2 (09:23→19:57)
[2019-04-07] MEDS: HYDROXYCHLOROQUINE 200 MG TABLET PO SCH (09:23)
--- NOTE | 2019-04-07 10:20 | PDOC ---
PROGRESS NOTES Subjective Subjective feels better today Objective Objective Vital Signs Date Time Temp Pulse Resp B/P (MAP) Pulse Ox O2 Delivery O2 Flow Rate FiO2 04/07/19 09:22 90 147/86 04/07/19 08:10 95 Nasal Cannula 2.0 04/07/19 07:00 98.4 20 98.4 Intake and Output 04/07/19 07:00 Intake Total 1000 ml Output Total 707 ml Balance 293 ml Intake Oral 1000 ml Output Urine Total 705 ml Stool Total 2 ml # Bowel Movements 11 Physical Exam Abdomen: Normal bowel sounds, Soft Heart: Regular rate, Normal S1, Normal S2 Extremities: No clubbing HEENT: Atraumatic Lungs: Normal air movement Neck: Supple Neuro: Normal speech Psych/Mental Status: Mood NL Skin: No breakdown Assessment Assessment IMPRESSION: 1. ?Acute encephalopathy and abnormal CT head concerning for herpetic encephalitis.MRI neg 2. Multifocal pulmonary infiltrates, pneumonia cannot be ruled out. CT chest multi lobar pneumonia pneumonia 3. Leukocytosis, improved. 4. Oral ulcer. 5. Vulvovaginitis. 6. Acute kidney injury on chronic kidney disease. 7. Hyponatremia. 8. Involuntary jerking. 9. Morbid obesity. 10. Hypertension. 11. History of syphilis with treatment. 12. History of atrial fibrillation. PLAN:MRI -neg RPR neg cr1.0 trending down clinically improving. wbc normal. spoke with Pulmonary ID manging antibiotics Comment Review of Relevant I have reviewed the following items samira (where applicable) has been applied. Medications Current Medications Diclofenac Sodium (Voltaren) 1 gene BID TP Last administered on 04/06/19 21:32; Start 04/06/19 at 14:00 Duloxetine HCl (Cymbalta) 60 mg DAILY PO Last administered on 04/07/19at 09:22; Start 04/06/19 at 11:00 Ergocalciferol (Vitamin D2) 50,000 unit WEEKLY PO ; Start 04/12/19 at 09:00 Gabapentin (Neurontin) 600 mg BID PO Last administered on 04/07/19at 09:22; Start 04/06/19 at 11:00 Hydroxychloroquine Sulfate (Plaquenil) 200 mg DAILY PO Last administered on 04/07/19at 09:23; Start 04/06/19 at 11:00 Losartan Potassium (Cozaar) 100 mg DAILY PO Last administered on 04/07/19 09:22; Start 04/06/19 at 11:00 Morphine Sulfate (Ms Contin) 15 mg BID PO Last administered on 04/07/19 09:23; Start 04/06/19 at 11:00 Pantoprazole Sodium (Protonix) 40 mg DAILYAC PO Last administered on 04/07/19 09:22; Start 04/06/19 at 11:00 Sotalol HCl (Betapace) 120 mg BID PO Last administered on 04/07/19at 09:22; Start 04/06/19 at 11:00 Vitals/I & O Vital Sign - Last 24 Hours 04/06/19 04/06/19 04/06/19 04/06/19 10:26 10:28 11:00 11:55 Temp 98.0 98.0 Pulse 98 98 91 Resp 18 B/P (MAP) 137/85 137/85 153/85 (107) Pulse Ox 94 O2 Delivery Nasal Cannula O2 Flow Rate 2.0 2.0 04/06/19 04/06/19 04/06/19 04/06/19 15:00 15:44 19:00 19:45 Temp 98.0 98.6 98.0 98.6 Pulse 96 87 Resp 20 16 B/P (MAP) 163/82 (109) 138/78 (98) Pulse Ox 97 95 96 O2 Delivery Nasal Cannula Nasal Cannula Nasal Cannula O2 Flow Rate 2.0 2.0 2.0 04/06/19 04/06/19 04/06/19 04/06/19 19:45 20:00 21:27 21:29 Pulse 87 Resp 24 B/P (MAP) 138/78 Pulse Ox 96 96 O2 Delivery Nasal Cannula Nasal Cannula Room Air O2 Flow Rate 2.0 3.0 2.0 04/06/19 04/07/19 04/07/19 04/07/19 23:00 00:08 02:24 03:00 Temp 98.3 98.4 98.3 98.4 Pulse 80 85 Resp 20 20 20 B/P (MAP) 154/96 (115) 140/77 (98) Pulse Ox 98 98 93 O2 Delivery BiPAP/CPAP Nasal Cannula O2 Flow Rate 2.0 3.0 2.0 04/07/19 04/07/19 04/07/19 04/07/19 07:00 08:00 08:04 08:10 Temp 98.4 98.4 Pulse 90 Resp 20 B/P (MAP) 147/86 (106) Pulse Ox 95 95 95 O2 Delivery Nasal Cannula Nasal Cannula Nasal Cannula O2 Flow Rate 2.0 2.0 2.0 2.0 04/07/19 04/07/19 04/07/19 09:21 09:22 09:22 Pulse 90 90 90 B/P (MAP) 147/86 147/86 147/86 Intake and Output 04/06/19 04/06/19 04/07/19 15:00 23:00 07:00 Intake Total 600 ml 400 ml Output Total 107 ml 300 ml 300 ml Balance 493 ml -300 ml 100 ml SHIRIN XIONG MD Apr 07, 2019 10:20
[2019-04-07 11:00] VITALS: BP 144/76
--- NOTE | 2019-04-07 11:48 | PDOC ---
PULMONARY PROGRESS NOTES Subjective feels better cough with yellow sputum, loose stools BETTER today Vitals Vital Signs Date Time Temp Pulse Resp B/P (MAP) Pulse Ox O2 Delivery O2 Flow Rate FiO2 04/07/19 11:00 98.1 81 20 144/76 (98) 99 2.0 98.1 04/07/19 08:10 Nasal Cannula ROS: No Chest Pain, No Increase Cough General: Alert, No acute distress Lungs: Other (few rhonchi ant) Cardiovascular: S1 Abdomen: Soft, Non-tender, Other (obese) Neuro Exam: Alert Extremities: Other (trace edema) Labs Laboratory Tests Test 04/06/19 04:00 04/06/19 09:40 White Blood Count 8.3 x10^3/uL (4.0-11.0) Red Blood Count 3.99 x10^6/uL (3.50-5.40) Hemoglobin 11.1 g/dL (12.0-15.5) Hematocrit 34.1 % (36.0-47.0) Mean Corpuscular Volume 86 fL (79-100) Mean Corpuscular Hemoglobin 28 pg (25-35) Mean Corpuscular Hemoglobin Concent 33 g/dL (31-37) Red Cell Distribution Width 18.5 % (11.5-14.5) Platelet Count 340 x10^3/uL (140-400) Neutrophils (%) (Auto) 73 % (31-73) Lymphocytes (%) (Auto) 14 % (24-48) Monocytes (%) (Auto) 11 % (0-9) Eosinophils (%) (Auto) 1 % (0-3) Basophils (%) (Auto) 1 % (0-3) Neutrophils # (Auto) 6.1 x10^3/uL (1.8-7.7) Lymphocytes # (Auto) 1.2 x10^3/uL (1.0-4.8) Monocytes # (Auto) 0.9 x10^3/uL (0.0-1.1) Eosinophils # (Auto) 0.1 x10^3/uL (0.0-0.7) Basophils # (Auto) 0.0 x10^3/uL (0.0-0.2) Sodium Level 145 mmol/L (136-145) Potassium Level 3.7 mmol/L (3.5-5.1) Chloride Level 109 mmol/L (98-107) Carbon Dioxide Level 25 mmol/L (21-32) Anion Gap 11 (6-14) Blood Urea Nitrogen 20 mg/dL (7-20) Creatinine 1.0 mg/dL (0.6-1.0) Estimated GFR (Cockcroft-Gault) 69.7 Glucose Level 98 mg/dL (70-99) Calcium Level 8.6 mg/dL (8.5-10.1) Clostridium difficile Toxin B Gene Negative (Negative) Medications Active Scripts Medications Dose Route/Sig Max Daily Dose Days Date Category Butrans (Buprenorphine) 1 Each Patch.tdwk 1 Patch TP WEEKLY 04/04/19 Reported Narcan (Naloxone HCl) 4 Mg Leoma 4 Mg NS PRN PRN 04/04/19 Reported Breo Ellipta 200-25 Mcg INH (Fluticasone/Vilanterol) 1 Each Blst.w.dev 1 Puff IH DAILY 04/04/19 Reported Tizanidine Hcl 4 Mg Capsule 4 Mg PO TID PRN 04/04/19 Reported Cymbalta (Duloxetine Hcl) 60 Mg Capsule.dr 1 Cap PO DAILY 04/04/19 Reported Furosemide 40 Mg Tablet 1 Tab PO DAILY 04/04/19 Reported Levocetirizine Dihydrochloride 5 Mg Tablet 1 Tab PO QHS 04/04/19 Reported Hydroxychloroquine Sulfate 200 Mg Tablet 200 Mg PO DAILY 04/04/19 Reported Omeprazole 40 Mg Capsule.dr 1 Cap PO DAILY 04/04/19 Reported Chlorzoxazone 500 Mg Tablet 500 Mg PO PRN TID PRN 04/04/19 Reported Estradiol 1 Mg Tablet 1 Tab PO DAILY 04/04/19 Reported Hydroxyzine Pamoate 50 Mg Capsule 50 Mg PO DAILY 04/04/19 Reported Calcium + Vitamin D Tablet (Calcium Carbonate/Vitamin D3) 1 Each Tablet 1 Each PO DAILY 04/04/19 Reported Alendronate Sodium 70 Mg Tablet 1 Tab PO WEEKLY 04/04/19 Reported Ferrous Sulfate 325 Mg Tablet 1 Tab PO DAILY 04/04/19 Reported Nystatin 100,000 Unit/1 Ml Oral.susp 5 Ml PO QID 04/04/19 Reported Nystatin 15 Gm Powder 1 Pat TP QID PRN 04/04/19 Reported Morphine Sulfate Er (Morphine Sulfate) 15 Mg Tablet.er 1 Tab PO BID 04/04/19 Reported Gabapentin 600 Mg Tablet 600 Mg PO BID 04/04/19 Reported Senna-Docusate Sodium Tablet (Sennosides/Docusate Sodium) 1 Each Tablet 1 Each PO BID 04/14/18 Reported Proventil Hfa Inhaler (Albuterol Sulfate) 6.7 Gm Hfa.aer.ad 1 Puff IH PRN Q4HRS PRN 04/05/18 Reported Aspir-Low (Aspirin) 81 Mg Tablet. 81 Mg PO 04/05/18 Reported Losartan Potassium 100 Mg Tablet 100 Mg PO DAILY 04/05/18 Reported Amlodipine Besylate 10 Mg Tablet 10 Mg PO DAILY 10/14/16 Reported Montelukast Sodium Tablet (Montelukast Sodium) 10 Mg Tablet 10 Mg PO HS 10/14/16 Reported Vitamin D (Cholecalciferol (Vitamin D3)) 5,000 Unit Tablet 50,000 Unit PO WEEKLY 10/30/15 Reported Sotalol (Sotalol Hcl) 80 Mg Tablet 120 Mg PO BID 10/30/[address] CHEST MULTI-LOBAR PNEUMONIA Impression . 1. Acute hypoxic respiratory failure secondary to bilateral infiltrates due to pneumonia. 2. Abnormal ct chest c/w multi-lobar pneumonia 3. No significant tobacco history. 4. Chronic kidney disease could be an acute component. 5. 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 ID following 6. Underlying obstructive sleep apnea, on CPAP with good compliance at home. 7. Abx associated loose stools Plan . 1. Continue with present oxygen. 2. Antibiotics per Infectious Disease./ loose stools better 3. DuoNeb. 4. Noncontrast CT reviewed. c/w pneumonia/ multi-lobar 5. echocardiogram with normal EF 6. DVT prophylaxis. 7. Discussed with RN. 8. Home CPAP qhs d/w CHANTAL Crockett MD Apr 07, 2019 11:48
--- NOTE | 2019-04-07 12:31 | NUR ---
SS following up with discharge planning. Pt has [employer]. SS met with pt to discuss intermediate unit. Pt requested referral be phoned and faxed to [facility], ; fax [phone]. SS phoned and faxed referral. SS will await acceptance decision and insurance determination and will proceed accordingly with discharge planning.
--- NOTE | 2019-04-07 12:58 | PDOC ---
PROGRESS NOTES Subjective Subjective She feels better with her left shoulder pain using diclofenac gel and would like to have injections to help ease her back pain. Objective Objective Vital Signs Date Time Temp Pulse Resp B/P (MAP) Pulse Ox O2 Delivery O2 Flow Rate FiO2 04/07/19 11:00 98.1 81 20 144/76 (98) 99 2.0 98.1 04/07/19 08:10 Nasal Cannula Intake and Output 04/07/19 07:00 Intake Total 1000 ml Output Total 707 ml Balance 293 ml Intake Oral 1000 ml Output Urine Total 705 ml Stool Total 2 ml # Bowel Movements 11 Physical Exam Physical Exam She is alert,comfortable supine in bed and still had tenderness to palpation over left shoulder and thoracic and lumbar paraspinal muscles. She is walking with roller walker. Plan Plan of Care To consider trigger point injections to low back area,if no medical contraindications. Comment Review of Relevant I have reviewed the following items samira (where applicable) has been applied. Labs Laboratory Tests Test 04/06/19 04:00 04/06/19 09:40 White Blood Count 8.3 x10^3/uL (4.0-11.0) Red Blood Count 3.99 x10^6/uL (3.50-5.40) Hemoglobin 11.1 g/dL (12.0-15.5) Hematocrit 34.1 % (36.0-47.0) Mean Corpuscular Volume 86 fL (79-100) Mean Corpuscular Hemoglobin 28 pg (25-35) Mean Corpuscular Hemoglobin Concent 33 g/dL (31-37) Red Cell Distribution Width 18.5 % (11.5-14.5) Platelet Count 340 x10^3/uL (140-400) Neutrophils (%) (Auto) 73 % (31-73) Lymphocytes (%) (Auto) 14 % (24-48) Monocytes (%) (Auto) 11 % (0-9) Eosinophils (%) (Auto) 1 % (0-3) Basophils (%) (Auto) 1 % (0-3) Neutrophils # (Auto) 6.1 x10^3/uL (1.8-7.7) Lymphocytes # (Auto) 1.2 x10^3/uL (1.0-4.8) Monocytes # (Auto) 0.9 x10^3/uL (0.0-1.1) Eosinophils # (Auto) 0.1 x10^3/uL (0.0-0.7) Basophils # (Auto) 0.0 x10^3/uL (0.0-0.2) Sodium Level 145 mmol/L (136-145) Potassium Level 3.7 mmol/L (3.5-5.1) Chloride Level 109 mmol/L (98-107) Carbon Dioxide Level 25 mmol/L (21-32) Anion Gap 11 (6-14) Blood Urea Nitrogen 20 mg/dL (7-20) Creatinine 1.0 mg/dL (0.6-1.0) Estimated GFR (Cockcroft-Gault) 69.7 Glucose Level 98 mg/dL (70-99) Calcium Level 8.6 mg/dL (8.5-10.1) Clostridium difficile Toxin B Gene Negative (Negative) Medications Current Medications Info (FLU VACCINE SCREEN per RX) 1 each PRN DAILY PRN UNABLE TO RESPOND; Start 04/04/19 at 09:00; Status Cancel Albuterol/ Ipratropium (Duoneb) 3 ml RTQID NEB Last administered on 04/07/19at 08:01; Start 04/04/19 at 08:00 Albuterol Sulfate (Ventolin Neb Soln) 2.5 mg PRN Q4HRS PRN NEB SHORTNESS OF BREATH; Start 04/04/19 at 04:45 Ceftriaxone Sodium (Rocephin) 1 gm Q24H IVP Last administered on 04/06/19at 10:32; Start 04/04/19 at 10:00; Stop 04/06/19 at 15:16; Status DC Azithromycin 250 ml @ 250 mls/hr DAILY IV ; Start 04/04/19 at 09:00; Status UNV Azithromycin 500 mg/Sodium Chloride 250 ml @ 250 mls/hr Q24H IV Last administered on 04/05/19at 08:30; Start 04/04/19 at 10:00; Stop 04/05/19 at 16:48; Status DC Acyclovir Sodium 500 mg/Dextrose 110 ml @ 110 mls/hr Q24H IV Last administered on 04/04/19at 14:39; Start 04/04/19 at 12:00; Stop 04/05/19 at 16:48; Status DC Sodium Chloride 1,000 ml @ 100 mls/hr Q10H IV Last administered on 04/05/19 17:25; Start 04/04/19 at 11:30; Stop 04/06/19 at 13:47; Status DC Influenza Virus Vaccine Quadrival (Afluria Quad 2019-20 (3yr Up) Syringe) 0.5 ml ONCE ONCE VAX IM Last administered on 04/06/19 10:31; Start 04/05/19 at 09:00; Stop 04/05/19 at 09:01; Status DC Lactobacillus Rhamnosus (Culturelle) 1 cap BID PO Last administered on 04/07/19 09:21; Start 04/04/19 at 21:00 Micafungin Sodium 100 mg/Dextrose 100 ml @ 100 mls/hr Q24H IV Last administered on 04/05/19 17:25; Start 04/04/19 at 16:00; Stop 04/06/19 at 15:59; Status DC Nystatin (Mycostatin) 1 pat BID TP Last administered on 04/06/19 21:32; Start 04/04/19 at 21:00 Amlodipine Besylate (Norvasc) 10 mg DAILY PO Last administered on 04/07/19 09:21; Start 04/05/19 at 10:30 Aspirin (Ecotrin) 81 mg DAILY PO Last administered on 04/07/19 09:22; Start 04/05/19 at 10:30 Estradiol (Estrace) 1 mg DAILY PO Last administered on 04/07/19 09:22; Start 04/05/19 at 10:30 Montelukast Sodium (Singulair) 10 mg HS PO Last administered on 04/06/19 21:27; Start 04/05/19 at 21:00 Nystatin (Nystop) 1 pat PRN QID PRN TP irritation; Start 04/05/19 at 10:00 Nystatin (Nystatin Oral Susp) 5 ml QID PO Last administered on 04/06/19 21:26; Start 04/05/19 at 10:30 Senna/Docusate Sodium (Senna Plus) 1 tab BID PO Last administered on 04/05/19 21:20; Start 04/05/19 at 10:30 Ergocalciferol (Vitamin D2) 50,000 unit WEEKLY PO ; Start 04/12/19 at 09:00 Budesonide (Pulmicort) 0.5 mg RTBID NEB Last administered on 04/07/19 08:01; Start 04/05/19 at 10:30 Azithromycin (Zithromax) 500 mg 1X ONCE PO Last administered on 04/06/19 10:27; Start 04/06/19 at 10:00; Stop 04/06/19 at 10:01; Status DC Ondansetron HCl (Zofran) 4 mg PRN Q6HRS PRN IVP NAUSEA/VOMITING 1ST CHOICE Last administered on 04/07/19 04:55; Start 04/06/19 at 06:30 Loperamide HCl (Imodium) 2 mg PRN Q15MIN PRN PO DIARRHEA Last administered on 04/06/19 16:15; Start 04/06/19 at 10:00 Hydroxychloroquine Sulfate (Plaquenil) 200 mg DAILY PO Last administered on 04/07/19 09:23; Start 04/06/19 at 11:00 Morphine Sulfate (Ms Contin) 15 mg BID PO Last administered on 04/07/19 09:23; Start 04/06/19 at 11:00 Sotalol HCl (Betapace) 120 mg BID PO Last administered on 04/07/19 09:22; Start 04/06/19 at 11:00 Duloxetine HCl (Cymbalta) 60 mg DAILY PO Last administered on 04/07/19 09:22; Start 04/06/19 at 11:00 Gabapentin (Neurontin) 600 mg BID PO Last administered on 04/07/19 09:22; Start 04/06/19 at 11:00 Losartan Potassium (Cozaar) 100 mg DAILY PO Last administered on 04/07/19 09:22; Start 04/06/19 at 11:00 Pantoprazole Sodium (Protonix) 40 mg DAILYAC PO Last administered on 04/07/19 09:22; Start 04/06/19 at 11:00 Tizanidine HCl (Zanaflex) 4 mg PRN Q8HRS PRN PO MUSCLE SPASMS; Start 04/06/19 at 10:15 Diclofenac Sodium (Voltaren) 1 pat BID TP Last administered on 04/06/19 21:32; Start 10/2/19 at 14:00 Active Scripts Active Reported Butrans (Buprenorphine) 1 Each Patch.tdwk 1 Patch TP WEEKLY Narcan (Naloxone HCl) 4 Mg Maskell 4 Mg NS PRN PRN Breo Ellipta 200-25 Mcg INH (Fluticasone/Vilanterol) 1 Each Blst.w.dev 1 Puff IH DAILY Tizanidine Hcl 4 Mg Capsule 4 Mg PO TID PRN Cymbalta (Duloxetine Hcl) 60 Mg Capsule.dr 1 Cap PO DAILY Furosemide 40 Mg Tablet 1 Tab PO DAILY Levocetirizine Dihydrochloride 5 Mg Tablet 1 Tab PO QHS Hydroxychloroquine Sulfate 200 Mg Tablet 200 Mg PO DAILY Omeprazole 40 Mg Capsule.dr 1 Cap PO DAILY Chlorzoxazone 500 Mg Tablet 500 Mg PO PRN TID PRN Estradiol 1 Mg Tablet 1 Tab PO DAILY Hydroxyzine Pamoate 50 Mg Capsule 50 Mg PO DAILY Calcium + Vitamin D Tablet (Calcium Carbonate/Vitamin D3) 1 Each Tablet 1 Each PO DAILY Alendronate Sodium 70 Mg Tablet 1 Tab PO WEEKLY Ferrous Sulfate 325 Mg Tablet 1 Tab PO DAILY Nystatin 100,000 Unit/1 Ml Oral.susp 5 Ml PO QID Nystatin 15 Gm Powder 1 Pat TP QID PRN Morphine Sulfate Er (Morphine Sulfate) 15 Mg Tablet.er 1 Tab PO BID Gabapentin 600 Mg Tablet 600 Mg PO BID Senna-Docusate Sodium Tablet (Sennosides/Docusate Sodium) 1 Each Tablet 1 Each PO BID Proventil Hfa Inhaler (Albuterol Sulfate) 6.7 Gm Hfa.aer.ad 1 Puff IH PRN Q4HRS PRN Aspir-Low (Aspirin) 81 Mg Tablet. 81 Mg PO Losartan Potassium 100 Mg Tablet 100 Mg PO DAILY Amlodipine Besylate 10 Mg Tablet 10 Mg PO DAILY Montelukast Sodium Tablet (Montelukast Sodium) 10 Mg Tablet 10 Mg PO HS Vitamin D (Cholecalciferol (Vitamin D3)) 5,000 Unit Tablet 50,000 Unit PO WEEKLY Sotalol (Sotalol Hcl) 80 Mg Tablet 120 Mg PO BID Vitals/I & O Vital Sign - Last 24 Hours 04/06/19 04/06/19 04/06/19 04/06/19 15:00 15:44 19:00 19:45 Temp 98.0 98.6 98.0 98.6 Pulse 96 87 Resp 20 16 B/P (MAP) 163/82 (109) 138/78 (98) Pulse Ox 97 95 96 O2 Delivery Nasal Cannula Nasal Cannula Nasal Cannula O2 Flow Rate 2.0 2.0 2.0 04/06/19 04/06/19 04/06/19 04/06/19 19:45 20:00 21:27 21:29 Pulse 87 Resp 24 B/P (MAP) 138/78 Pulse Ox 96 96 O2 Delivery Nasal Cannula Nasal Cannula Room Air O2 Flow Rate 2.0 3.0 2.0 04/06/19 04/07/19 04/07/19 04/07/19 23:00 00:08 02:24 03:00 Temp 98.3 98.4 98.3 98.4 Pulse 80 85 Resp 20 20 20 B/P (MAP) 154/96 (115) 140/77 (98) Pulse Ox 98 98 93 O2 Delivery BiPAP/CPAP Nasal Cannula O2 Flow Rate 2.0 3.0 2.0 04/07/19 04/07/19 04/07/19 04/07/19 07:00 08:00 08:04 08:10 Temp 98.4 98.4 Pulse 90 Resp 20 B/P (MAP) 147/86 (106) Pulse Ox 95 95 95 O2 Delivery Nasal Cannula Nasal Cannula Nasal Cannula O2 Flow Rate 2.0 2.0 2.0 2.0 04/07/19 04/07/19 04/07/19 04/07/19 09:21 09:22 09:22 11:00 Temp 98.1 98.1 Pulse 90 90 90 81 Resp 20 B/P (MAP) 147/86 147/86 147/86 144/76 (98) Pulse Ox 99 O2 Flow Rate 2.0 Intake and Output 04/06/19 04/06/19 04/07/19 15:00 23:00 07:00 Intake Total 600 ml 400 ml Output Total 107 ml 300 ml 300 ml Balance 493 ml -300 ml 100 ml CARINA BRUCE MD Apr 07, 2019 12:58
--- NOTE | 2019-04-07 13:12 | PDOC ---
PROGRESS NOTES Assessment Assessment Abnormal HCT finding, but no acute abnormality on MRI. Confusion. Generalized weakness Metabolic encephalopathy. AFib. Pneumonia? HTN. Renal failure. Morbid obesity. No evidence of acute CVA or HSV encephalitis. RECOMMENDATIONS/PLAN:. Treat medical diseases. OT/PT. Weight reduction. FU with PCP. EEG on 04/04/19: Within normal. Brain MRI on 04/04/19: No acute abnormal findings. HISTORY OF THE PRESENT ILLNESS: This is a 53-y-old AA female patient with above medical diseases has been having mental status changes, confusion and generalized weakness for about 1 week. She was seen in [facility] ER and her HCT was reported questionable bilateral temporal lobe edema, so she was transferred to [facility] for further evaluation. Patient denied recent acute illness. No focalized sensory or motor deficits except generalized weakness. PAST MEDICAL HISTORY: Hypertension, atrial fibrillation, history of CKD, history of morbid obesity, history of obstructive sleep apnea, history of asthma, osteoarthritis, fibromyalgia, history of malignant hyperthermia. PAST SURGERY HISTORY: Gastric bypass surgery in 2004, lost 135 pounds, but she has gained 25 pounds in the last 3 weeks. . ALLERGIES: ACETAMINOPHEN, BACLOFEN, LATEX, and PROPOXYPHENE. MEDICATIONS: Refer to MAR REVIEW OF SYSTEMS: Constitutional: Morbid obesity.. Head: No traumatic brain or head injury. Skin: No edema, or rash. Ear: No infection, tinnitus. Eyes: No vision loss or color blindness. Nose: No bleeding or purulent discharges. Hearing: No hearing decrease. Neck: No injury. Breast: No history of cancer, masses,or discharges. Cardiac: AFib, HTN. Pulmonary: No COPD. GI: No GI ulcer, GI bleeding. Urinary/genital: UTI. Endocrinologic: Diabetes Mellitus. Skeletomuscular: Generalized weakness. Neurological: see HP. Psychiatric: Denies drug use/abuse. Otherwise, not [id number] review of systems. PHYSICAL EXAMINATION: General appearance is in no acute distress. HEENT: Normocephalic and nontraumatic. Eyes, nose, ears, and throat are unremarkable. Neck is supple. No lymphadenopathy. No crepitus. Cardiovascular: S1, S2, regular rate and rhythm. Pulmonary: decreased to auscultation bilaterally. Abdomen: Bowel sounds are positive. Extremities: No rash, lesions, or edema. No restriction of range of motion NEUROLOGICAL EXAMINATION: Awake. Oriented to time, place and person. PERRL. EOMI. CN: no focal findings. Muscle tone: within normal. Muscle strength: 4+ due to obesity. DTR: 0-1 due to obesity. Plantar reflex: Flexor response bilaterally Gait: able to walk with a walker. Sensory exam: no abnormal findings. No cerebellar signs elicited. F-T-N test accurate. Objective Objective Vital Signs Date Time Temp Pulse Resp B/P (MAP) Pulse Ox O2 Delivery O2 Flow Rate FiO2 04/07/19 11:00 98.1 81 20 144/76 (98) 99 2.0 98.1 04/07/19 08:10 Nasal Cannula Intake and Output 04/07/19 07:00 Intake Total 1000 ml Output Total 707 ml Balance 293 ml Intake Oral 1000 ml Output Urine Total 705 ml Stool Total 2 ml # Bowel Movements 11 Vitals Signs Vitals VS - Last 72 Hours, by Label Date Time Temp Pulse Resp B/P (MAP) Pulse Ox O2 Delivery O2 Flow Rate FiO2 04/07/19 11:00 98.1 81 20 144/76 (98) 99 2.0 98.1 04/07/19 09:22 90 147/86 04/07/19 09:22 90 147/86 04/07/19 09:21 90 147/86 04/07/19 08:10 95 Nasal Cannula 2.0 04/07/19 08:04 95 Nasal Cannula 2.0 04/07/19 08:00 Nasal Cannula 2.0 04/07/19 07:00 98.4 90 20 147/86 (106) 95 2.0 98.4 04/07/19 03:00 98.4 85 20 140/77 (98) 93 2.0 98.4 04/07/19 02:24 20 98 Nasal Cannula 3.0 04/07/19 00:08 BiPAP/CPAP 04/06/19 23:00 98.3 80 20 154/96 (115) 98 2.0 98.3 04/06/19 21:29 87 138/78 04/06/19 21:27 24 96 Room Air 2.0 04/06/19 20:00 Nasal Cannula 3.0 04/06/19 19:45 96 Nasal Cannula 2.0 04/06/19 19:45 96 Nasal Cannula 2.0 04/06/19 19:00 98.6 87 16 138/78 (98) 95 2.0 98.6 04/06/19 15:44 Nasal Cannula 2.0 04/06/19 15:00 98.0 96 20 163/82 (109) 97 Nasal Cannula 98.0 04/06/19 11:55 Nasal Cannula 2.0 04/06/19 11:00 98.0 91 18 153/85 (107) 94 2.0 98.0 04/06/19 10:28 98 137/85 04/06/19 10:26 98 137/85 04/06/19 09:02 98 137/85 04/06/19 08:00 Room Air 04/06/19 07:00 97.9 98 18 137/85 (102) 99 Nasal Cannula 2.0 97.9 Medication Medications Current Medications Diclofenac Sodium (Voltaren) 1 gene BID TP Last administered on 04/06/19at 21:32; Start 04/06/19 at 14:00 Ergocalciferol (Vitamin D2) 50,000 unit WEEKLY PO ; Start 04/12/19 at 09:00 Comment Review of Relevant I have reviewed the following items samira (where applicable) has been applied. JO CORNEJO MD Apr 07, 2019 13:12
[2019-04-07] MEDS: NYSTATIN 100,000 UNIT/GM TOPICAL CREAM 15GM TUBE. TP SCH ×2 (13:59→21:26)
[2019-04-07] MEDS: HYDROcodone/APAP 5/325MG 1 TAB TABLET PO PRN (14:46)
[2019-04-07 15:00] VITALS: BP 157/94
--- NOTE | 2019-04-07 16:12 | RAD ---
Examination: PORTABLE CHEST 1V History: Pneumonia follow-up Comparison/Correlation: 04/04/2019 portable chest x-ray Findings: Portable upright frontal view of the chest was obtained. Postoperative cervical spine fusion is partially seen. Bilateral cervical ribs are noted. Heart size is normal. Pulmonary vasculature is within normal limits. Mild improvement in aeration of the left lung region noted. Subtle right basilar opacity is again noted. There is new right lateral midthoracic discoid atelectasis Impression: Minimal improvement in left upper lung infiltrates. Minimal residual infiltrate. No significant improvement in right medial basilar infiltrate. New discoid atelectasis Electronically signed by: Darwin Yuan MD (04/07/2019 4:10 PM) [facility]
[2019-04-07 19:46] VITALS: BP 143/84
[2019-04-07] MEDS: MONTELUKAST SODIUM 10 MG TABLET. PO SCH (21:23)
[2019-04-07 22:42] VITALS: BP 142/91
[2019-04-08] MEDS: HYDROcodone/APAP 5/325MG 1 TAB TABLET PO PRN ×2 (02:02→15:41)
[2019-04-08 02:12] VITALS: BP 145/88
[2019-04-08 06:00] LABS: BASO % 1 % (0-3); EOS # 0.4 x10^3/uL (0.0-0.7); EOS % 5 % (0-3); HEMATOCRIT 30.8 % (36.0-47.0); LYMPH # 2.1 x10^3/uL (1.0-4.8); LYMPH % 25 % (24-48); MEAN CORPUSCULAR HEMOGLOBIN 28 pg (25-35); MEAN CORPUSCULAR HGB CONC 33 g/dL (31-37); MEAN CORPUSCULAR VOLUME 86 fL (79-100); MONO % 12 % (0-9); NEUT # 4.8 x10^3/uL (1.8-7.7); NEUT % 58 % (31-73); PLATELET COUNT 351 x10^3/uL (140-400); RED BLOOD COUNT 3.59 x10^6/uL (3.50-5.40); RED CELL DISTRIBUTION WIDTH 18.3 % (11.5-14.5); WHITE BLOOD COUNT 8.3 x10^3/uL (4.0-11.0)
[2019-04-08 06:06] LABS: CALCIUM 8.7 mg/dL (8.5-10.1); CREATININE 0.8 mg/dL (0.6-1.0); GFR 90.1
[2019-04-08 07:00] VITALS: BP 158/86
[2019-04-08] MEDS: BUDESONIDE 0.5 MG/2 ML NEBU. NEB SCH (07:41)
[2019-04-08] MEDS: IPRATRPIUM/ALBUTEROL 0.5/2.5MG 3 ML NEBU. NEB SCH ×3 (07:41→15:30)
[2019-04-08] MEDS: NYSTATIN 100,000 UNITS/ML 5 ML ORAL.SUSP. PO SCH ×3 (08:30→18:19)
[2019-04-08] MEDS: ASPIRIN ENTERIC COATED 81 MG TABLET.DR. PO SCH (08:30)
[2019-04-08] MEDS: LACTOBACILLUS RHAMNOSUS GG 1 CAPSULE. PO SCH (08:30)
[2019-04-08] MEDS: ESTRADIOL 1 MG TABLET. PO SCH (08:30)
[2019-04-08] MEDS: LOSARTAN POTASSIUM 50 MG TABLET. PO SCH (08:31)
[2019-04-08] MEDS: MORPHINE ER 15 MG TABLET.ER PO SCH (08:32)
[2019-04-08] MEDS: GABAPENTIN 300 MG CAPSULE. PO SCH (08:33)
[2019-04-08] MEDS: SOTALOL 80 MG TABLET. PO SCH (08:33)
[2019-04-08] MEDS: HYDROXYCHLOROQUINE 200 MG TABLET PO SCH (08:33)
[2019-04-08] MEDS: PANTOPRAZOLE 40 MG TABLET.DR. PO SCH (08:33)
[2019-04-08] MEDS: DULoxetine HCL 30 MG CAPSULE.DR PO SCH (08:33)
[2019-04-08] MEDS: SENNOSIDES/DOCUSATE 8.6/50MG TABLET. PO SCH (08:34)
[2019-04-08] MEDS: amLODIPine BESYLATE 10 MG TABLET PO SCH (08:34)
[2019-04-08] MEDS: DICLOFENAC SODIUM 1% TOPICAL GEL 100GM TUBE. TP SCH (08:35)
--- NOTE | 2019-04-08 09:57 | PDOC ---
PROGRESS NOTES Subjective Subjective going to rehab/snu today Objective Objective Vital Signs Date Time Temp Pulse Resp B/P (MAP) Pulse Ox O2 Delivery O2 Flow Rate FiO2 04/08/19 08:34 82 158/84 04/08/19 08:32 92 Room Air 04/08/19 07:00 98.2 20 2.0 98.2 Intake and Output 04/08/19 07:00 Intake Total 1190 ml Output Total 1400 ml Balance -210 ml Intake Oral 1190 ml Output Urine Total 1400 ml # Voids 2 # Bowel Movements 4 Physical Exam Abdomen: Normal bowel sounds, Soft Heart: Regular rate, Normal S1, Normal S2 Extremities: No clubbing General: Alert, Oriented X3 HEENT: Atraumatic Lungs: Normal air movement Neck: Supple Neuro: Normal speech Psych/Mental Status: Mood NL Skin: No breakdown Assessment Assessment IMPRESSION: 1. ?Acute encephalopathy improved .MRI neg 2. Multifocal pulmonary infiltrates, pneumonia cannot be ruled out. CT chest multi lobar pneumonia pneumonia 3. Leukocytosis, improved. 4. Oral ulcer. 5. Vulvovaginitis. 6. Acute kidney injury on chronic kidney disease. 7. Hyponatremia. 8. Involuntary jerking. 9. Morbid obesity. 10. Hypertension. 11. History of syphilis with treatment. 12. History of atrial fibrillation. PLAN: d/c to SNU/ rehab.today MRI -neg RPR neg cr1.0 trending down pot 3.0 rafat ,replace c diff neg. cxr improving clinically improving. wbc normal. spoke with Pulmonary d/jarett antibiotics Comment Review of Relevant I have reviewed the following items samira (where applicable) has been applied. Labs Laboratory Tests Test 04/08/19 03:39 White Blood Count 8.3 x10^3/uL (4.0-11.0) Red Blood Count 3.59 x10^6/uL (3.50-5.40) Hemoglobin 10.0 g/dL (12.0-15.5) Hematocrit 30.8 % (36.0-47.0) Mean Corpuscular Volume 86 fL (79-100) Mean Corpuscular Hemoglobin 28 pg (25-35) Mean Corpuscular Hemoglobin Concent 33 g/dL (31-37) Red Cell Distribution Width 18.3 % (11.5-14.5) Platelet Count 351 x10^3/uL (140-400) Neutrophils (%) (Auto) 58 % (31-73) Lymphocytes (%) (Auto) 25 % (24-48) Monocytes (%) (Auto) 12 % (0-9) Eosinophils (%) (Auto) 5 % (0-3) Basophils (%) (Auto) 1 % (0-3) Neutrophils # (Auto) 4.8 x10^3/uL (1.8-7.7) Lymphocytes # (Auto) 2.1 x10^3/uL (1.0-4.8) Monocytes # (Auto) 1.0 x10^3/uL (0.0-1.1) Eosinophils # (Auto) 0.4 x10^3/uL (0.0-0.7) Basophils # (Auto) 0.0 x10^3/uL (0.0-0.2) Sodium Level 143 mmol/L (136-145) Potassium Level 3.0 mmol/L (3.5-5.1) Chloride Level 107 mmol/L (98-107) Carbon Dioxide Level 28 mmol/L (21-32) Anion Gap 8 (6-14) Blood Urea Nitrogen 4 mg/dL (7-20) Creatinine 0.8 mg/dL (0.6-1.0) Estimated GFR (Cockcroft-Gault) 90.1 Glucose Level 73 mg/dL (70-99) Calcium Level 8.7 mg/dL (8.5-10.1) Medications Current Medications Acetaminophen/ Hydrocodone Bitart (Lortab 5/325) 1 tab PRN Q6HRS PRN PO PAIN Last administered on 04/08/19at 02:02; Start 04/07/19 at 14:15 Ergocalciferol (Vitamin D2) 50,000 unit WEEKLY PO ; Start 04/12/19 at 09:00 Vitals/I & O Vital Sign - Last 24 Hours 04/07/19 04/07/19 04/07/19 04/07/19 11:00 14:46 15:00 16:05 Temp 98.1 97.6 98.1 97.6 Pulse 81 82 Resp 20 20 B/P (MAP) 144/76 (98) 157/94 (115) Pulse Ox 99 99 96 O2 Delivery Nasal Cannula Nasal Cannula O2 Flow Rate 2.0 2.0 2.0 2.0 04/07/19 04/07/19 04/07/19 04/07/19 19:46 19:57 20:00 21:24 Temp 98.6 98.6 Pulse 81 81 Resp 16 18 B/P (MAP) 143/84 (103) 143/84 Pulse Ox 96 O2 Delivery Nasal Cannula Nasal Cannula O2 Flow Rate 2.0 2.0 2.0 04/07/19 04/07/19 04/07/19 04/07/19 21:30 22:00 22:42 23:58 Temp 98.3 98.3 Pulse 85 Resp 16 18 B/P (MAP) 142/91 (108) Pulse Ox 96 93 93 O2 Delivery Nasal Cannula Nasal Cannula Nasal Cannula Nasal Cannula O2 Flow Rate 2.0 2.0 2.0 2.0 04/08/19 04/08/19 04/08/19 04/08/19 00:20 02:02 02:12 03:05 Temp 98.2 98.2 Pulse 82 Resp 20 20 18 B/P (MAP) 145/88 (107) Pulse Ox 98 92 92 O2 Delivery BiPAP/CPAP Room Air Nasal Cannula Nasal Cannula O2 Flow Rate 2.0 2.0 04/08/19 04/08/19 04/08/19 04/08/19 07:00 07:42 08:31 08:32 Temp 98.2 98.2 Pulse 81 82 Resp 20 B/P (MAP) 158/86 (110) 158/84 Pulse Ox 95 91 92 O2 Delivery Nasal Cannula Room Air Room Air O2 Flow Rate 2.0 04/08/19 04/08/19 08:33 08:34 Pulse 82 82 B/P (MAP) 158/84 158/84 Intake and Output 04/07/19 04/07/19 04/08/19 15:00 23:00 07:00 Intake Total 440 ml 150 ml 600 ml Output Total 875 ml 300 ml 225 ml Balance -435 ml -150 ml 375 ml SHIRIN XIONG MD Apr 08, 2019 09:57
[2019-04-08] MEDS ORDERED: ENOXAPARIN 40 MG/0.4 ML SYRINGE. SQ ONE (10:00)
[2019-04-08] MEDS ORDERED: POTASSIUM CHLORIDE 20 MEQ TABLET.ER. PO ONE ×2 (10:00→14:00)
[2019-04-08] MEDS ORDERED: DICL100G18 TP (10:02)
[2019-04-08] MEDS ORDERED: HYDR-2761 PO (10:02)
[2019-04-08] MEDS ORDERED: LOPE2CAP PO (10:02)
[2019-04-08] MEDS ORDERED: ENOX40DI SQ (10:03)
--- NOTE | 2019-04-08 10:07 | SNU/HH DC ---
DISCHARGE ORDERS DISCHARGE INFORMATION: DISCHARGE DATE: Apr 08, 2019 CONDITION ON DISCHARGE: Stable CODE STATUS: Code Status: Full HALFWAY: SNF STAY <30 DAYS: Yes HOSPICE: HOSPICE: No HOSPICE EVAL & TREAT: No LTAC: ADMIT TO LTAC: Yes POST DISCHARGE ORDERS: ACTIVITY ORDERS: Walk in house WEIGHT BEARING STATUS: Full weight bearing, As tolerated BATHING ORDERS: Shower-keep dressing dry, No Tub Bath until see DIET AFTER DISCHARGE: Low Sodium 2 gm WOUND/INCISION CARE: Ice to area for comfort, Keep wound/cast CDI CHECKS AFTER DISCHARGE: CHECKS AFTER DISCHARGE: Check blood press - daily FOLLOW-UP: PHYSICIAN FOLLOW-UP: pul f/u dr Plummer in 4 weeks ADDITIONAL FOLLOW-UP: cxr weekly for 4 weeks, CT chest in 4 weeks f/u lung infiltrates LAB ORDERS FOR FOLLOW-UP: cbc, cmp thursday and weekly ANTICOAGULATION F/U NEEDED: sq lovenox for 2 weeks Additional Instructions: duoneb qid TREATMENT/EQUIPMENT ORDERS: ADAPTIVE EQUIPMENT NEEDED: None RESPIRATORY EQUIPMENT NEEDED: Oxygen Physical Therapy For: Evalulation/Treatment Occupational Therapy For: Evaluation/Treatment DISCHARGE MEDICATIONS: Home Meds Active Scripts Enoxaparin Sodium (LOVENOX) 40 Mg/0.4 Ml Disp.syrin, 40 MG SQ DAILY for ANTI- COAGULANT for 14 Days, DIS.SYR Prov:SHIRIN XIONG MD 04/08/19 Loperamide Hcl (LOPERAMIDE) 2 Mg Capsule, 2 MG PO PRN Q15MIN PRN for DIARRHEA for 3 Days, CAP Prov:SHIRIN XIONG MD 04/08/19 Hydrocodone Bit/Acetaminophen (HYDROCODONE-APAP 5-325 ) 1 Tab Tablet, 1 TAB PO PRN Q6HRS PRN for PAIN for 30 Days, TAB Prov:SHIRIN XIONG MD 04/08/19 Diclofenac Sodium (VOLTAREN) 100 Gm Gel..gram., 1 DARCIE TP BID for arthrits for 30 Days, #60 EACH Prov:SHIRIN XIONG MD 04/08/19 Reported Medications Naloxone HCl (Narcan) 4 Mg Eugene, 4 MG NS PRN PRN for overdose, SPRAY 04/04/19 Fluticasone/Vilanterol (Breo Ellipta 200-25 Mcg INH) 1 Each Blst.w.dev, 1 PUFF IH DAILY for breathing, INHALER 04/04/19 Tizanidine Hcl (TIZANIDINE HCL) 4 Mg Capsule, 4 MG PO TID PRN for MUSCLE SPASMS, CAP 04/04/19 Duloxetine Hcl (CYMBALTA) 60 Mg Capsule.dr, 1 CAP PO DAILY for pain, #90 CAP 3 Refills 04/04/19 Levocetirizine Dihydrochloride (LEVOCETIRIZINE DIHYDROCHLORIDE) 5 Mg Tablet, 1 TAB PO QHS for allergies, #30 TAB 5 Refills 04/04/19 Hydroxychloroquine Sulfate (HYDROXYCHLOROQUINE SULFATE) 200 Mg Tablet, 200 MG PO DAILY for per Dr, TAB 04/04/19 Omeprazole (OMEPRAZOLE) 40 Mg Capsule.dr, 1 CAP PO DAILY for heartburn, #30 CAP 3 Refills 04/04/19 Chlorzoxazone (CHLORZOXAZONE) 500 Mg Tablet, 500 MG PO PRN TID PRN for MUSCLE PAIN, TAB 04/04/19 Estradiol (ESTRADIOL) 1 Mg Tablet, 1 TAB PO DAILY for supplement, #30 TAB 11 Refills 04/04/19 Calcium Carbonate/Vitamin D3 (CALCIUM + VITAMIN D TABLET) 1 Each Tablet, 1 EACH PO DAILY for supplement, TAB 04/04/19 Alendronate Sodium (ALENDRONATE SODIUM) 70 Mg Tablet, 1 TAB PO WEEKLY for bone health, #4 TAB 3 Refills 04/04/19 Ferrous Sulfate (FERROUS SULFATE) 325 Mg Tablet, 1 TAB PO DAILY for supplement, #30 TAB 3 Refills 04/04/19 Nystatin (NYSTATIN) 100,000 Unit/1 Ml Oral.susp, 5 ML PO QID for thrush, #200 ML 04/04/19 Nystatin (NYSTATIN) 15 Gm Powder, 1 DARCIE TP QID PRN for irritation, #1 BOTTLE 04/04/19 Morphine Sulfate (MORPHINE SULFATE ER) 15 Mg Tablet.er, 1 TAB PO BID for pain, #60 TAB 04/04/19 Gabapentin (GABAPENTIN) 600 Mg Tablet, 600 MG PO BID for NEUROGENIC PAIN, TAB 04/04/19 Albuterol Sulfate (PROVENTIL HFA INHALER) 6.7 Gm Hfa.aer.ad, 1 PUFF IH PRN Q4HRS PRN for FOR ASTHMA, INHALER 0 Refills 04/05/18 Aspirin (ASPIR-LOW) 81 Mg Tablet.dr, 81 MG PO for heart, TAB.SR 04/05/18 Losartan Potassium (LOSARTAN POTASSIUM) 100 Mg Tablet, 100 MG PO DAILY for blood pressure, TAB 04/05/18 Amlodipine Besylate (AMLODIPINE BESYLATE) 10 Mg Tablet, 10 MG PO DAILY for blood pressure, TAB 10/14/16 Montelukast Sodium (MONTELUKAST SODIUM TABLET ) 10 Mg Tablet, 10 MG PO HS for FOR ASTHMA, #30 TAB 0 Refills 10/14/16 Cholecalciferol (Vitamin D3) (VITAMIN D) 5,000 Unit Tablet, 91770 UNIT PO WEEKLY for bone health 10/30/15 Sotalol Hcl (SOTALOL) 80 Mg Tablet, 120 MG PO BID for heart 10/30/15 Discontinued Reported Medications Buprenorphine (BUTRANS) 1 Each Patch.tdwk, 1 PATCH TP WEEKLY for chronic pain, #4 PATCH 04/04/19 Furosemide (FUROSEMIDE) 40 Mg Tablet, 1 TAB PO DAILY for CHF, #30 TAB 5 Refills 04/04/19 Hydroxyzine Pamoate (HYDROXYZINE PAMOATE) 50 Mg Capsule, 50 MG PO DAILY for allergies, CAP 04/04/19 Sennosides/Docusate Sodium (SENNA-DOCUSATE SODIUM TABLET) 1 Each Tablet, 1 EACH PO BID for constipation, #60 TAB 1 Refill 04/14/18 Oxycodone Hcl (OXYCODONE HCL IMMED.RELEASE ) 5 Mg Tablet, 5 MG PO PRN Q4HRS PRN for PAIN, #60 TAB 0 Refills 04/14/18 Methocarbamol (ROBAXIN-750) 750 Mg Tablet, 1 TAB PO TID PRN for muscle spasms, #60 TAB 0 Refills 04/14/18 Fluticasone/Salmeterol (ADVAIR 500-50 DISKUS) 1 Each Disk.w.dev, 1 INH IH BID for lungs, INHALER 04/05/18 Roflumilast (DALIRESP) 500 Mcg Tablet, 500 MCG PO for lungs, TAB 04/05/18 Duloxetine Hcl (CYMBALTA) 20 Mg Capsule.dr, 20 MG PO DAILY, CAP 04/05/18 Furosemide (LASIX) 20 Mg Tablet, 10 MG PO DAILY for fluid, TAB 10/14/16 Omeprazole Magnesium (PRILOSEC OTC) 20 Mg Tablet.dr, 1 TAB PO DAILY for stomach acid, #30 TAB 3 Refills 10/14/16 Estradiol (ESTRADIOL) 2 Mg Tablet, 2 MG PO 10/30/15 Pregabalin (LYRICA) 150 Mg Capsule, 200 MG PO BID for fibromylgia for 30 Days, #78 CAP 0 Refills 10/30/15 Cyanocobalamin (Vitamin B-12) (VITAMIN B-12) 1,000 Mcg Tablet, 1000 MCG SQ Q4WK 10/30/15 SHIRIN XIONG MD Apr 08, 2019 10:07
--- NOTE | 2019-04-08 10:26 | PDOC ---
PULMONARY PROGRESS NOTES Subjective feels better still with loose stools , off abx Vitals Vital Signs Date Time Temp Pulse Resp B/P (MAP) Pulse Ox O2 Delivery O2 Flow Rate FiO2 04/08/19 08:34 82 158/84 04/08/19 08:32 92 Room Air 04/08/19 07:00 98.2 20 2.0 98.2 ROS: No Chest Pain, No Increase Cough General: Alert, No acute distress Lungs: Other (few rhonchi ant) Cardiovascular: S1 Abdomen: Soft, Non-tender, Other (obese) Neuro Exam: Alert Extremities: Other (trace edema) Labs Laboratory Tests Test 04/08/19 03:39 White Blood Count 8.3 x10^3/uL (4.0-11.0) Red Blood Count 3.59 x10^6/uL (3.50-5.40) Hemoglobin 10.0 g/dL (12.0-15.5) Hematocrit 30.8 % (36.0-47.0) Mean Corpuscular Volume 86 fL (79-100) Mean Corpuscular Hemoglobin 28 pg (25-35) Mean Corpuscular Hemoglobin Concent 33 g/dL (31-37) Red Cell Distribution Width 18.3 % (11.5-14.5) Platelet Count 351 x10^3/uL (140-400) Neutrophils (%) (Auto) 58 % (31-73) Lymphocytes (%) (Auto) 25 % (24-48) Monocytes (%) (Auto) 12 % (0-9) Eosinophils (%) (Auto) 5 % (0-3) Basophils (%) (Auto) 1 % (0-3) Neutrophils # (Auto) 4.8 x10^3/uL (1.8-7.7) Lymphocytes # (Auto) 2.1 x10^3/uL (1.0-4.8) Monocytes # (Auto) 1.0 x10^3/uL (0.0-1.1) Eosinophils # (Auto) 0.4 x10^3/uL (0.0-0.7) Basophils # (Auto) 0.0 x10^3/uL (0.0-0.2) Sodium Level 143 mmol/L (136-145) Potassium Level 3.0 mmol/L (3.5-5.1) Chloride Level 107 mmol/L (98-107) Carbon Dioxide Level 28 mmol/L (21-32) Anion Gap 8 (6-14) Blood Urea Nitrogen 4 mg/dL (7-20) Creatinine 0.8 mg/dL (0.6-1.0) Estimated GFR (Cockcroft-Gault) 90.1 Glucose Level 73 mg/dL (70-99) Calcium Level 8.7 mg/dL (8.5-10.1) Laboratory Tests Test 04/08/19 03:39 White Blood Count 8.3 x10^3/uL (4.0-11.0) Red Blood Count 3.59 x10^6/uL (3.50-5.40) Hemoglobin 10.0 g/dL (12.0-15.5) Hematocrit 30.8 % (36.0-47.0) Mean Corpuscular Volume 86 fL (79-100) Mean Corpuscular Hemoglobin 28 pg (25-35) Mean Corpuscular Hemoglobin Concent 33 g/dL (31-37) Red Cell Distribution Width 18.3 % (11.5-14.5) Platelet Count 351 x10^3/uL (140-400) Neutrophils (%) (Auto) 58 % (31-73) Lymphocytes (%) (Auto) 25 % (24-48) Monocytes (%) (Auto) 12 % (0-9) Eosinophils (%) (Auto) 5 % (0-3) Basophils (%) (Auto) 1 % (0-3) Neutrophils # (Auto) 4.8 x10^3/uL (1.8-7.7) Lymphocytes # (Auto) 2.1 x10^3/uL (1.0-4.8) Monocytes # (Auto) 1.0 x10^3/uL (0.0-1.1) Eosinophils # (Auto) 0.4 x10^3/uL (0.0-0.7) Basophils # (Auto) 0.0 x10^3/uL (0.0-0.2) Sodium Level 143 mmol/L (136-145) Potassium Level 3.0 mmol/L (3.5-5.1) Chloride Level 107 mmol/L (98-107) Carbon Dioxide Level 28 mmol/L (21-32) Anion Gap 8 (6-14) Blood Urea Nitrogen 4 mg/dL (7-20) Creatinine 0.8 mg/dL (0.6-1.0) Estimated GFR (Cockcroft-Gault) 90.1 Glucose Level 73 mg/dL (70-99) Calcium Level 8.7 mg/dL (8.5-10.1) Medications Active Scripts Medications Dose Route/Sig Max Daily Dose Days Date Category Butrans (Buprenorphine) 1 Each Patch.tdwk 1 Patch TP WEEKLY 04/04/19 Reported Narcan (Naloxone HCl) 4 Mg [place] 4 Mg NS PRN PRN 04/04/19 Reported Breo Ellipta 200-25 Mcg INH (Fluticasone/Vilanterol) 1 Each Blst.w.dev 1 Puff IH DAILY 04/04/19 Reported Tizanidine Hcl 4 Mg Capsule 4 Mg PO TID PRN 04/04/19 Reported Cymbalta (Duloxetine Hcl) 60 Mg Capsule.dr 1 Cap PO DAILY 04/04/19 Reported Furosemide 40 Mg Tablet 1 Tab PO DAILY 04/04/19 Reported Levocetirizine Dihydrochloride 5 Mg Tablet 1 Tab PO QHS 04/04/19 Reported Hydroxychloroquine Sulfate 200 Mg Tablet 200 Mg PO DAILY 04/04/19 Reported Omeprazole 40 Mg Capsule.dr 1 Cap PO DAILY 04/04/19 Reported Chlorzoxazone 500 Mg Tablet 500 Mg PO PRN TID PRN 04/04/19 Reported Estradiol 1 Mg Tablet 1 Tab PO DAILY 04/04/19 Reported Hydroxyzine Pamoate 50 Mg Capsule 50 Mg PO DAILY 04/04/19 Reported Calcium + Vitamin D Tablet (Calcium Carbonate/Vitamin D3) 1 Each Tablet 1 Each PO DAILY 04/04/19 Reported Alendronate Sodium 70 Mg Tablet 1 Tab PO WEEKLY 04/04/19 Reported Ferrous Sulfate 325 Mg Tablet 1 Tab PO DAILY 04/04/19 Reported Nystatin 100,000 Unit/1 Ml Oral.susp 5 Ml PO QID 04/04/19 Reported Nystatin 15 Gm Powder 1 Pat TP QID PRN 04/04/19 Reported Morphine Sulfate Er (Morphine Sulfate) 15 Mg Tablet.er 1 Tab PO BID 04/04/19 Reported Gabapentin 600 Mg Tablet 600 Mg PO BID 04/04/19 Reported Senna-Docusate Sodium Tablet (Sennosides/Docusate Sodium) 1 Each Tablet 1 Each PO BID 04/14/18 Reported Proventil Hfa Inhaler (Albuterol Sulfate) 6.7 Gm Hfa.aer.ad 1 Puff IH PRN Q4HRS PRN 04/05/18 Reported Aspir-Low (Aspirin) 81 Mg Tablet. 81 Mg PO 04/05/18 Reported Losartan Potassium 100 Mg Tablet 100 Mg PO DAILY 04/05/18 Reported Amlodipine Besylate 10 Mg Tablet 10 Mg PO DAILY 10/14/16 Reported Montelukast Sodium Tablet (Montelukast Sodium) 10 Mg Tablet 10 Mg PO HS 10/14/16 Reported Vitamin D (Cholecalciferol (Vitamin D3)) 5,000 Unit Tablet 50,000 Unit PO WEEKLY 10/30/15 Reported Sotalol (Sotalol Hcl) 80 Mg Tablet 120 Mg PO BID 10/30/[address] CHEST MULTI-LOBAR PNEUMONIA Impression . 1. Acute hypoxic respiratory failure secondary to bilateral infiltrates due to pneumonia. 2. Abnormal ct chest c/w multi-lobar pneumonia 3. No significant tobacco history. 4. Chronic kidney disease could be an acute component. 5. 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 ID following 6. Underlying obstructive sleep apnea, on CPAP with good compliance at home. 7. Abx associated loose stools, off abx now Plan . 1. Continue with present oxygen. 2. off Antibiotics per Infectious Disease./ loose stools 3. DuoNeb. 4. Noncontrast CT reviewed. c/w pneumonia/ multi-lobar 5. echocardiogram with normal EF 6. DVT prophylaxis. 7. Discussed with RN. 8. Home CPAP qhs repeat cxr today CHANTAL CABALLERO MD Apr 08, 2019 10:26
[2019-04-08 11:00] VITALS: BP 162/87
--- NOTE | 2019-04-08 12:15 | NUR ---
SS following up with discharge planning. Pt accepted at [facility]. Discharge orders received for SNU. SS phoned and faxed discharge orders to [facility], ; fax [phone]. SS will await insurance determination and will proceed accordingly with discharge.
--- NOTE | 2019-04-08 12:53 | PDOC ---
PROGRESS NOTES Subjective Subjective She admits low back pain and wants to have it injected. Objective Objective Vital Signs Date Time Temp Pulse Resp B/P (MAP) Pulse Ox O2 Delivery O2 Flow Rate FiO2 04/08/19 11:30 Nasal Cannula 2.0 04/08/19 11:00 98.2 78 20 162/87 (112) 93 98.2 Intake and Output 04/08/19 07:00 Intake Total 1190 ml Output Total 1400 ml Balance -210 ml Intake Oral 1190 ml Output Urine Total 1400 ml # Voids 2 # Bowel Movements 4 Physical Exam Physical Exam She is supine inbed and seems to be in no acute distress and continues with tenderness to palpation over thoracic and lumbar paraspinal muscles and painfully limited ROM of thoracic and lumbar spine. Plan Plan of Care Agree with plans for transfer to SNF when medically stable and to consider trigger point injections to lumbar area if agreeable to . Comment Review of Relevant I have reviewed the following items samira (where applicable) has been applied. Labs Laboratory Tests Test 04/08/19 03:39 White Blood Count 8.3 x10^3/uL (4.0-11.0) Red Blood Count 3.59 x10^6/uL (3.50-5.40) Hemoglobin 10.0 g/dL (12.0-15.5) Hematocrit 30.8 % (36.0-47.0) Mean Corpuscular Volume 86 fL (79-100) Mean Corpuscular Hemoglobin 28 pg (25-35) Mean Corpuscular Hemoglobin Concent 33 g/dL (31-37) Red Cell Distribution Width 18.3 % (11.5-14.5) Platelet Count 351 x10^3/uL (140-400) Neutrophils (%) (Auto) 58 % (31-73) Lymphocytes (%) (Auto) 25 % (24-48) Monocytes (%) (Auto) 12 % (0-9) Eosinophils (%) (Auto) 5 % (0-3) Basophils (%) (Auto) 1 % (0-3) Neutrophils # (Auto) 4.8 x10^3/uL (1.8-7.7) Lymphocytes # (Auto) 2.1 x10^3/uL (1.0-4.8) Monocytes # (Auto) 1.0 x10^3/uL (0.0-1.1) Eosinophils # (Auto) 0.4 x10^3/uL (0.0-0.7) Basophils # (Auto) 0.0 x10^3/uL (0.0-0.2) Sodium Level 143 mmol/L (136-145) Potassium Level 3.0 mmol/L (3.5-5.1) Chloride Level 107 mmol/L (98-107) Carbon Dioxide Level 28 mmol/L (21-32) Anion Gap 8 (6-14) Blood Urea Nitrogen 4 mg/dL (7-20) Creatinine 0.8 mg/dL (0.6-1.0) Estimated GFR (Cockcroft-Gault) 90.1 Glucose Level 73 mg/dL (70-99) Calcium Level 8.7 mg/dL (8.5-10.1) Laboratory Tests Test 04/08/19 03:39 White Blood Count 8.3 x10^3/uL (4.0-11.0) Red Blood Count 3.59 x10^6/uL (3.50-5.40) Hemoglobin 10.0 g/dL (12.0-15.5) Hematocrit 30.8 % (36.0-47.0) Mean Corpuscular Volume 86 fL (79-100) Mean Corpuscular Hemoglobin 28 pg (25-35) Mean Corpuscular Hemoglobin Concent 33 g/dL (31-37) Red Cell Distribution Width 18.3 % (11.5-14.5) Platelet Count 351 x10^3/uL (140-400) Neutrophils (%) (Auto) 58 % (31-73) Lymphocytes (%) (Auto) 25 % (24-48) Monocytes (%) (Auto) 12 % (0-9) Eosinophils (%) (Auto) 5 % (0-3) Basophils (%) (Auto) 1 % (0-3) Neutrophils # (Auto) 4.8 x10^3/uL (1.8-7.7) Lymphocytes # (Auto) 2.1 x10^3/uL (1.0-4.8) Monocytes # (Auto) 1.0 x10^3/uL (0.0-1.1) Eosinophils # (Auto) 0.4 x10^3/uL (0.0-0.7) Basophils # (Auto) 0.0 x10^3/uL (0.0-0.2) Sodium Level 143 mmol/L (136-145) Potassium Level 3.0 mmol/L (3.5-5.1) Chloride Level 107 mmol/L (98-107) Carbon Dioxide Level 28 mmol/L (21-32) Anion Gap 8 (6-14) Blood Urea Nitrogen 4 mg/dL (7-20) Creatinine 0.8 mg/dL (0.6-1.0) Estimated GFR (Cockcroft-Gault) 90.1 Glucose Level 73 mg/dL (70-99) Calcium Level 8.7 mg/dL (8.5-10.1) Medications Current Medications Info (FLU VACCINE SCREEN per RX) 1 each PRN DAILY PRN [facility] UNABLE TO RESPOND; Start 04/04/19 at 09:00; Status Cancel Albuterol/ Ipratropium (Duoneb) 3 ml RTQID NEB Last administered on 04/08/19at 11:26; Start 04/04/19 at 08:00 Albuterol Sulfate (Ventolin Neb Soln) 2.5 mg PRN Q4HRS PRN NEB SHORTNESS OF BREATH; Start 04/04/19 at 04:45 Ceftriaxone Sodium (Rocephin) 1 gm Q24H IVP Last administered on 04/06/19at 10:32; Start 04/04/19 at 10:00; Stop 04/06/19 at 15:16; Status DC Azithromycin 250 ml @ 250 mls/hr DAILY IV ; Start 04/04/19 at 09:00; Status UNV Azithromycin 500 mg/Sodium Chloride 250 ml @ 250 mls/hr Q24H IV Last administered on 04/05/19at 08:30; Start 04/04/19 at 10:00; Stop 04/05/19 at 16:48; Status DC Acyclovir Sodium 500 mg/Dextrose 110 ml @ 110 mls/hr Q24H IV Last administered on 04/04/19at 14:39; Start 04/04/19 at 12:00; Stop 04/05/19 at 16:48; Status DC Sodium Chloride 1,000 ml @ 100 mls/hr Q10H IV Last administered on 04/05/19at 17:25; Start 04/04/19 at 11:30; Stop 04/06/19 at 13:47; Status DC Influenza Virus Vaccine Quadrival (Afluria Quad 2019-20 (3yr Up) Syringe) 0.5 ml ONCE ONCE VAX IM Last administered on 04/06/19 10:31; Start 04/05/19 at 09:00; Stop 04/05/19 at 09:01; Status DC Lactobacillus Rhamnosus (Culturelle) 1 cap BID PO Last administered on 04/08/19 08:30; Start 04/04/19 at 21:00 Micafungin Sodium 100 mg/Dextrose 100 ml @ 100 mls/hr Q24H IV Last administered on 04/05/19 17:25; Start 04/04/19 at 16:00; Stop 04/06/19 at 15:59; Status DC Nystatin (Mycostatin) 1 pat BID TP Last administered on 04/07/19 21:26; Start 04/04/19 at 21:00 Amlodipine Besylate (Norvasc) 10 mg DAILY PO Last administered on 04/08/19 08:34; Start 04/05/19 at 10:30 Aspirin (Ecotrin) 81 mg DAILY PO Last administered on 04/08/19 08:30; Start 04/05/19 at 10:30 Estradiol (Estrace) 1 mg DAILY PO Last administered on 04/08/19 08:30; Start 04/05/19 at 10:30 Montelukast Sodium (Singulair) 10 mg HS PO Last administered on 04/07/19 21:23; Start 04/05/19 at 21:00 Nystatin (Nystop) 1 pat PRN QID PRN TP irritation; Start 04/05/19 at 10:00 Nystatin (Nystatin Oral Susp) 5 ml QID PO Last administered on 04/08/19 08:30; Start 04/05/19 at 10:30 Senna/Docusate Sodium (Senna Plus) 1 tab BID PO Last administered on 04/05/19 21:20; Start 04/05/19 at 10:30 Ergocalciferol (Vitamin D2) 50,000 unit WEEKLY PO ; Start 04/12/19 at 09:00 Budesonide (Pulmicort) 0.5 mg RTBID NEB Last administered on 04/08/19 07:41; Start 04/05/19 at 10:30 Azithromycin (Zithromax) 500 mg 1X ONCE PO Last administered on 04/06/19 10:27; Start 04/06/19 at 10:00; Stop 04/06/19 at 10:01; Status DC Ondansetron HCl (Zofran) 4 mg PRN Q6HRS PRN IVP NAUSEA/VOMITING 1ST CHOICE Last administered on 04/07/19 04:55; Start 04/06/19 at 06:30 Loperamide HCl (Imodium) 2 mg PRN Q15MIN PRN PO DIARRHEA Last administered on 04/06/19 16:15; Start 04/06/19 at 10:00 Hydroxychloroquine Sulfate (Plaquenil) 200 mg DAILY PO Last administered on 04/08/19 08:33; Start 04/06/19 at 11:00 Morphine Sulfate (Ms Contin) 15 mg BID PO Last administered on 04/08/19 08:32; Start 04/06/19 at 11:00 Sotalol HCl (Betapace) 120 mg BID PO Last administered on 04/08/19 08:33; Start 04/06/19 at 11:00 Duloxetine HCl (Cymbalta) 60 mg DAILY PO Last administered on 04/08/19 08:33; Start 04/06/19 at 11:00 Gabapentin (Neurontin) 600 mg BID PO Last administered on 04/08/19 08:33; Start 04/06/19 at 11:00 Losartan Potassium (Cozaar) 100 mg DAILY PO Last administered on 04/08/19 08:31; Start 04/06/19 at 11:00 Pantoprazole Sodium (Protonix) 40 mg DAILYAC PO Last administered on 04/08/19 08:33; Start 04/06/19 at 11:00 Tizanidine HCl (Zanaflex) 4 mg PRN Q8HRS PRN PO MUSCLE SPASMS; Start 04/06/19 at 10:15 Diclofenac Sodium (Voltaren) 1 pat BID TP Last administered on 04/08/19 08:35; Start 04/06/19 at 14:00 Acetaminophen/ Hydrocodone Bitart (Lortab 5/325) 1 tab PRN Q6HRS PRN PO PAIN Last administered on 10/4/19at 02:02; Start 04/07/19 at 14:15 Potassium Chloride (Klor-Con) 40 meq 1X ONCE PO Last administered on 04/08/19at 12:07; Start 04/08/19 at 10:00; Stop 04/08/19 at 10:11; Status DC Potassium Chloride (Klor-Con) 40 meq 1X ONCE PO ; Start 04/08/19 at 14:00; Stop 04/08/19 at 14:01 Enoxaparin Sodium (Lovenox 40mg Syringe) 40 mg 1X ONCE SQ Last administered on 04/08/19at 12:07; Start 04/08/19 at 10:00; Stop 04/08/19 at 10:11; Status DC Active Scripts Active Lovenox (Enoxaparin Sodium) 40 Mg/0.4 Ml Disp.syrin 40 Mg SQ DAILY 14 Days Loperamide (Loperamide Hcl) 2 Mg Capsule 2 Mg PO PRN Q15MIN PRN 3 Days Hydrocodone-Apap 5-325 (Hydrocodone Bit/Acetaminophen) 1 Tab Tablet 1 Tab PO PRN Q6HRS PRN 30 Days Voltaren (Diclofenac Sodium) 100 Gm Gel..gram. 1 Pat TP BID 30 Days Reported Narcan (Naloxone HCl) 4 Mg [place] 4 Mg NS PRN PRN Breo Ellipta 200-25 Mcg INH (Fluticasone/Vilanterol) 1 Each Blst.w.dev 1 Puff IH DAILY Tizanidine Hcl 4 Mg Capsule 4 Mg PO TID PRN Cymbalta (Duloxetine Hcl) 60 Mg Capsule. 1 Cap PO DAILY Levocetirizine Dihydrochloride 5 Mg Tablet 1 Tab PO QHS Hydroxychloroquine Sulfate 200 Mg Tablet 200 Mg PO DAILY Omeprazole 40 Mg Capsule.dr 1 Cap PO DAILY Chlorzoxazone 500 Mg Tablet 500 Mg PO PRN TID PRN Estradiol 1 Mg Tablet 1 Tab PO DAILY Calcium + Vitamin D Tablet (Calcium Carbonate/Vitamin D3) 1 Each Tablet 1 Each PO DAILY Alendronate Sodium 70 Mg Tablet 1 Tab PO WEEKLY Ferrous Sulfate 325 Mg Tablet 1 Tab PO DAILY Nystatin 100,000 Unit/1 Ml Oral.susp 5 Ml PO QID Nystatin 15 Gm Powder 1 Pat TP QID PRN Morphine Sulfate Er (Morphine Sulfate) 15 Mg Tablet.er 1 Tab PO BID Gabapentin 600 Mg Tablet 600 Mg PO BID Proventil Hfa Inhaler (Albuterol Sulfate) 6.7 Gm Hfa.aer.ad 1 Puff IH PRN Q4HRS PRN Aspir-Low (Aspirin) 81 Mg Tablet.dr 81 Mg PO Losartan Potassium 100 Mg Tablet 100 Mg PO DAILY Amlodipine Besylate 10 Mg Tablet 10 Mg PO DAILY Montelukast Sodium Tablet (Montelukast Sodium) 10 Mg Tablet 10 Mg PO HS Vitamin D (Cholecalciferol (Vitamin D3)) 5,000 Unit Tablet 50,000 Unit PO WEEKLY Sotalol (Sotalol Hcl) 80 Mg Tablet 120 Mg PO BID Vitals/I & O Vital Sign - Last 24 Hours 04/07/19 04/07/19 04/07/19 04/07/19 14:46 15:00 16:05 19:46 Temp 97.6 98.6 97.6 98.6 Pulse 82 81 Resp 20 16 B/P (MAP) 157/94 (115) 143/84 (103) Pulse Ox 99 96 96 O2 Delivery Nasal Cannula Nasal Cannula Nasal Cannula O2 Flow Rate 2.0 2.0 2.0 2.0 04/07/19 04/07/19 04/07/19 04/07/19 19:57 20:00 21:24 21:30 Pulse 81 Resp 18 B/P (MAP) 143/84 Pulse Ox 96 O2 Delivery Nasal Cannula Nasal Cannula O2 Flow Rate 2.0 2.0 2.0 04/07/19 04/07/19 04/07/19 04/08/19 22:00 22:42 23:58 00:20 Temp 98.3 98.3 Pulse 85 Resp 16 18 B/P (MAP) 142/91 (108) Pulse Ox 93 93 98 O2 Delivery Nasal Cannula Nasal Cannula Nasal Cannula BiPAP/CPAP O2 Flow Rate 2.0 2.0 2.0 04/08/19 04/08/19 04/08/19 04/08/19 02:02 02:12 03:05 07:00 Temp 98.2 98.2 98.2 98.2 Pulse 82 81 Resp 20 20 18 20 B/P (MAP) 145/88 (107) 158/86 (110) Pulse Ox 92 92 95 O2 Delivery Room Air Nasal Cannula Nasal Cannula Nasal Cannula O2 Flow Rate 2.0 2.0 2.0 04/08/19 04/08/19 04/08/19 04/08/19 07:42 08:00 08:31 08:32 Pulse 82 B/P (MAP) 158/84 Pulse Ox 91 92 O2 Delivery Room Air Room Air Room Air 04/08/19 04/08/19 04/08/19 04/08/19 08:33 08:34 11:00 11:30 Temp 98.2 98.2 Pulse 82 82 78 Resp 20 B/P (MAP) 158/84 158/84 162/87 (112) Pulse Ox 93 O2 Delivery Nasal Cannula Nasal Cannula O2 Flow Rate 2.0 2.0 Intake and Output 04/07/19 04/07/19 04/08/19 15:00 23:00 07:00 Intake Total 440 ml 150 ml 600 ml Output Total 875 ml 300 ml 225 ml Balance -435 ml -150 ml 375 ml CARINA BRUCE MD Apr 08, 2019 12:53
[2019-04-08] MEDS: NYSTATIN 100,000 UNIT/GM TOPICAL CREAM 15GM TUBE. TP SCH (13:10)
--- NOTE | 2019-04-08 13:48 | RAD ---
EXAM: Chest, single view. HISTORY: Pneumonia COMPARISON: 04/07/2019 FINDINGS: There is diffuse central predominant mixed interstitial and alveolar infiltrate. There is no pleural effusion or pneumothorax. There is a stable cardiac silhouette. There is cervical spinal fusion is rotation. There is a right cervical rib. IMPRESSION: Diffuse central predominant mixed interstitial and alveolar infiltrate. This is not appreciably changed compared to the prior study. Electronically signed by: Cait Weiner MD (04/08/2019 1:45 PM) [place] [id number]
[2019-04-08 15:00] VITALS: BP 136/80
--- NOTE | 2019-04-08 15:48 | PDOC ---
PROGRESS NOTES Assessment Assessment Abnormal HCT finding, but no acute abnormality on MRI. Confusion. Generalized weakness Metabolic encephalopathy. AFib. Pneumonia? HTN. Renal failure. Morbid obesity. No evidence of acute CVA or HSV encephalitis this time. RECOMMENDATIONS/PLAN:. Treat medical diseases. OT/PT. Weight reduction. FU with PCP. EEG on 04/04/19: Within normal. Brain MRI on 04/04/19: No acute abnormal findings. HISTORY OF THE PRESENT ILLNESS: This is a 53-y-old AA female patient with above medical diseases has been having mental status changes, confusion and generalized weakness for about 1 week. She was seen in [facility] ER and her HCT was reported questionable bilateral temporal lobe edema, so she was transferred to [facility] for further evaluation. Patient denied recent acute illness. No focalized sensory or motor deficits except generalized weakness. PAST MEDICAL HISTORY: Hypertension, atrial fibrillation, history of CKD, history of morbid obesity, history of obstructive sleep apnea, history of asthma, osteoarthritis, fibromyalgia, history of malignant hyperthermia. PAST SURGERY HISTORY: Gastric bypass surgery in 2004, lost 135 pounds, but she has gained 25 pounds in the last 3 weeks. . ALLERGIES: ACETAMINOPHEN, BACLOFEN, LATEX, and PROPOXYPHENE. MEDICATIONS: Refer to MAR REVIEW OF SYSTEMS: Constitutional: Morbid obesity.. Head: No traumatic brain or head injury. Skin: No edema, or rash. Ear: No infection, tinnitus. Eyes: No vision loss or color blindness. Nose: No bleeding or purulent discharges. Hearing: No hearing decrease. Neck: No injury. Breast: No history of cancer, masses,or discharges. Cardiac: AFib, HTN. Pulmonary: No COPD. GI: No GI ulcer, GI bleeding. Urinary/genital: UTI. Endocrinologic: Diabetes Mellitus. Skeletomuscular: Generalized weakness. Neurological: see HP. Psychiatric: Denies drug use/abuse. Otherwise, not [id number] review of systems. PHYSICAL EXAMINATION: General appearance is in no acute distress. HEENT: Normocephalic and nontraumatic. Eyes, nose, ears, and throat are unremarkable. Neck is supple. No lymphadenopathy. No crepitus. Cardiovascular: S1, S2, regular rate and rhythm. Pulmonary: decreased to auscultation bilaterally. Abdomen: Bowel sounds are positive. Extremities: No rash, lesions, or edema. No restriction of range of motion NEUROLOGICAL EXAMINATION: Awake. Oriented to time, place and person. PERRL. EOMI. CN: no focal findings. Muscle tone: within normal. Muscle strength: 5- due to obesity. DTR: 0-1 due to obesity. Plantar reflex: Flexor response bilaterally Gait: able to walk with a walker. Sensory exam: no abnormal findings. No cerebellar signs elicited. F-T-N test accurate. Objective Objective Vital Signs Date Time Temp Pulse Resp B/P (MAP) Pulse Ox O2 Delivery O2 Flow Rate FiO2 04/08/19 15:41 93 Nasal Cannula 2.0 04/08/19 11:00 98.2 78 20 162/87 (112) 98.2 Intake and Output 04/08/19 07:00 Intake Total 1190 ml Output Total 1400 ml Balance -210 ml Intake Oral 1190 ml Output Urine Total 1400 ml # Voids 2 # Bowel Movements 4 Vitals Signs Vitals VS - Last 72 Hours, by Label Date Time Temp Pulse Resp B/P (MAP) Pulse Ox O2 Delivery O2 Flow Rate FiO2 04/08/19 15:41 93 Nasal Cannula 2.0 04/08/19 12:32 93 Nasal Cannula 2.0 04/08/19 11:30 Nasal Cannula 2.0 04/08/19 11:00 98.2 78 20 162/87 (112) 93 Nasal Cannula 2.0 98.2 04/08/19 08:34 82 158/84 04/08/19 08:33 82 158/84 04/08/19 08:32 92 Room Air 04/08/19 08:31 82 158/84 04/08/19 08:00 Room Air 04/08/19 07:42 91 Room Air 04/08/19 07:00 98.2 81 20 158/86 (110) 95 Nasal Cannula 2.0 98.2 04/08/19 03:05 18 92 Nasal Cannula 2.0 04/08/19 02:12 98.2 82 20 145/88 (107) 92 Nasal Cannula 2.0 98.2 04/08/19 02:02 20 Room Air 04/08/19 00:20 98 BiPAP/CPAP 04/07/19 23:58 18 93 Nasal Cannula 2.0 04/07/19 22:42 98.3 85 16 142/91 (108) 93 Nasal Cannula 2.0 98.3 04/07/19 22:00 Nasal Cannula 2.0 04/07/19 21:30 96 Nasal Cannula 2.0 04/07/19 21:24 81 143/84 04/07/19 20:00 Nasal Cannula 2.0 04/07/19 19:57 18 2.0 04/07/19 19:46 98.6 81 16 143/84 (103) 96 Nasal Cannula 2.0 98.6 04/07/19 16:05 Nasal Cannula 2.0 04/07/19 15:00 97.6 82 20 157/94 (115) 96 2.0 97.6 04/07/19 14:46 99 Nasal Cannula 2.0 04/07/19 11:00 98.1 81 20 144/76 (98) 99 2.0 98.1 04/07/19 09:22 90 147/86 04/07/19 09:22 90 147/86 04/07/19 09:21 90 147/86 04/07/19 08:10 95 Nasal Cannula 2.0 04/07/19 08:04 95 Nasal Cannula 2.0 04/07/19 08:00 Nasal Cannula 2.0 04/07/19 07:00 98.4 90 20 147/86 (106) 95 2.0 98.4 Laboratory Laboratory Laboratory Tests Test 04/08/19 03:39 White Blood Count 8.3 x10^3/uL (4.0-11.0) Red Blood Count 3.59 x10^6/uL (3.50-5.40) Hemoglobin 10.0 g/dL (12.0-15.5) Hematocrit 30.8 % (36.0-47.0) Mean Corpuscular Volume 86 fL (79-100) Mean Corpuscular Hemoglobin 28 pg (25-35) Mean Corpuscular Hemoglobin Concent 33 g/dL (31-37) Red Cell Distribution Width 18.3 % (11.5-14.5) Platelet Count 351 x10^3/uL (140-400) Neutrophils (%) (Auto) 58 % (31-73) Lymphocytes (%) (Auto) 25 % (24-48) Monocytes (%) (Auto) 12 % (0-9) Eosinophils (%) (Auto) 5 % (0-3) Basophils (%) (Auto) 1 % (0-3) Neutrophils # (Auto) 4.8 x10^3/uL (1.8-7.7) Lymphocytes # (Auto) 2.1 x10^3/uL (1.0-4.8) Monocytes # (Auto) 1.0 x10^3/uL (0.0-1.1) Eosinophils # (Auto) 0.4 x10^3/uL (0.0-0.7) Basophils # (Auto) 0.0 x10^3/uL (0.0-0.2) Sodium Level 143 mmol/L (136-145) Potassium Level 3.0 mmol/L (3.5-5.1) Chloride Level 107 mmol/L (98-107) Carbon Dioxide Level 28 mmol/L (21-32) Anion Gap 8 (6-14) Blood Urea Nitrogen 4 mg/dL (7-20) Creatinine 0.8 mg/dL (0.6-1.0) Estimated GFR (Cockcroft-Gault) 90.1 Glucose Level 73 mg/dL (70-99) Calcium Level 8.7 mg/dL (8.5-10.1) Medication Medications Current Medications Enoxaparin Sodium (Lovenox 40mg Syringe) 40 mg 1X ONCE SQ Last administered on 04/08/19at 12:07; Start 04/08/19 at 10:00; Stop 04/08/19 at 10:11; Status DC Ergocalciferol (Vitamin D2) 50,000 unit WEEKLY PO ; Start 04/12/19 at 09:00 Potassium Chloride (Klor-Con) 40 meq 1X ONCE PO Last administered on 04/08/19at 12:07; Start 04/08/19 at 10:00; Stop 04/08/19 at 10:11; Status DC Potassium Chloride (Klor-Con) 40 meq 1X ONCE PO Last administered on 04/08/19at 15:35; Start 04/08/19 at 14:00; Stop 04/08/19 at 14:01; Status DC Comment Review of Relevant I have reviewed the following items samira (where applicable) has been applied. JO CORNEJO MD Apr 08, 2019 15:48
--- NOTE | 2019-04-08 18:04 | NUR ---
Discharge Note: NICK MCADAMS [address] Discharge instructions and discharge home medications reviewed with Nurse Danielle at [facility] [place] [facility] rehab and a copy given to transport. All questions have been answered and understanding verbalized. The following instructions and handouts were given: dc package, prx for ms contin and lortab. Discontinued iv lines and catheter intact.
[2019-04-12] MEDS ORDERED: ERGOCALCIFEROL (VITAMIN D2) 50,000 UNIT CAPSULE. PO SCH (09:00)
--- NOTE | 2019-04-19 19:35 | PDOC ---
Provider Note Provider Note Discharge summary dictated#[id number] SHIRIN XIONG MD Apr 19, 2019 19:35
--- NOTE | 2019-04-19 22:30 | DS ---
DATE OF DISCHARGE: 04/08/2019 REASON FOR ADMISSION TO THE HOSPITAL: Altered mental status and pneumonia. CONSULTATIONS: 1. Dr. Friedman. 2. Dr. Dolan. 3. Dr. Plummer. PROCEDURES DONE: 1. CT head. 2. MRI of the brain. 3. EEG 4. CT chest. HOSPITAL COURSE: The patient is a 53-year-old female. The patient who was brought to the ER for mental status changes. She has chronic fibromyalgia. Takes chronic narcotic pain medications. She was found to have infiltrates in the lung. Chest x-ray shows bilateral lung infiltrates. The patient also had a CT of the head that was negative. MRI of the brain was negative. EEG, no seizure activity. The patient was found to have renal insufficiency, creatinine around 4. Seen by Renal and she was given IV fluids. Her condition improved. The patient was treated with broad-spectrum antibiotics for possible infection as well as cover viral herpes simplex encephalitis. The patient did improve and white count was 17 and creatinine 4.8. At the time of discharge, white count came down to 8 and urine drug screen was positive for opiates. Serology was negative for RPR, negative for C. difficile and brain MRI was negative. CT chest shows patchy airspace opacities in both lungs. The patient was followed by Infectious Disease, Neurology and Pulmonology and antibiotic was deescalated for course of a week and the patient's kidney function back to normal. White count was normal. No more fever. Antibiotic was stopped after all the culture was negative. The patient still had infiltrates in the lung. It was thought it would take some time for the lungs to improve. The patient was transferred to assisted unit and the plan is to monitor chest x-rays weekly, follow with the club steward. As mentioned, the kidney function remained stable. FINAL DIAGNOSES: 1. Mental status changes encephalopathy due to combination of infection,renal failure and narcotics. 2. Pneumonia bilateral pneumonia suspect gram neg /gram positive. 3. Acute kidney failure due to vasomotor,resolved. 4. Fibromyalgia. 5. Narcotic pain medications. 6. General debility. 7. Antibiotic-associated diarrhea, negative for C. difficile Patient was discharged to SNF. SHIRIN XIONG MD DR: SAVANAH/meenu JOB#: [id number] / [id number] DANNA Price MD
== END 2019-04-08 19:05 | DRG 682 ==
LOC: 2 SOUTH 00:06
PROVIDERS: ADMIT Internal Medicine; ATTEND Internal Medicine
PROC: 5A09357 Assistance with Respiratory Ventilation, Less than 24 Consecutive Hours, Continuous Positive Airway Pressure (ICD-10-PCS; principal; 2019-04-04)
DX: N17.9 Acute kidney failure, unspecified (principal); G93.41 Metabolic encephalopathy; J96.01 Acute respiratory failure with hypoxia; J18.1 Lobar pneumonia, unspecified organism; E66.2 Morbid (severe) obesity with alveolar hypoventilation; E87.1 Hypo-osmolality and hyponatremia; J94.2 Hemothorax; Z68.43 Body mass index [BMI] 50.0-59.9, adult; G89.29 Other chronic pain; I12.9 Hypertensive chronic kidney disease with stage 1 through stage 4 chronic kidney disease, or unspecified chronic kidney disease; I48.91 Unspecified atrial fibrillation; J45.909 Unspecified asthma, uncomplicated; K12.1 Other forms of stomatitis; K59.00 Constipation, unspecified; M17.0 Bilateral primary osteoarthritis of knee; M75.92 Shoulder lesion, unspecified, left shoulder; M79.7 Fibromyalgia; N18.9 Chronic kidney disease, unspecified; N76.0 Acute vaginitis; Z79.891 Long term (current) use of opiate analgesic; Z82.49 Family history of ischemic heart disease and other diseases of the circulatory system; Z83.3 Family history of diabetes mellitus; Z85.42 Personal history of malignant neoplasm of other parts of uterus; Z86.19 Personal history of other infectious and parasitic diseases; Z90.710 Acquired absence of both cervix and uterus; Z91.040 Latex allergy status; Z98.1 Arthrodesis status; Z98.84 Bariatric surgery status; Z98.891 History of uterine scar from previous surgery; M19.90 Unspecified osteoarthritis, unspecified site
CPT/HCPCS: 36415; 70551; 71045; 71250; 80048; 80053; 80307; 81001; 82607; 83880; 84443; 85025; 85027; 86593; 87493; 90471; 90686; 93306; 93971; 94640; 94660; 94760; 95816; J0133; J0456; J0696; J1650; J2248; J2405; J7030; J7050; J7620; J7626; Q0144; 97110; 97530; 97535; G0378